=== PATIENT | female | born 1950 | race Caucasian/White ===

== ENCOUNTER 2016-07-21 06:27 | Day surgery (SDC) | payer BC, MEDICARE ==
[~2016-07-21] VITALS: Ht 167.6 cm; Wt 151.7 kg
[~2016-07-21 06:27] MED LIST: ACET-2723 PO; AMLO5TAB2 PO; ASPI-557 PO; BISO5TAB2 PO; CHOL200024 PO; LEVO25TA9 PO; METF500T7 PO; RABE20TA28 PO
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
--- OUTSIDE RECORDS SUMMARY | 2016-07-21 06:31 | XMS REPORT | Referral Summary ---
Author Author [facility] Organization [facility] Address Unknown Phone Unavailable Care Team Providers Care Senior Software Manager Name Role Phone Brijesh Lyons Primary Care Physician [phone] Encounter [facility] Date(s): 12/28/14 - 12/28/14 [facility], [address] [place] [address]- Discharge Disposition: 01-Home or Self Care Attending Physician: Lex Lyons MD Admitting Physician: Lex Lyons MD Vital Signs Most recent to 1 oldest [Reference Range]: Temperature Tympanic 35.6 degC [36.6-38.1 degC] *LOW* (12/28/14 8:25 AM) Peripheral Pulse 84 bpm Rate [60-100 bpm] (12/28/14 8:25 AM) Respiratory Rate 18 br/min [14-20 br/min] (12/28/14 8:25 AM) Blood Pressure 184/88 mmHg [90-140/60-90 mmHg] *HI* (12/28/14 8:25 AM) SpO2 98 % (12/28/14 8:25 AM) Problem List Condition Effective Dates Status Health Status Informant Acute chest Active pain(Confirmed) Left anterior knee Active pain(Confirmed) Benign essential Active hypertension(Confirm ed) Visit for screening Active mammogram(Confirmed) Leg Active cramps(Confirmed) Elevated Active BP(Confirmed) GERD Active (gastroesophageal reflux disease)(Confirmed) Adult Active hypothyroidism(Confi rmed) Impaired fasting Active blood sugar(Confirmed) Well adult Active exam(Confirmed) Morbid Active obesity(Confirmed) Neck pain(Confirmed) Active Osteoarthritis(Confi Active rmed) Need for shingles Active vaccine(Confirmed) Asymptomatic Active PVCs(Confirmed) Allergies, Adverse Reactions, Alerts Substance Reaction Severity Status citalopram1 Adverse reaction Active lisinopril dry cough, racing heartbeat, and mild chest Active discomfort tobramycin ophthalmic2 adverse reaction Active traMADol3 adverse reaction Active 1Worsened GERD 2Swelling of eyes 3Elevated Blood Pressure and Hypertension Medications amLODIPine 5 mg oral tablet 5 mg 1 tabs, Oral, Daily, # 30 tabs, 1 Refill(s), Pharmacy: [facility] # [id number], 1 tabs Oral Daily Start Date: 05/25/15 Status: Ordered bisoprolol 5 mg oral tablet 2.5 mg 0.5 tabs, Oral, Daily, # 45 tabs, 6 Refill(s), Pharmacy: [facility] #[id number], 0.5 tabs Oral Daily Start Date: 05/02/15 Status: Ordered levothyroxine 25 mcg (0.025 mg) oral tablet 25 mcg 1 tabs, Oral, Daily, # 30 tabs, 11 Refill(s), Pharmacy: [facility] #[id number], 1 tabs Oral Daily Start Date: 11/16/14 Status: Ordered Miscellaneous DME DME Item Accu check Lindsay test strips. Test blood sugar one time daily for diabetes type 2. E11.9, See Instructions, # 100 Each, 3 Refill(s), Pharmacy: [facility] #[id number], Accu check Lindsay test strips. Test blood sugar one time daily for mark... Start Date: 01/25/15 Status: Ordered Miscellaneous DME DME Item Accu check Lindsay Lancets. Use to test blood sugar daily for diabetes type 2 E11.9, See Instructions, # 100 Each, 3 Refill(s), Pharmacy: [facility] #[id number], Accu check Lindsay Lancets. Use to test blood sugar daily for diabetes type 2 E11.... Start Date: 01/25/15 Status: Ordered RABEprazole 20 mg oral delayed release tablet 20 mg 1 tabs, Oral, Daily, # 60 tabs, 11 Refill(s), Pharmacy: [facility] # [id number], 1 tabs Oral Daily,x60 days Start Date: 11/15/14 Stop Date: 11/04/16 Status: Ordered Tylenol Regular Strength mg, Oral, q4hr, 0 Refill(s) Start Date: 04/04/15 Status: Ordered Vitamin D3 2000 IU, Oral, Daily, 0 Refill(s) Start Date: 09/14/13 Status: Ordered Results Chemistry Most recent to 1 oldest [Reference Range]: Sodium Lvl [135-144 142 mEq/L mEq/L] (12/28/14 9:11 AM) Potassium Lvl 4.8 mEq/L [3.5-5.2 mEq/L] (12/28/14 9:11 AM) Chloride [99-111 109 mEq/L mEq/L] (12/28/14 9:11 AM) CO2 [22-31 mEq/L] 25 mEq/L (12/28/14 9:11 AM) AGAP [3-20] 8 (12/28/14 9:11 AM) BUN [10-20 mg/dL] 27 mg/dL *HI* (12/28/14 9:11 AM) Glucose Lvl [70-99 133 mg/dL mg/dL] *HI* (12/28/14 9:11 AM) Creatinine Lvl 1.23 mg/dL [0.57-1.11 mg/dL] *HI* (12/28/14 9:11 AM) eGFR [>60 mL/min] 44 mL/min 1 *ABN* (12/28/14 9:11 AM) Calcium Lvl 9.6 mg/dL [8.9-10.5 mg/dL] (12/28/14 9:11 AM) TSH [0.35-4.94] 3.86 (12/28/14 9:11 AM) Hgb A1c [4.1-5.6 %] 6.1 % *HI* (12/28/14 9:11 AM) eAvg Glucose 128.4 mg/dL (12/28/14 9:11 AM) 1Result Comment: Multiply eGFR results by 1.21 for race. Immunizations Vaccine Date Refusal Reason tetanus/diphth/pertuss (Tdap) adult/adol 09/29/05 hepatitis A adult vaccine 11/15/14 influenza virus vaccine, inactivated 02/08/15 Procedures Procedure Date Related Diagnosis Body Site Biopsy Bone Marrow1 02/23/15 Procedure with Anesthesia2 02/23/15 Collection of venous blood by venipuncture 12/28/14 Colonoscopy3 2009 Esophagogastroduodenoscopy 2009 Esophagogastroduodenoscopy 2004 Chest pain4 1999 Nasal endoscopy with nasal polypectomy5 1997 Caesarean delivery following previous 1991 caesarean6 Umbilical herniorrhaphy 1985 Cholecystectomy 1974 Tonsillectomy 1968 SVD7 1auto-populated from documented surgical case 2auto-populated from documented surgical case 3normal, repeat in 10 years 4Hospitalized for chest pain and acid reflux 5sinus surgery 6only one 72 SVDs Social History Social History Type Response Smoking Status Never smoker Assessment and Plan Extracted from: Title: Ambulatory Patient Education Author: Lex Lyons MD Date: 12/28 Family Medicine Premature Ventricular Contraction Premature ventricular contraction (PVC) is an irregularity of the heart rhythm involving extra or skipped heartbeats. In some cases, they may occur without obvious cause or heart disease. Other times, they can be caused by an electrolyte change in the blood. These need to be corrected. They can also be seen when there is not enough oxygen going to the heart. A common cause of this is plaque or cholesterol buildup. This buildup decreases the blood supply to the heart. In addition, extra beats may be caused or aggravated by: Excessive smoking. Alcohol consumption. Caffeine. Certain medications Some street drugs. SYMPTOMS The sensation of feeling your heart skipping a beat (palpitations). In many cases, the person may have no symptoms. SIGNS AND TESTS A physical examination may show an occasional irregularity, but if the PVC beats do not happen often, they may not be found on physical exam. Blood pressure is usually normal. Other tests that may find extra beats of the heart are: An EKG (electrocardiogram) A Holter monitor which can monitor your heart over longer periods of time An Angiogram (study of the heart arteries). TREATMENT Usually extra heartbeats do not need treatment. The condition is treated only if symptoms are severe or if extra beats are very frequent or are causing problems. An underlying cause, if discovered, may also require treatment. Treatment may also be needed if there may be a risk for other more serious cardiac arrhythmias. PREVENTION Moderation in caffeine, alcohol, and tobacco use may reduce the risk of ectopic heartbeats in some people. Exercise often helps people who lead a sedentary (inactive) lifestyle. PROGNOSIS PVC heartbeats are generally harmless and do not need treatment. RISKS AND COMPLICATIONS Ventricular tachycardia (occasionally). There usually are no complications. Other arrhythmias (occasionally). SEEK IMMEDIATE MEDICAL CARE IF: You feel palpitations that are frequent or continual. You develop chest pain or other problems such as shortness of breath, sweating, or nausea and vomiting. You become light-headed or faint (pass out). You get worse or do not improve with treatment. Document Released: 11/14/2004 Document Revised: 06/21/2012 Document Reviewed: [facility] Patient Information 2015 [employer]. This information is not intended to replace advice given to you by your health care provider. Make sure you discuss any questions you have with your health care provider. No follow up information was provided. Extracted from: Title: PVCs, HTN Author: Lex Lyons MD Date: 12/28/14 Impression and Plan Diagnosis Acute chest pain (ICD9 786.50, Working, Medical). Adult hypothyroidism (ICD9 244.9, Working, Medical). Asymptomatic PVCs (ICD9 427.69, Working, Medical). Benign essential hypertension (ICD9 401.1, Working, Medical). GERD (gastroesophageal reflux disease) (ICD9 530.81, Working, Medical). Impaired fasting blood sugar (ICD9 790.21, Working, Medical). Leg cramps (ICD9 729.82, Working, Medical). Morbid obesity (ICD9 278.01, Working, Medical). Neck pain (ICD9 723.1, Working, Medical). Plan: 1) Healthy diet and daily exercise generally helps most things. 2) Flu shot recommended this fall. 3) Increase your BP med to the 75/50 dose daily. 4) Stop your ibuprofen. May try Voltaren gel instead to the left knee. 5) May continue your other meds. 6) Lab today. 7) See me in 6 weeks and as needed. . Orders Orders (Selected) Outpatient Orders Ordered Office Visit Level 4 Est 21752: Future (On Hold) BMP: Hgb A1c: TSH 3rd Generation: Prescriptions Prescribed Voltaren 1% topical gel: 4 g, Topical, QID, PRN: as needed for knee pain, 480 g , 11 Refill(s) triamterene-hydrochlorothiazide 75 mg-50 mg oral tablet: 1 tabs, Oral, Daily, 30 tabs, 11 Refill(s). Dx/Order Association Plan: Diagnosis: Acute chest pain Comment: Ordered: Office Visit Level 4 Est [id number]; 12/28/14 8:26:00 CDT, Benign essential hypertension | Acute chest pain | GERD (gastroesophageal reflux disease) | Neck pain | Impaired fasting blood sugar Diagnosis: Adult hypothyroidism Comment: Diagnosis: Asymptomatic PVCs Comment: Diagnosis: Benign essential hypertension Comment: Ordered: Office Visit Level 4 Est [id number]; 12/28/14 8:26:00 CDT, Benign essential hypertension | Acute chest pain | GERD (gastroesophageal reflux disease) | Neck pain | Impaired fasting blood sugar Diagnosis: GERD (gastroesophageal reflux disease) Comment: Ordered: Office Visit Level 4 Est [id number]; 12/28/14 8:26:00 CDT, Benign essential hypertension | Acute chest pain | GERD (gastroesophageal reflux disease) | Neck pain | Impaired fasting blood sugar Diagnosis: Impaired fasting blood sugar Comment: Ordered: Office Visit Level 4 Est [id number]; 12/28/14 8:26:00 CDT, Benign essential hypertension | Acute chest pain | GERD (gastroesophageal reflux disease) | Neck pain | Impaired fasting blood sugar Diagnosis: Leg cramps Comment: Diagnosis: Morbid obesity Comment: Diagnosis: Neck pain Comment: Ordered: Office Visit Level 4 Est [id number]; 12/28/14 8:26:00 CDT, Benign essential hypertension | Acute chest pain | GERD (gastroesophageal reflux disease) | Neck pain | Impaired fasting blood sugar Diagnosis: Benign essential hypertension Comment: Diagnosis: Impaired fasting blood sugar Comment: Diagnosis: Adult hypothyroidism Comment: Additional Orders: Comment: Ordered: Voltaren 1% topical gel,4 g, Topical, QID, as needed for knee pain, # 480 g, 11 Refill(s), Pharmacy: [facility] #[id number] Ordered: triamterene-hydrochlorothiazide 75 mg-50 mg oral tablet,1 tabs, Oral, Daily, # 30 tabs, 11 Refill(s), Pharmacy: [facility] #[id number] End of Orders ."
--- OUTSIDE RECORDS SUMMARY | 2016-07-21 06:31 | XMS REPORT | Referral Summary ---
Author Author [facility] Organization [facility] Address Unknown Phone Unavailable Care Team Providers Care Geotechnical Field Technician Name Role Phone Brijesh Lyons Primary Care Physician [phone] Encounter VC Date(s): 02/23/15 - 02/23/15 [facility] [address] [place] [address] [phone] Discharge Diagnosis: Gammopathy, monoclonal Discharge Disposition: 01-Home or Self Care Attending Physician: Zaid Mccurdy DO Admitting Physician: Zaid Mccurdy DO Vital Signs Most recent to 1 oldest [Reference Range]: Temperature Temporal 35.8 degC Artery [36.3-37.8 *LOW* degC] (02/23/15 8:24 AM) Peripheral Pulse 77 bpm Rate [60-100 bpm] (02/23/15 8:24 AM) Heart Rate Monitored 71 bpm [60-100 bpm] (02/23/15 10:15 AM) Respiratory Rate 24 br/min [14-20 br/min] *HI* (02/23/15 10:15 AM) Blood Pressure 121/59 mmHg [90-140/60-90 mmHg] (02/23/15 10:15 AM) SpO2 95 % (02/23/15 10:15 AM) Problem List Condition Effective Dates Status Health Status Informant Acute chest Active pain(Confirmed) Left anterior knee Active pain(Confirmed) Benign essential Active hypertension(Confirm ed) Visit for screening Active mammogram(Confirmed) Leg Active cramps(Confirmed) Elevated Active BP(Confirmed) GERD Active (gastroesophageal reflux disease)(Confirmed) Adult Active hypothyroidism(Confi rmed) Impaired fasting Active blood sugar(Confirmed) Well adult Active exam(Confirmed) Morbid Active obesity(Confirmed) Neck pain(Confirmed) Active Need for shingles Active vaccine(Confirmed) Asymptomatic Active PVCs(Confirmed) Allergies, Adverse Reactions, Alerts Substance Reaction Severity Status citalopram1 Adverse reaction Active tobramycin ophthalmic2 adverse reaction Active traMADol3 adverse reaction Active 1Worsened GERD 2Swelling of eyes 3Elevated Blood Pressure and Hypertension Medications amLODIPine 10 mg oral tablet 10 mg 1 tabs, Oral, Daily, # 30 tabs, 11 Refill(s), Pharmacy: [facility] # [id number], 1 tabs Oral Daily Start Date: 02/08/15 Status: Ordered levothyroxine 25 mcg (0.025 mg) oral tablet 25 mcg 1 tabs, Oral, Daily, # 30 tabs, 11 Refill(s), Pharmacy: [facility] #[id number], 1 tabs Oral Daily Start Date: 11/16/14 Status: Ordered Miscellaneous DME DME Item Accu check Lindsay test strips. Test blood sugar one time daily for diabetes type 2. E11.9, See Instructions, # 100 Each, 3 Refill(s), Pharmacy: [facility] #[id number], Accu check Lindsay test strips. Test blood sugar one time daily for mark... Start Date: 01/25/15 Status: Ordered Miscellaneous DME DME Item Accu check Lindsay Lancets. Use to test blood sugar daily for diabetes type 2 E11.9, See Instructions, # 100 Each, 3 Refill(s), Pharmacy: [facility] #[id number], Accu check Lindsay Lancets. Use to test blood sugar daily for diabetes type 2 E11.... Start Date: 01/25/15 Status: Ordered RABEprazole 20 mg oral delayed release tablet 20 mg 1 tabs, Oral, Daily, # 60 tabs, 11 Refill(s), Pharmacy: [facility] # [id number], 1 tabs Oral Daily,x60 days Start Date: 11/15/14 Stop Date: 11/04/16 Status: Ordered Vitamin D3 2000 IU, Oral, Daily, 0 Refill(s) Start Date: 09/14/13 Status: Ordered Results Hematology Most recent to 1 oldest [Reference Range]: WBC [4.8-10.8 5.4 10*3/uL 10*3/uL] (02/23/15 8:35 AM) RBC [4.00-5.20] 4.38 (02/23/15 8:35 AM) Hgb [12.0-16.0 12.4 gm/dL gm/dL] (02/23/15 8:35 AM) Hct [37.0-47.0 %] 36.5 % *LOW* (02/23/15 8:35 AM) MCV [82.0-99.0 fL] 83.3 fL (02/23/15 8:35 AM) MCH [27.0-32.0 pg] 28.3 pg (02/23/15 8:35 AM) MCHC [32.0-36.0 34.0 gm/dL gm/dL] (02/23/15 8:35 AM) RDW [11.5-14.5 %] 13.5 % (02/23/15 8:35 AM) Platelet [150-400 163 10*3/uL 10*3/uL] (02/23/15 8:35 AM) MPV [9.4-12.4 fL] 11.0 fL (02/23/15 8:35 AM) Immature 0.2 % Granulocytes (02/23/15 8:35 AM) [0.0-1.0 %] Neutrophils [51-75 78 % %] *HI* (02/23/15 8:35 AM) Lymphocytes [20-46 14 % %] *LOW* (02/23/15 8:35 AM) Monocytes [4-11 %] 5 % (02/23/15 8:35 AM) Eosinophils [0-4 %] 2 % (02/23/15 8:35 AM) Basophils [0-2 %] 0 % (02/23/15 8:35 AM) Neutro Absolute 4.24 10*3 [1.90-7.00 10*3] (02/23/15 8:35 AM) Lymph Absolute 0.74 10*3 [0.80-3.30 10*3] *LOW* (02/23/15 8:35 AM) [place] Absolute 0.28 10*3 [0.30-1.00 10*3] *LOW* (02/23/15 8:35 AM) Eos Absolute 0.12 10*3 [0.00-0.50 10*3] (02/23/15 8:35 AM) Baso Absolute 0.02 10*3 [0.00-0.20 10*3] (02/23/15 8:35 AM) Nucleated RBC 0.0 /100 WBC Automated [0 /100 (02/23/15 8:35 AM) WBC] Chemistry Most recent to 1 oldest [Reference Range]: Blood Glucose, 110 mg/dL Capillary [70-100 *HI* mg/dL] (02/23/15 8:36 AM) Blood Glucose, 110 mg/dL Capillary [74-106 *HI* mg/dL] (02/23/15 8:36 AM) Immunizations Vaccine Date Refusal Reason hepatitis A adult vaccine 11/15/14 influenza virus vaccine, inactivated 02/08/15 Procedures Procedure Date Related Diagnosis Body Site Biopsy Bone Marrow1 02/23/15 Procedure with Anesthesia2 02/23/15 Colonoscopy2009 Esophagogastroduodenoscopy 2009 Esophagogastroduodenoscopy 2003 Chest pain4 1999 Nasal endoscopy with nasal polypectomy5 1997 Caesarean delivery following previous 1990 caesarean6 Umbilical herniorrhaphy 1984 Cholecystectomy 1974 Tonsillectomy 1969 SVD7 1auto-populated from documented surgical case 2auto-populated from documented surgical case 3normal, repeat in 10 years 4Hospitalized for chest pain and acid reflux 5sinus surgery 6only one 72 SVDs Social History Social History Type Response Smoking Status Never smoker Assessment and Plan No data available for this section
--- OUTSIDE RECORDS SUMMARY | 2016-07-21 06:31 | XMS REPORT | Referral Summary ---
Author Author [facility] Organization [facility] Address Unknown Phone Unavailable Care Team Providers Care Yacht Captain Name Role Phone Brijesh Lyons Primary Care Physician [phone] Encounter VC Date(s): 02/08/15 - 02/08/15 [facility] [address] [place] [address] [place] Discharge Disposition: 01-Home or Self Care Attending Physician: Lex Lyons MD Admitting Physician: Lex Lyons MD Vital Signs Most recent to 1 oldest [Reference Range]: Temperature Tympanic 35.8 degC [36.6-38.1 degC] *LOW* (02/08/15 10:51 AM) Peripheral Pulse 84 bpm Rate [60-100 bpm] (02/08/15 10:51 AM) Blood Pressure 138/76 mmHg [90-140/60-90 mmHg] (02/08/15 10:51 AM) Problem List Condition Effective Dates Status [...] TABLET BY MOUTH DAILY, # 30 tabs, 3 Refill(s), eRx: [facility] #[id number], TAKE ONE TABLET BY MOUTH DAILY Start Date: 07/19/15 Status: Ordered Aspirin Low Dose 81 mg, Oral, Daily, 0 Refill(s) Start Date: 07/30/15 Status: Ordered bisoprolol 5 mg oral tablet 2.5 mg 0.5 tabs, Oral, Daily, # 45 tabs, 6 Refill(s), Pharmacy: [facility] #[id number], 0.5 tabs Oral Daily Start Date: 05/02/15 Status: Ordered levothyroxine 25 mcg (0.025 mg) oral tablet 25 mcg 1 tabs, Oral, Daily, # 30 tabs, 11 Refill(s), Pharmacy: [facility] #[id number], 1 tabs Oral Daily Start Date: 11/16/14 Status: Ordered Miscellaneous DME DME Item Accu check Lindsay test strips. Test blood sugar one time daily for diabetes type 2. E11.9, See Instructions, # 100 Each, 3 Refill(s), Pharmacy: [facility] #[id number], Accu check Lindsay test strips. Test blood sugar one time daily for mark... Start Date: 01/25/15 Status: Ordered Miscellaneous DME DME Item Accu check Lindsay Lancets. Use to test blood sugar daily for diabetes type 2 E11.9, See Instructions, # 100 Each, 3 Refill(s), Pharmacy: [facility] #[id number], Accu check Lindsay Lancets. Use to test blood sugar daily for diabetes type 2 E11.... Start Date: 01/25/15 Status: Ordered Tylenol Regular Strength 650 mg, Oral, Daily, for left knee pain, 0 Refill(s) Start Date: 04/04/15 Status: Ordered Vitamin D3 2000 IU, Oral, Daily, 0 Refill(s) Start Date: 09/14/13 Status: Ordered Results No data available for this section Immunizations Vaccine Date Refusal Reason tetanus/diphth/pertuss (Tdap) adult/adol 09/29/05 hepatitis A adult vaccine 11/15/14 influenza virus vaccine, inactivated 02/08/15 Procedures Procedure Date Related Diagnosis Body Site Biopsy Bone Marrow1 02/23/15 Procedure with Anesthesia2 02/23/15 Colonoscopy3 2009 Esophagogastroduodenoscopy 2009 Esophagogastroduodenoscopy 2004 Chest pain4 1999 Nasal endoscopy with nasal polypectomy5 1997 Caesarean delivery following previous 1991 caesarean6 Umbilical herniorrhaphy 1985 Cholecystectomy 1975 Tonsillectomy 1969 SVD7 1auto-populated from documented surgical case 2auto-populated from documented surgical case 3normal, repeat in 10 years 4Hospitalized for chest pain and acid reflux 5sinus surgery 6only one 72 SVDs Social History Social History Type Response Smoking Status Never smoker Assessment and Plan Extracted from: Title: Ambulatory Patient Education Author: Lex Lyons MD Date: Family Medicine Diabetes and Exercise Exercising regularly is important. It is not just about losing weight. It has many health benefits, such as: Improving your overall fitness, flexibility, and endurance. Increasing your bone density. Helping with weight control. Decreasing your body fat. Increasing your muscle strength. Reducing stress and tension. Improving your overall health. People with diabetes who exercise gain additional benefits because exercise: Reduces appetite. Improves the body's use of blood sugar (glucose). Helps lower or control blood glucose. Decreases blood pressure. Helps control blood lipids (such as cholesterol and triglycerides). Improves the body's use of the hormone insulin by: Increasing the body's insulin sensitivity. Reducing the body's insulin needs. Decreases the risk for heart disease because exercising: Lowers cholesterol and triglycerides levels. Increases the levels of good cholesterol (such as high-density lipoproteins [HDL]) in the body. Lowers blood glucose levels. YOUR ACTIVITY PLAN Choose an activity that you enjoy and set realistic goals. Your health care provider or chemical production machine operator can help you make an activity plan that works for you. Exercise regularly as directed by your health care provider. This includes: Performing resistance training twice a week such as push-ups, sit-ups, lifting weights, or using resistance bands. Performing 150 minutes of cardio exercises each week such as walking, running, or playing sports. Staying active and spending no more than 90 minutes at one time being inactive. Even short bursts of exercise are good for you. Three 10-minute sessions spread throughout the day are just as beneficial as a single 30-minute session. Some exercise ideas include: Taking the dog for a walk. Taking the stairs instead of the elevator. Dancing to your favorite song. Doing an exercise video. Doing your favorite exercise with a friend. RECOMMENDATIONS FOR EXERCISING WITH TYPE 1 OR TYPE 2 DIABETES Check your blood glucose before exercising. If blood glucose levels are greater than 240 mg/dL, check for urine ketones. Do not exercise if ketones are present. Avoid injecting insulin into areas of the body that are going to be exercised. For example, avoid injecting insulin into: The arms when playing tennis. The legs when jogging. Keep a record of: Food intake before and after you exercise. Expected peak times of insulin action. Blood glucose levels before and after you exercise. The type and amount of exercise you have done. Review your records with your health care provider. Your health care provider will help you to develop guidelines for adjusting food intake and insulin amounts before and after exercising. If you take insulin or oral hypoglycemic agents, watch for signs and symptoms of hypoglycemia. They include: Dizziness. Shaking. Sweating. Chills. Confusion. Drink plenty of water while you exercise to prevent dehydration or heat stroke. Body water is lost during exercise and must be replaced. Talk to your health care provider before starting an exercise program to make sure it is safe for you. Remember, almost any type of activity is better than none. Document Released: 06/19/2004 Document Revised: 08/14/2014 Document Reviewed: ExitCare Patient Information 2015 [employer] [facility]. This information is not intended to replace advice given to you by your health care provider. Make sure you discuss any questions you have with your health care provider. Diabetes and Foot Care Diabetes may cause you to have problems because of poor blood supply ( circulation) to your feet and legs. This may cause the skin on your feet to become thinner, break easier, and heal more slowly. Your skin may become dry, and the skin may peel and crack. You may also have nerve damage in your legs and feet causing decreased feeling in them. You may not notice minor injuries to your feet that could lead to infections or more serious problems. Taking care of your feet is one of the most important things you can do for yourself. HOME CARE INSTRUCTIONS Wear shoes at all times, even in the house. Do not go barefoot. Bare feet are easily injured. Check your feet daily for blisters, cuts, and redness. If you cannot see the bottom of your feet, use a mirror or ask someone for help. Wash your feet with warm water (do not use hot water) and mild soap. Then pat your feet and the areas between your toes until they are completely dry. Do not soak your feet as this can dry your skin. Apply a moisturizing lotion or petroleum jelly (that does not contain alcohol and is unscented) to the skin on your feet and to dry, brittle toenails. Do not apply lotion between your toes. Trim your toenails straight across. Do not dig under them or around the cuticle. File the edges of your nails with an emery board or nail file. Do not cut corns or calluses or try to remove them with medicine. Wear clean socks or stockings every day. Make sure they are not too tight. Do not wear knee-high stockings since they may decrease blood flow to your legs. Wear shoes that fit properly and have enough cushioning. To break in new shoes, wear them for just a few hours a day. This prevents you from injuring your feet. Always look in your shoes before you put them on to be sure there are no objects inside. Do not cross your legs. This may decrease the blood flow to your feet. If you find a minor scrape, cut, or break in the skin on your feet, keep it and the skin around it clean and dry. These areas may be cleansed with mild soap and water. Do not cleanse the area with peroxide, alcohol, or iodine. When you remove an adhesive bandage, be sure not to damage the skin around it. If you have a wound, look at it several times a day to make sure it is healing. Do not use heating pads or hot water bottles. They may burn your skin. If you have lost feeling in your feet or legs, you may not know it is happening until it is too late. Make sure your health care provider performs a complete foot exam at least annually or more often if you have foot problems. Report any cuts, sores, or bruises to your health care provider immediately. SEEK MEDICAL CARE IF: You have an injury that is not healing. You have cuts or breaks in the skin. You have an ingrown nail. You notice redness on your legs or feet. You feel burning or tingling in your legs or feet. You have pain or cramps in your legs and feet. Your legs or feet are numb. Your feet always feel cold. SEEK IMMEDIATE MEDICAL CARE IF: There is increasing redness, swelling, or pain in or around a wound. There is a red line that goes up your leg. Pus is coming from a wound. You develop a fever or as directed by your health care provider. You notice a bad smell coming from an ulcer or wound. Document Released: 03/27/2001 Document Revised: 11/30/2013 Document Reviewed: ExitCare Patient Information 2015 [employer]. This information is not intended to replace advice given to you by your health care provider. Make sure you discuss any questions you have with your health care provider. No follow up information was provided. Extracted from: Title: DM, HTN Author: Lex Lyons MD Date: 02/08/15 Impression and Plan Diagnosis Left anterior knee pain (SZO36-MN M25.562, Working, Medical). Benign essential hypertension (QLF16-WH I10, Working, Medical). GERD (gastroesophageal reflux disease) (LRQ25-YK K21.9, Working, Medical). Adult hypothyroidism (UHS26-WT E03.9, Working, Medical). Morbid obesity (FVX21-XY E66.01, Working, Medical). Type 2 diabetes, diet controlled (UME13-IG E11.9, Working, Medical). Need for influenza vaccination (QAO12-LY Z23, Working, Medical). Plan: 1) Continue your healthy diet and daily exercise. 2) Continue your current meds. 3) Flu shot today. 4) See me in 2 months and as needed. 5) Diabetic Ed sheet #1 given today.. Orders Orders (Selected) Outpatient Orders Ordered Office Visit Level 4 Est 58858: influenza virus vaccine, inactivated: 0.5 mL, IntraMuscular, Once Prescriptions Prescribed amLODIPine 10 mg oral tablet: 10 mg=1 tabs, Oral, Daily, 30 tabs, 11 Refill(s). Dx/Order Association Plan: Diagnosis: Adult hypothyroidism Comment: Diagnosis: Benign essential hypertension Comment: Ordered: Office Visit Level 4 Est 96983; 02/08/15 11:14:00 CDT, Type 2 diabetes, diet controlled | Benign essential hypertension | Left anterior knee pain | GERD (gastroesophageal reflux disease) Diagnosis: GERD (gastroesophageal reflux disease) Comment: Ordered: Office Visit Level 4 Est 68164; 02/08/15 11:14:00 CDT, Type 2 diabetes, diet controlled | Benign essential hypertension | Left anterior knee pain | GERD (gastroesophageal reflux disease) Diagnosis: Left anterior knee pain Comment: Ordered: Office Visit Level 4 Est 42458; 02/08/15 11:14:00 CDT, Type 2 diabetes, diet controlled | Benign essential hypertension | Left anterior knee pain | GERD (gastroesophageal reflux disease) Diagnosis: Morbid obesity Comment: Diagnosis: Need for influenza vaccination Comment: Ordered: influenza virus vaccine, inactivated; 0.5 mL, IntraMuscular, Once, First Dose: 02/08/15 11:16:00 CDT, Stop Date: 02/08/15 11: 16:00 CDT Diagnosis: Type 2 diabetes, diet controlled Comment: Ordered: Office Visit Level 4 Est 50257; 02/08/15 11:14:00 CDT, Type 2 diabetes, diet controlled | Benign essential hypertension | Left anterior knee pain | GERD (gastroesophageal reflux disease) Additional Orders: Comment: Ordered: amLODIPine 10 mg oral tablet,10 mg 1 tabs, Oral, Daily, # 30 tabs, 11 Refill(s), Pharmacy: [facility] #[id number], 1 tabs Oral Daily End of Orders ."
--- OUTSIDE RECORDS SUMMARY | 2016-07-21 06:32 | XMS REPORT | Referral Summary ---
Author Author [facility] Organization [facility] Address Unknown Phone Unavailable Care Team Providers Care Incident Response Lead Name Role Phone Brijesh Lyons Primary Care Physician [phone] Encounter Date(s): 05/16/15 - 05/16/15 [facility] [address] [place] [id number] Discharge Disposition: 01-Home or Self Care Attending Physician: Pedro Gonzalez MD Admitting Physician: Pedro Gonzalez MD Vital Signs No data available for this section Problem List Condition Effective Dates Status Health [...] Hypertension Medications amLODIPine 10 mg oral tablet 5 mg 0.5 tabs, Oral, Daily, # 30 tabs, 11 Refill(s), other reason (Rx), 1 tabs Oral Daily Start Date: 04/04/15 Status: Ordered bisoprolol 5 mg oral tablet 2.5 mg 0.5 tabs, Oral, Daily, # 45 tabs, 6 Refill(s), Pharmacy: [facility] #[id number], 0.5 tabs Oral Daily Start Date: 05/02/15 Status: Ordered levothyroxine 25 mcg (0.025 mg) oral tablet 25 mcg 1 tabs, Oral, Daily, # 30 tabs, 11 Refill(s), Pharmacy: [facility] #[id number], 1 tabs Oral Daily Start Date: 11/16/14 Status: Ordered Miscellaneous DME DME Item Accu check Lindsay test strips. Test blood sugar one time daily for diabetes type 2. E11.9, See Instructions, # 100 Each, 3 Refill(s), Pharmacy: [facility] #[id number], Accu check Lindsay test strips. Test blood sugar one time daily for mark... Start Date: 01/25/15 Status: Ordered Miscellaneous DME DME Item Accu check Lindsay Lancets. Use to test blood sugar daily for diabetes type 2 E11.9, See Instructions, # 100 Each, 3 Refill(s), Pharmacy: [facility] #[id number], Accu check Lindsay Lancets. Use to test blood sugar daily for diabetes type 2 E11.... Start Date: 01/25/15 Status: Ordered RABEprazole 20 mg oral delayed release tablet 20 mg 1 tabs, Oral, Daily, # 60 tabs, 11 Refill(s), Pharmacy: [facility] # [id number], 1 tabs Oral Daily,x60 days Start Date: [...] Anesthesia2 02/23/15 Colonoscopy3 2009 Esophagogastroduodenoscopy 2009 Esophagogastroduodenoscopy 2003 Chest pain4 1999 Nasal endoscopy with nasal polypectomy5 1998 Caesarean delivery following previous 1991 caesarean6 Umbilical herniorrhaphy 1984 Cholecystectomy 1974 Tonsillectomy 1968 SVD7 1auto-populated from documented surgical case 2auto-populated from documented surgical case 3normal, repeat in 10 years 4Hospitalized for chest pain and acid reflux 5sinus surgery 6only one 72 SVDs Social History Social History Type Response Smoking Status Never smoker Assessment and Plan No data available for this section
--- OUTSIDE RECORDS SUMMARY | 2016-07-21 06:32 | XMS REPORT | Referral Summary ---
Author Author [facility], Family Medicine Organization [facility] Address Unknown Phone Unavailable Care Team Providers Care Casting Assistant Name Role Phone Brijesh Lyons Primary Care Physician [phone] Encounter VC Date(s): 10/16/15 - 10/16/15 [facility], [address] [place] [address] Discharge Disposition: 01-Home or Self Care Attending Physician: Lex Lyons MD Admitting Physician: Lex Lyons MD Vital Signs Most recent to 1 oldest [Reference Range]: Temperature Tympanic 35.9 degC [36.6-38.1 degC] *LOW* (10/16/15 9:11 AM) Apical Heart Rate 72 bpm [60-100 bpm] (10/16/15 9:11 AM) Blood Pressure 124/74 mmHg [90-140/60-90 mmHg] (10/16/15 9:11 AM) SpO2 97 % (10/16/15 9:11 AM) Problem List Condition Effective Dates Status [...] DAILY, # 30 tabs, 3 Refill(s), eRx: [facility] #[id number], TAKE ONE TABLET BY MOUTH DAILY Start Date: 07/19/15 Status: Ordered Aspirin Low Dose 81 mg, Oral, Daily, 0 Refill(s) Start Date: 07/30/15 Status: Ordered Benadryl See Instructions, Given IV prior to Rituxan, 0 Refill(s) Start Date: 10/16/15 Status: Ordered bisoprolol 5 mg oral tablet 2.5 mg 0.5 tabs, Oral, Daily, # 45 tabs, 6 Refill(s), Pharmacy: [facility] #[id number], 0.5 tabs Oral Daily Start Date: 05/02/15 Status: Ordered levothyroxine 25 mcg (0.025 mg) oral tablet 25 mcg 1 tabs, Oral, Daily, # 30 tabs, 11 Refill(s), Pharmacy: [facility] #[id number], 1 tabs Oral Daily Start Date: 11/16/14 Status: Ordered Miscellaneous DME DME Item Accu check Lindsay test strips. Test blood sugar one time daily for diabetes type 2. E11.9, See Instructions, # 100 Each, 3 Refill(s), Pharmacy: [facility] #[id number], Accu check Lindsay test strips. Test blood sugar one time daily for mark... Start Date: 01/25/15 Status: Ordered Miscellaneous DME DME Item Accu check Lindsay Lancets. Use to test blood sugar daily for diabetes type 2 E11.9, See Instructions, # 100 Each, 3 Refill(s), Pharmacy: [facility] #[id number], Accu check Lindsay Lancets. Use to test blood sugar daily for diabetes type 2 E11.... Start Date: 01/25/15 Status: Ordered Rituxan mg/m2, IV, qWeek, Dr. Whitney, 0 Refill(s) Start Date: 10/16/15 Status: Ordered Tylenol Regular Strength 650 mg, [...] Author: Lex Lyons MD Date: Family Medicine Gastroesophageal Reflux Disease, Adult Gastroesophageal reflux disease (GERD) happens when acid from your stomach flows up into the esophagus. When acid comes in contact with the esophagus, the acid causes soreness (inflammation) in the esophagus. Over time, GERD may create small holes (ulcers) in the lining of the esophagus. CAUSES Increased body weight. This puts pressure on the stomach, making acid rise from the stomach into the esophagus. Smoking. This increases acid production in the stomach. Drinking alcohol. This causes decreased pressure in the lower esophageal sphincter (valve or ring of muscle between the esophagus and stomach), allowing acid from the stomach into the esophagus. Late evening meals and a full stomach. This increases pressure and acid production in the stomach. A malformed lower esophageal sphincter. Sometimes, no cause is found. SYMPTOMS Burning pain in the lower part of the mid-chest behind the breastbone and in the mid-stomach area. This may occur twice a week or more often. Trouble swallowing. Sore throat. Dry cough. Asthma-like symptoms including chest tightness, shortness of breath, or wheezing. DIAGNOSIS Your caregiver may be able to diagnose GERD based on your symptoms. In some cases, X-rays and other tests may be done to check for complications or to check the condition of your stomach and esophagus. TREATMENT Your caregiver may recommend acsh-kcf-omlynbh or prescription medicines to help decrease acid production. Ask your caregiver before starting or adding any new medicines. HOME CARE INSTRUCTIONS Change the factors that you can control. Ask your caregiver for guidance concerning weight loss, quitting smoking, and alcohol consumption. Avoid foods and drinks that make your symptoms worse, such as: Caffeine or alcoholic drinks. Chocolate. Peppermint or mint flavorings. Garlic and onions. Spicy foods. [place] fruits, such as oranges, sara, or limes. Tomato-based foods such as sauce, chili, salsa, and pizza. Fried and fatty foods. Avoid lying down for the 3 hours prior to your bedtime or prior to taking a nap. Eat small, frequent meals instead of large meals. Wear loose-fitting clothing. Do not wear anything tight around your waist that causes pressure on your stomach. Raise the head of your bed 6 to 8 inches with wood blocks to help you sleep. Extra pillows will not help. Only take smul-gqd-dbejoes or prescription medicines for pain, discomfort , or fever as directed by your caregiver. Do not take aspirin, ibuprofen, or other nonsteroidal anti-inflammatory drugs (NSAIDs). SEEK IMMEDIATE MEDICAL CARE IF: You have pain in your arms, neck, jaw, teeth, or back. Your pain increases or changes in intensity or duration. You develop nausea, vomiting, or sweating (diaphoresis). You develop shortness of breath, or you faint. Your vomit is green, yellow, black, or looks like coffee grounds or blood. Your stool is red, bloody, or black. These symptoms could be signs of other problems, such as heart disease, gastric bleeding, or esophageal bleeding. MAKE SURE YOU: Understand these instructions. Will watch your condition. Will get help right away if you are not doing well or get worse. This information is not intended to replace advice given to you by your health care provider. Make sure you discuss any questions you have with your health care provider. Document Released: 01/07/2006 Document Revised: 04/20/2015 Document Reviewed: [facility] Patient Information 2016 [facility] [facility]. No follow up information was provided. Extracted from: Title: nasal obstruction, and other Author: Lex Lyons MD Date: problems Impression and Plan Diagnosis Impaired fasting blood sugar (VQU70-LM R73.01, Working, Medical). GERD (gastroesophageal reflux disease) (VOD35-LC K21.9, Working, Medical). Morbid obesity (PLB68-SH E66.01, Working, Medical). Benign essential hypertension (IQV28-TC I10, Working, Medical). Adult hypothyroidism (YJL46-HJ E03.9, Working, Medical). Waldenstrom macroglobulinemia (RNQ27-BL C88.0, Working, Medical). Maxillary pain (LMY89-TA R68.84, Working, Medical). Nasal obstruction (VRR07-UZ J34.89, Working, Medical). Chronic ethmoidal sinusitis (MPL61-DS J32.2, Working, Medical). GILDA on CPAP (LON10-KO G47.33, Working, Medical). Plan: 1) Daily saline nasal irrigation may be helpful. 2) See an ENT physician for further treatment of your sinusitis and CPAP/ nasal obstruction difficulties. 3) Continue your current meds. 4) Followup with me as scheduled. Orders Orders (Selected) Outpatient Orders Ordered Office Visit Level 4 Est 69395: . Dx/Order Association Plan: Diagnosis: Adult hypothyroidism Comment: Diagnosis: Benign essential hypertension Comment: Ordered: Office Visit Level 4 Est 93317; 10/16/15 13:22:00 CDT, Chronic ethmoidal sinusitis | Benign essential hypertension | GERD ( gastroesophageal reflux disease) | GILDA on CPAP | Waldenstrom macroglobulinemia Diagnosis: Chronic ethmoidal sinusitis Comment: Ordered: Office Visit Level 4 Est 34325; 10/16/15 13:22:00 CDT, Chronic ethmoidal sinusitis | Benign essential hypertension | GERD ( gastroesophageal reflux disease) | GILDA on CPAP | Waldenstrom macroglobulinemia Diagnosis: GERD (gastroesophageal reflux disease) Comment: Ordered: Office Visit Level 4 Est 41801; 10/16/15 13:22:00 CDT, Chronic ethmoidal sinusitis | Benign essential hypertension | GERD ( gastroesophageal reflux disease) | GILDA on CPAP | Waldenstrom macroglobulinemia Diagnosis: Impaired fasting blood sugar Comment: Diagnosis: Maxillary pain Comment: Diagnosis: Morbid obesity Comment: Diagnosis: Nasal obstruction Comment: Diagnosis: GILDA on CPAP Comment: Ordered: Office Visit Level 4 Est 84032; 10/16/15 13:22:00 CDT, Chronic ethmoidal sinusitis | Benign essential hypertension | GERD ( gastroesophageal reflux disease) | GILDA on CPAP | Waldenstrom macroglobulinemia Diagnosis: Waldenstrom macroglobulinemia Comment: Ordered: Office Visit Level 4 Est 15807; 10/16/15 13:22:00 CDT, Chronic ethmoidal sinusitis | Benign essential hypertension | GERD ( gastroesophageal reflux disease) | GILDA on CPAP | Waldenstrom macroglobulinemia End of Orders ."
--- OUTSIDE RECORDS SUMMARY | 2016-07-21 06:32 | XMS REPORT | Referral Summary ---
Author Author [facility] Medicine Organization [facility] Address Unknown Phone Unavailable Care Team Providers Care Electric Razor Assembler Name Role Phone Brijesh Lyons Primary Care Physician [phone] Encounter VC Date(s): 04/04/15 - 04/04/15 [facility], [address] [place] [address] [place] Discharge Disposition: 01-Home or Self Care Attending Physician: Lex Lyons MD Admitting Physician: Lex Lyons MD Vital Signs Most recent to 1 oldest [Reference Range]: Temperature Tympanic 37.1 degC [36.6-38.1 degC] (04/04/15 8:19 AM) Peripheral Pulse 96 bpm Rate [60-100 bpm] (04/04/15 8:19 AM) Blood Pressure 136/74 mmHg [90-140/60-90 mmHg] (04/04/15 8:19 AM) SpO2 95 % (04/04/15 8:19 AM) Problem List Condition Effective Dates Status [...] Oral Daily Start Date: 04/04/15 Status: Ordered azithromycin 250 mg oral tablet See Instructions, Take 2 tabs today, then 1 tab daily for 4 more days., # 6 tabs , 0 Refill(s), Pharmacy: [facility] #[id number], Take 2 tabs today, then 1 tab daily for 4 more days. Start Date: 04/04/15 Stop Date: 04/09/15 Status: Ordered levothyroxine 25 mcg (0.025 mg) oral tablet 25 mcg 1 tabs, Oral, Daily, # 30 tabs, 11 Refill(s), Pharmacy: [facility] #[id number], 1 tabs Oral Daily Start Date: 11/16/14 Status: Ordered lisinopril 5 mg oral tablet 5 mg 1 tabs, Oral, Daily, # 30 tabs, 11 Refill(s), Pharmacy: [facility] # [id number], 1 tabs Oral Daily Start Date: 04/04/15 Status: Ordered Miscellaneous DME DME Item Accu check Lindsay test strips. Test blood sugar one time daily for diabetes type 2. E11.9, See Instructions, # 100 Each, 3 Refill(s), Pharmacy: [facility] #[id number], Accu check Lindsay test strips. Test blood sugar one time daily for mark... Start Date: 01/25/15 Status: Ordered Miscellaneous DME DME Item Accu check Lindsay Lancets. Use to test blood sugar daily for diabetes type 2 E11.9, See Instructions, # 100 Each, 3 Refill(s), Pharmacy: [facility] #[id number], Accu check Lindsay Lancets. Use to test blood sugar daily for diabetes type 2 E11.... Start Date: 01/25/15 Status: Ordered RABEprazole 20 mg oral delayed release tablet 20 mg 1 tabs, Oral, Daily, # 60 tabs, 11 Refill(s), Pharmacy: [facility] # [id number], 1 tabs Oral Daily,x60 days Start Date: [...] Patient Education Author: Lex Lyons MD Date: Allergy Sinusitis Sinusitis is redness, soreness, and inflammation of the paranasal sinuses. Paranasal sinuses are air pockets within the bones of your face (beneath the eyes, the middle of the forehead, or above the eyes). In healthy paranasal sinuses, mucus is able to drain out, and air is able to circulate through them by way of your nose. However, when your paranasal sinuses are inflamed, mucus and air can become trapped. This can allow bacteria and other germs to grow and cause infection. Sinusitis can develop quickly and last only a short time (acute) or continue over a long period (chronic). Sinusitis that lasts for more than 12 weeks is considered chronic. CAUSES Causes of sinusitis include: Allergies. Structural abnormalities, such as displacement of the cartilage that separates your nostrils (deviated septum), which can decrease the air flow through your nose and sinuses and affect sinus drainage. Functional abnormalities, such as when the small hairs (cilia) that line your sinuses and help remove mucus do not work properly or are not present. SIGNS AND SYMPTOMS Symptoms of acute and chronic sinusitis are the same. The primary symptoms are pain and pressure around the affected sinuses. Other symptoms include: Upper toothache. Earache. Headache. Bad breath. Decreased sense of smell and taste. A cough, which worsens when you are lying flat. Fatigue. Fever. Thick drainage from your nose, which often is green and may contain pus ( purulent). Swelling and warmth over the affected sinuses. DIAGNOSIS Your health care provider will perform a physical exam. During the exam, your health care provider may: Look in your nose for signs of abnormal growths in your nostrils (nasal polyps). Tap over the affected sinus to check for signs of infection. View the inside of your sinuses (endoscopy) using an imaging device that has a light attached (endoscope). If your health care provider suspects that you have chronic sinusitis, one or more of the following tests may be recommended: Allergy tests. Nasal culture. A sample of mucus is taken from your nose, sent to a lab, and screened for bacteria. Nasal cytology. A sample of mucus is taken from your nose and examined by your health care provider to determine if your sinusitis is related to an allergy. TREATMENT Most cases of acute sinusitis are related to a viral infection and will resolve on their own within 10 days. Sometimes medicines are prescribed to help relieve symptoms (pain medicine, decongestants, nasal steroid sprays, or saline sprays) . However, for sinusitis related to a bacterial infection, your health care provider will prescribe antibiotic medicines. These are medicines that will help kill the bacteria causing the infection. Rarely, sinusitis is caused by a fungal infection. In theses cases, your health care provider will prescribe antifungal medicine. For some cases of chronic sinusitis, surgery is needed. Generally, these are cases in which sinusitis recurs more than 3 times per year, despite other treatments. HOME CARE INSTRUCTIONS Drink plenty of water. Water helps thin the mucus so your sinuses can drain more easily. Use a humidifier. Inhale steam 3 to 4 times a day (for example, sit in the bathroom with the shower running). Apply a warm, moist washcloth to your face 3 to 4 times a day, or as directed by your health care provider. Use saline nasal sprays to help moisten and clean your sinuses. Take medicines only as directed by your health care provider. If you were prescribed either an antibiotic or antifungal medicine, finish it all even if you start to feel better. SEEK IMMEDIATE MEDICAL CARE IF: You have increasing pain or severe headaches. You have nausea, vomiting, or drowsiness. You have swelling around your face. You have vision problems. You have a stiff neck. You have difficulty breathing. MAKE SURE YOU: Understand these instructions. Will watch your condition. Will get help right away if you are not doing well or get worse. Document Released: 03/30/2006 Document Revised: 08/14/2014 Document Reviewed: [facility] Patient Information 2015 [facility]. This information is not intended to replace advice given to you by your health care provider. Make sure you discuss any questions you have with your health care provider. Family Medicine Acute Bronchitis Bronchitis is inflammation of the airways that extend from the windpipe into the lungs (bronchi). The inflammation often causes mucus to develop. This leads to a cough, which is the most common symptom of bronchitis. In acute bronchitis, the condition usually develops suddenly and goes away over time, usually in a couple weeks. Smoking, allergies, and asthma can make bronchitis worse. Repeated episodes of bronchitis may cause further lung problems. CAUSES Acute bronchitis is most often caused by the same virus that causes a cold. The virus can spread from person to person (contagious) through coughing, sneezing, and touching contaminated objects. SIGNS AND SYMPTOMS Cough. Fever. Coughing up mucus. Body aches. Chest congestion. Chills. Shortness of breath. Sore throat. DIAGNOSIS Acute bronchitis is usually diagnosed through a physical exam. Your health care provider will also ask you questions about your medical history. Tests, such as chest X-rays, are sometimes done to rule out other conditions. TREATMENT Acute bronchitis usually goes away in a couple weeks. Oftentimes, no medical treatment is necessary. Medicines are sometimes given for relief of fever or cough. Antibiotic medicines are usually not needed but may be prescribed in certain situations. In some cases, an inhaler may be recommended to help reduce shortness of breath and control the cough. A cool mist vaporizer may also be used to help thin bronchial secretions and make it easier to clear the chest. HOME CARE INSTRUCTIONS Get plenty of rest. Drink enough fluids to keep your urine clear or pale yellow (unless you have a medical condition that requires fluid restriction). Increasing fluids may help thin your respiratory secretions (sputum) and reduce chest congestion, and it will prevent dehydration. Take medicines only as directed by your health care provider. If you were prescribed an antibiotic medicine, finish it all even if you start to feel better. Avoid smoking and secondhand smoke. Exposure to cigarette smoke or irritating chemicals will make bronchitis worse. If you are a smoker, consider using nicotine gum or skin patches to help control withdrawal symptoms. Quitting smoking will help your lungs heal faster. Reduce the chances of another bout of acute bronchitis by washing your hands frequently, avoiding people with cold symptoms, and trying not to touch your hands to your mouth, nose, or eyes. Keep all follow-up visits as directed by your health care provider. SEEK MEDICAL CARE IF: Your symptoms do not improve after 1 week of treatment. SEEK IMMEDIATE MEDICAL CARE IF: You develop an increased fever or chills. You have chest pain. You have severe shortness of breath. You have bloody sputum. You develop dehydration. You faint or repeatedly feel like you are going to pass out. You develop repeated vomiting. You develop a severe headache. MAKE SURE YOU: Understand these instructions. Will watch your condition. Will get help right away if you are not doing well or get worse. Document Released: 05/07/2005 Document Revised: 08/14/2014 Document Reviewed: [facility] Patient Information 2015 [facility]. This information is not intended to replace [...] Released: 03/27/2001 Document Revised: 11/30/2013 Document Reviewed: [facility] Patient Information 2015 [facility]. This information is not intended to replace advice given to you by your health care provider. Make sure you discuss any questions you have with your health care provider. Diabetes and Exercise Exercising regularly is important. [...] realistic goals. Your health care provider or health promotion educator can help you make an activity plan [...] 08/14/2014 Document Reviewed: [employer] Patient Information 2015 [employer]. This information is not intended to replace advice given to you by your health care provider. Make sure you discuss any questions you have with your health care provider. No follow up information was provided. Extracted from: Title: DM, HTN, bronchitis, Author: Lex Lyons MD Date: 04/04/15 sinusitis Impression and Plan Diagnosis Morbid obesity (NDJ00-YN E66.01, Working, Medical). Benign essential hypertension (EME24-NF I10, Working, Medical). Left anterior knee pain (RUJ50-WT M25.562, Working, Medical). Diet-controlled type 2 diabetes mellitus (OEH88-VW E11.9, Working, Medical). Monoclonal gammopathy (RWG41-SR D47.2, Working, Medical). Acute bronchitis (AMV77-YV J20.9, Working, Medical). Acute maxillary sinusitis (QRV56-KA J01.00, Working, Medical). Plan: 1) Reduce your Amlodipine to 1/2 pill daily. 2) Start Lisinopril: 1/2 tab daily for the first 6 days, then got to one tab daily. 3) Take the Azithromycin as directed. 4) May use Voltaren gel to the left knee 4 times daily as needed. 5) Use ice to the knee as needed. 6) Continue your other meds as before, but avoid Ibuprofen and Aleve. 7) Lab in 2 weeks. 8) See me in one month and as needed.. Orders Orders (Selected) Outpatient Orders Ordered Office Visit Level 4 Est 51178: Future (On Hold) BMP: Prescriptions Prescribed azithromycin 250 mg oral tablet: See Instructions, Take 2 tabs today, then 1 tab daily for 4 more days., 6 tabs, 0 Refill(s) lisinopril 5 mg oral tablet: 5 mg=1 tabs, Oral, Daily, 30 tabs, 11 Refill(s). Dx/Order Association Plan: Diagnosis: Acute bronchitis Comment: Ordered: Office Visit Level 4 Est 61911; 04/04/15 8:46:00 FARM EQUIPMENT ENGINEER, Acute maxillary sinusitis | Acute bronchitis | Diet-controlled type 2 diabetes mellitus | Benign essential hypertension Diagnosis: Acute maxillary sinusitis Comment: Ordered: Office Visit Level 4 Est 88971; 04/04/15 8:46:00 FARM EQUIPMENT ENGINEER, Acute maxillary sinusitis | Acute bronchitis | Diet-controlled type 2 diabetes mellitus | Benign essential hypertension Diagnosis: Benign essential hypertension Comment: Ordered: Office Visit Level 4 Est 03484; 04/04/15 8:46:00 FARM EQUIPMENT ENGINEER, Acute maxillary sinusitis | Acute bronchitis | Diet-controlled type 2 diabetes mellitus | Benign essential hypertension Diagnosis: Diet-controlled type 2 diabetes mellitus Comment: Ordered: Office Visit Level 4 Est 62221; 04/04/15 8:46:00 FARM EQUIPMENT ENGINEER, Acute maxillary sinusitis | Acute bronchitis | Diet-controlled type 2 diabetes mellitus | Benign essential hypertension Diagnosis: Left anterior knee pain Comment: Diagnosis: Monoclonal gammopathy Comment: Diagnosis: Morbid obesity Comment: Diagnosis: Benign essential hypertension Comment: Additional Orders: Comment: Ordered: azithromycin 250 mg oral tablet,See Instructions, Take 2 tabs today, then 1 tab daily for 4 more days., # 6 tabs, 0 Refill(s), Pharmacy: [facility] #[id number], Take 2 tabs today, then 1 tab daily for 4 more days. Ordered: lisinopril 5 mg oral tablet,5 mg 1 tabs, Oral, Daily, # 30 tabs, 11 Refill(s), Pharmacy: [facility] #[id number], 1 tabs Oral Daily End of Orders ."
--- OUTSIDE RECORDS SUMMARY | 2016-07-21 06:32 | XMS REPORT | Referral Summary ---
Author Author [facility] Organization [facility] Address Unknown Phone Unavailable Care Team Providers Care Medical Education Manager Name Role Phone Brijesh Lyons Primary Care Physician [phone] Encounter Date(s): 10/16/15 - 10/16/15 [facility], [facility] [address] [place] [address] Discharge Disposition: 01-Home or Self Care Attending Physician: Arsenio Torres MD Admitting Physician: Arsenio Torres MD Vital Signs No data available for [...] DAILY, # 30 tabs, 3 Refill(s), eRx: [facility] #[id number], TAKE ONE TABLET BY MOUTH DAILY Start Date: 07/19/15 Status: Ordered Aspirin Low Dose 81 mg, Oral, Daily, 0 Refill(s) Start Date: 07/30/15 Status: Ordered Benadryl See Instructions, Given IV prior to Rituxan, 0 Refill(s) Start Date: 10/16/15 Status: Ordered bisoprolol 5 mg oral tablet 2.5 mg 0.5 tabs, Oral, Daily, # 45 tabs, 6 Refill(s), Pharmacy: [facility] #[id number], 0.5 tabs Oral Daily Start Date: 05/02/15 Status: Ordered levothyroxine 25 mcg (0.025 mg) oral tablet 25 mcg 1 tabs, Oral, Daily, # 30 tabs, 11 Refill(s), Pharmacy: [facility] #[id number], 1 tabs Oral Daily Start Date: 11/16/14 Status: Ordered Miscellaneous DME DME Item Accu check Lindsay test strips. Test blood sugar one time daily for diabetes type 2. E11.9, See Instructions, # 100 Each, 3 Refill(s), Pharmacy: [facility] #[id number], Accu check Lindsay test strips. Test blood sugar one time daily for mark... Start Date: 01/25/15 Status: Ordered Miscellaneous DME DME Item Accu check Lindsay Lancets. Use to test blood sugar daily for diabetes type 2 E11.9, See Instructions, # 100 Each, 3 Refill(s), Pharmacy: [facility] #[id number], Accu check Lindsay Lancets. Use to test [...] smoker Assessment and Plan Extracted from: Title: CPAP SUPPLY Author: Lanny Zabala FIRE EXTINGUISHER MECHANIC Date: 10/16/15 P10:sekou Ambrose
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
--- OUTSIDE RECORDS SUMMARY | 2016-07-21 06:32 | XMS REPORT | Referral Summary ---
Author Author [facility] Organization [facility] Address Unknown Phone Unavailable Care Team Providers Care Human Services Assistant Name Role Phone Brijesh Lyons Primary Care Physician [phone] Encounter Date(s): 08/15/15 - 08/15/15 [facility], [facility] [address] [place] [address] Discharge Disposition: 01-Home or Self Care Attending Physician: Arsenio Torres MD Admitting Physician: Arsenio Torres MD Referring Physician: Arsenio Torres MD Vital Signs No [...] DAILY, # 30 tabs, 3 Refill(s), eRx: [facility] #[id number], TAKE ONE TABLET BY MOUTH DAILY Start Date: 07/19/15 Status: Ordered Aspirin Low Dose 81 mg, Oral, Daily, 0 Refill(s) Start Date: 07/30/15 Status: Ordered bisoprolol 5 mg oral tablet 2.5 mg 0.5 tabs, Oral, Daily, # 45 tabs, 6 Refill(s), Pharmacy: [facility] #[id number], 0.5 tabs Oral Daily Start Date: 05/02/15 Status: Ordered levothyroxine 25 mcg (0.025 mg) oral tablet 25 mcg 1 tabs, Oral, Daily, # 30 tabs, 11 Refill(s), Pharmacy: [facility] #[id number], 1 tabs Oral Daily Start Date: 11/16/14 Status: Ordered Miscellaneous DME DME Item Accu check Lindsay test strips. Test blood sugar one time daily for diabetes type 2. E11.9, See Instructions, # 100 Each, 3 Refill(s), Pharmacy: [facility] #[id number], Accu check Lindsay test strips. Test blood sugar one time daily for mark... Start Date: 01/25/15 Status: Ordered Miscellaneous DME DME Item Accu check Lindsay Lancets. Use to test blood sugar daily for diabetes type 2 E11.9, See Instructions, # 100 Each, 3 Refill(s), Pharmacy: [facility] #[id number], Accu check Lindsay Lancets. Use to test [...] Assessment and Plan Extracted from: Title: CPAP SET UP Author: Lanny Zabala FRAME STRIPPER Date: 08/15/15 Initial set up 9cmH20, Airsense 10, humidifier, slimline, simplus:M, headgear, S10 filters purchase Dr Torres
--- OUTSIDE RECORDS SUMMARY | 2016-07-21 06:32 | XMS REPORT | Referral Summary ---
Author Author [facility] Organization [facility] Address Unknown Phone Unavailable Care Team Providers Care Coil Assembler Name Role Phone Brijesh Lyons Primary Care Physician [phone] Encounter [facility] Date(s): 05/26/16 - 05/26/16 [facility] [address] [place] [address] [place] [address] - Discharge Diagnosis: Bilateral sensorineural hearing loss Discharge Disposition: 01-Home or Self Care Attending Physician: Robbie Doshi MD Admitting Physician: Robbie Doshi MD Vital Signs No data available for [...] DAILY, # 30 tabs, 5 Refill(s), eRx: [facility] #[id number], TAKE ONE TABLET BY MOUTH DAILY Start Date: 02/21/16 Status: Ordered Aspirin Low Dose 81 mg, Oral, Daily, 0 Refill(s) Start Date: 07/30/15 Status: Ordered bisoprolol 5 mg oral tablet 2.5 mg 0.5 tabs, Oral, Daily, # 45 tabs, 6 Refill(s), Pharmacy: [facility] #[id number], 0.5 tabs Oral Daily Start Date: 05/02/15 Status: Ordered cyclobenzaprine 10 mg oral tablet 10 mg 1 tabs, Oral, TID, as needed for spasm, # 30 tabs, 0 Refill(s) Start Date: 03/14/16 Status: Ordered levothyroxine 25 mcg (0.025 mg) oral tablet See Instructions, TAKE ONE TABLET BY MOUTH DAILY, # 30 tabs, 11 Refill(s), eRx: [facility] #[id number], TAKE ONE TABLET BY MOUTH DAILY Start Date: 11/08/15 Status: Ordered metFORMIN 500 mg oral tablet, extended release See Instructions, 1 tablet oral with supper for 1 week and then 2 with supper daily, # 60 Each, 11 Refill(s), Pharmacy: [facility] #[id number], 1 tablet oral with supper for 1 week and then 2 with supper daily Start Date: 11/02/15 Status: Ordered Miscellaneous DME DME Item Accu check Lindsay test strips. Test blood sugar one time daily for diabetes type 2. E11.9, See Instructions, # 100 Each, 3 Refill(s), Pharmacy: [facility] #[id number], Accu check Lindsay test strips. Test blood sugar one time daily for mark... Start Date: 01/25/15 Status: Ordered Miscellaneous DME DME Item Accu check Lindsay Lancets. Use to test blood sugar daily for diabetes type 2 E11.9, See Instructions, # 100 Each, 3 Refill(s), Pharmacy: [facility] #[id number], Accu check Lindsay Lancets. Use to test [...] Daily, # 30 tabs, 9 Refill(s), Pharmacy: [facility] # [id number], 1 tabs Oral Daily Start Date: 04/23/16 [...] Chest pain4 1999 Nasal endoscopy with nasal polypectomy1997 Caesarean delivery following previous 1990 caesarean6 Umbilical [...]
--- OUTSIDE RECORDS SUMMARY | 2016-07-21 06:32 | XMS REPORT | Referral Summary ---
Author Author [facility], Family Medicine Organization [facility] Address Unknown Phone Unavailable Care Team Providers Care Account Manager Employee Benefits Name Role Phone Brijesh Lyons Primary Care Physician [phone] Encounter VC Date(s): 11/17/14 - 11/17/14 [facility], [address] [place] [address]- Discharge Disposition: 01-Home or Self Care Attending Physician: Lex Lyons MD Admitting Physician: Lex Lyons MD Vital Signs Most recent to 1 oldest [Reference Range]: Temperature Tympanic 36.1 degC [36.6-38.1 degC] *LOW* (11/17/14 3:40 PM) Peripheral Pulse 93 bpm Rate [60-100 bpm] (11/17/14 3:40 PM) Respiratory Rate 18 br/min [14-20 br/min] (11/17/14 3:40 PM) Blood Pressure 201/84 mmHg [90-140/60-90 mmHg] *HI* (11/17/14 3:40 PM) SpO2 96 % (11/17/14 3:40 PM) Problem List Condition Effective Dates Status [...] Daily, # 30 tabs, 1 Refill(s), Pharmacy: [facility] # [id number], 1 tabs Oral Daily Start Date: 05/25/15 Status: Ordered bisoprolol 5 mg oral tablet 2.5 mg 0.5 tabs, Oral, Daily, # 45 tabs, 6 Refill(s), Pharmacy: [facility] #[id number], 0.5 tabs Oral Daily Start Date: 05/02/15 Status: Ordered levothyroxine 25 mcg (0.025 mg) oral tablet 25 mcg 1 tabs, Oral, Daily, # 30 tabs, 11 Refill(s), Pharmacy: [facility] #[id number], 1 tabs Oral Daily Start Date: 11/16/14 Status: Ordered Miscellaneous DME DME Item Accu check Lindsay test strips. Test blood sugar one time daily for diabetes type 2. E11.9, See Instructions, # 100 Each, 3 Refill(s), Pharmacy: [facility] #[id number], Accu check Lindsay test strips. Test blood sugar one time daily for mark... Start Date: 01/25/15 Status: Ordered Miscellaneous DME DME Item Accu check Lindsay Lancets. Use to test blood sugar daily for diabetes type 2 E11.9, See Instructions, # 100 Each, 3 Refill(s), Pharmacy: [facility] #[id number], Accu check Lindsay Lancets. Use to test blood sugar daily for diabetes type 2 E11.... Start Date: 01/25/15 Status: Ordered RABEprazole 20 mg oral delayed release tablet 20 mg 1 tabs, Oral, Daily, # 60 tabs, 11 Refill(s), Pharmacy: [facility] # [id number], 1 tabs Oral Daily,x60 days Start Date: [...] Author: Lex Lyons MD Date: Family Medicine Chest Pain Observation It is often hard to give a specific diagnosis for the cause of chest pain. Among other possibilities your symptoms might be caused by inadequate oxygen delivery to your heart (angina). Angina that is not treated or evaluated can lead to a heart attack (myocardial infarction) or . Blood tests, electrocardiograms, and X-rays may have been done to help determine a possible cause of your chest pain. After evaluation and observation , your health care provider has determined that it is unlikely your pain was caused by an unstable condition that requires hospitalization. However, a full evaluation of your pain may need to be completed, with additional diagnostic testing as directed. It is very important to keep your follow-up appointments. Not keeping your follow-up appointments could result in permanent heart damage, disability, or . If there is any problem keeping your follow-up appointments, you must call your health care provider. HOME CARE INSTRUCTIONS Due to the slight chance that your pain could be angina, it is important to follow your health care provider's treatment plan and also maintain a healthy lifestyle: Maintain or work toward achieving a healthy weight. Stay physically active and exercise regularly. Decrease your salt intake. Eat a balanced, healthy diet. Talk to a dietitian to learn about heart- healthy foods. Increase your fiber intake by including whole grains, vegetables, fruits, and nuts in your diet. Avoid situations that cause stress, anger, or depression. Take medicines as advised by your health care provider. Report any side effects to your health care provider. Do not stop medicines or adjust the dosages on your own. Quit smoking. Do not use nicotine patches or gum until you check with your health care provider. Keep your blood pressure, blood sugar, and cholesterol levels within normal limits. Limit alcohol intake to no more than 1 drink per day for women who are not and 2 drinks per day for men. Do not abuse drugs. SEEK IMMEDIATE MEDICAL CARE IF: You have severe chest pain or pressure which may include symptoms such as: You feel pain or pressure in your arms, neck, jaw, or back. You have severe back or abdominal pain, feel sick to your stomach (nauseous ), or throw up (vomit). You are sweating profusely. You are having a fast or irregular heartbeat. You feel short of breath while at rest. You notice increasing shortness of breath during rest, sleep, or with activity. You have chest pain that does not get better after rest or after taking your usual medicine. You wake from sleep with chest pain. You are unable to sleep because you cannot breathe. You develop a frequent cough or you are coughing up blood. You feel dizzy, faint, or experience extreme fatigue. You develop severe weakness, dizziness, fainting, or chills. Any of these symptoms may represent a serious problem that is an emergency. Do not wait to see if the symptoms will go away. Call your local emergency services (911 in the [place] Do not drive yourself to the hospital. MAKE SURE YOU: Understand these instructions. Will watch your condition. Will get help right away if you are not doing well or get worse. Document Released: 05/02/2011 Document Revised: 04/04/2014 Document Reviewed: [employer] Patient Information 2015 [employer]. This information is not intended to replace advice given to you by your health care provider. Make sure you discuss any questions you have with your health care provider. No follow up information was provided. Extracted from: Title: chest pain, PVCs, HTN Author: Lex Lyons MD Date: 11/17/14 Impression and Plan Diagnosis Acute chest pain (ICD9 786.50, Working, Medical). Asymptomatic PVCs (ICD9 427.69, Working, Medical). Benign essential hypertension (ICD9 401.1, Working, Medical). Morbid obesity (ICD9 278.01, Working, Medical). Neck pain (ICD9 723.1, Working, Medical). Plan: Troponin I and Magnesium levels were checked at the hospital today, and were normal. Start the Triamterene HCTZ daily for hypertension. Stop the Tramadol. Recheck in 4-6 weeks in the office and as needed. , No change to your other meds.. Orders Orders (Selected) Outpatient Orders Future (On Hold) Hgb A1c: Mammogram Routine Screening Bilat: TSH 3rd Generation: Prescriptions Prescribed triamterene-hydrochlorothiazide 37.5 mg-25 mg oral tablet: 1 tabs, Oral, Daily, for 30 days, 30 tabs, 11 Refill(s). Dx/Order Association Plan: Diagnosis: Acute chest pain Comment: Diagnosis: Asymptomatic PVCs Comment: Diagnosis: Benign essential hypertension Comment: Diagnosis: Morbid obesity Comment: Diagnosis: Neck pain Comment: Additional Orders: Comment: Ordered: triamterene-hydrochlorothiazide 37.5 mg-25 mg oral tablet, 1 tabs, Oral, Daily, # 30 tabs, 11 Refill(s), Pharmacy: [facility] #[id number] .
--- OUTSIDE RECORDS SUMMARY | 2016-07-21 06:32 | XMS REPORT | Referral Summary ---
Author Author [facility] Organization [facility] Address Unknown Phone Unavailable Care Team Providers Care Manager Packaging Name Role Phone Brijesh Lyons Primary Care Physician [phone] Encounter [facility] Date(s): 11/15/14 - 11/15/14 [facility], [address] [place] [address]- Discharge Diagnosis: Abnormal laboratory test result Discharge Disposition: 01-Home or Self Care Attending Physician: Lex Lyons MD Admitting Physician: Lex Lyons MD Vital Signs Most recent to 1 oldest [Reference Range]: Temperature Tympanic 37 degC [36.6-38.1 degC] (11/15/14 7:29 AM) Peripheral Pulse 84 bpm Rate [60-100 bpm] (11/15/14 7:29 AM) Respiratory Rate 18 br/min [14-20 br/min] (11/15/14 7:29 AM) Blood Pressure 100/64 mmHg [90-140/60-90 mmHg] (11/15/14 7:29 AM) Problem List Condition Effective Dates Status [...] Daily, # 30 tabs, 1 Refill(s), Pharmacy: [facility] # [id number], 1 tabs Oral Daily Start Date: 05/25/15 Status: Ordered bisoprolol 5 mg oral tablet 2.5 mg 0.5 tabs, Oral, Daily, # 45 tabs, 6 Refill(s), Pharmacy: [facility] #[id number], 0.5 tabs Oral Daily Start Date: 05/02/15 Status: Ordered levothyroxine 25 mcg (0.025 mg) oral tablet 25 mcg 1 tabs, Oral, Daily, # 30 tabs, 11 Refill(s), Pharmacy: [facility] #[id number], 1 tabs Oral Daily Start Date: 11/16/14 Status: Ordered Miscellaneous DME DME Item Accu check Lindsay test strips. Test blood sugar one time daily for diabetes type 2. E11.9, See Instructions, # 100 Each, 3 Refill(s), Pharmacy: [facility] #[id number], Accu check Lindsay test strips. Test blood sugar one time daily for mark... Start Date: 01/25/15 Status: Ordered Miscellaneous DME DME Item Accu check Lindsay Lancets. Use to test blood sugar daily for diabetes type 2 E11.9, See Instructions, # 100 Each, 3 Refill(s), Pharmacy: [facility] #[id number], Accu check Lindsay Lancets. Use to test blood sugar daily for diabetes type 2 E11.... Start Date: 01/25/15 Status: Ordered RABEprazole 20 mg oral delayed release tablet 20 mg 1 tabs, Oral, Daily, # 60 tabs, 11 Refill(s), Pharmacy: [facility] # [id number], 1 tabs Oral Daily,x60 days Start Date: 11/15/14 Stop Date: 11/04/16 Status: Ordered Tylenol Regular Strength mg, Oral, q4hr, 0 Refill(s) Start Date: 04/04/15 Status: Ordered Vitamin D3 2000 IU, Oral, Daily, 0 Refill(s) Start Date: 09/14/13 Status: Ordered Results Hematology Most recent to 1 oldest [Reference Range]: WBC [4.8-10.8 6.0 10*3/uL 10*3/uL] (11/15/14 8:38 AM) RBC [4.00-5.20 4.91 10*6/uL 10*6/uL] (11/15/14 8:38 AM) Hgb [12.0-16.0 13.3 gm/dL gm/dL] (11/15/14 8:38 AM) Hct [37.0-47.0 %] 39.4 % (11/15/14 8:38 AM) MCV [82.0-99.0 fL] 80.2 fL *LOW* (11/15/14 8:38 AM) MCH [27.0-32.0 pg] 27.1 pg (11/15/14 8:38 AM) MCHC [32.0-36.0 33.8 gm/dL gm/dL] (11/15/14 8:38 AM) RDW [11.5-14.5 %] 14.3 % (11/15/14 8:38 AM) Platelet [150-400 196 10*3/uL 10*3/uL] (11/15/14 8:38 AM) MPV [8.8-14.8 fL] 11.2 fL (11/15/14 8:38 AM) Immature 0.2 % Granulocytes (11/15/14 8:38 AM) [0.0-1.0 %] Neutrophils [51-75 73 % %] (11/15/14 8:38 AM) Lymphocytes [20-46 16 % %] *LOW* (11/15/14 8:38 AM) Monocytes [4-11 %] 8 % (11/15/14 8:38 AM) Eosinophils [0-4 %] 3 % (11/15/14 8:38 AM) Basophils [0-2 %] 1 % (11/15/14 8:38 AM) Neutro Absolute 4.39 10*3 [1.90-7.00 10*3] (11/15/14 8:38 AM) Lymph Absolute 0.93 10*3 [0.80-3.30 10*3] (11/15/14 8:38 AM) [place] Absolute 0.45 10*3 [0.30-1.00 10*3] (11/15/14 8:38 AM) Eos Absolute 0.19 10*3 [0.00-0.50 10*3] (11/15/14 8:38 AM) Baso Absolute 0.03 10*3 [0.00-0.20 10*3] (11/15/14 8:38 AM) Chemistry Most recent to 1 oldest [Reference Range]: Sodium Lvl [135-144 142 mEq/L mEq/L] (11/15/14 8:38 AM) Potassium Lvl 4.6 mEq/L [3.5-5.2 mEq/L] (11/15/14 8:38 AM) Chloride [99-111 105 mEq/L mEq/L] (11/15/14 8:38 AM) CO2 [22-31 mEq/L] 27 mEq/L (11/15/14 8:38 AM) AGAP [3-20] 10 (11/15/14 8:38 AM) BUN [10-20 mg/dL] 18 mg/dL (11/15/14 8:38 AM) Glucose Lvl [70-99 123 mg/dL mg/dL] *HI* (11/15/14 8:38 AM) Creatinine Lvl 1.00 mg/dL [0.57-1.11 mg/dL] (11/15/14 8:38 AM) eGFR [>60 mL/min] 56 mL/min 1 *ABN* (11/15/14 8:38 AM) Calcium Lvl 9.5 mg/dL [8.9-10.5 mg/dL] (11/15/14 8:38 AM) Albumin Lvl [3.4-4.8 3.9 gm/dL gm/dL] (11/15/14 8:38 AM) Total Protein 7.7 gm/dL [6.2-8.1 gm/dL] (11/15/14 8:38 AM) Globulin [1.8-4.0 3.8 gm/dL gm/dL] (11/15/14 8:38 AM) ALT [0-55 U/L] 15 U/L (11/15/14 8:38 AM) AST [5-34 U/L] 15 U/L (11/15/14 8:38 AM) Alk Phos [40-150 61 U/L U/L] (11/15/14 8:38 AM) Bili Total [0.2-1.2 0.9 mg/dL mg/dL] (11/15/14 8:38 AM) Chol [0-199 mg/dL] 110 mg/dL (11/15/14 8:38 AM) Trig [0-149 mg/dL] 127 mg/dL (11/15/14 8:38 AM) HDL [40-84 mg/dL] 31 mg/dL *LOW* (11/15/14 8:38 AM) LDL [0-130 mg/dL] 54 mg/dL (11/15/14 8:38 AM) VLDL Cholesterol 25 mg/dL [0-28 mg/dL] (11/15/14 8:38 AM) Cardiac Risk 3.5 [0.0-5.0] (11/15/14 8:38 AM) TSH [0.35-4.94] 7.06 *HI* (11/15/14 8:38 AM) 1Result Comment: Multiply eGFR results by 1.21 for race. Immunizations Vaccine Date Refusal Reason tetanus/diphth/pertuss (Tdap) adult/adol 09/29/05 hepatitis A adult vaccine 11/15/14 influenza virus vaccine, inactivated 02/08/15 Procedures Procedure Date Related Diagnosis Body Site Biopsy Bone Marrow1 02/23/15 Procedure with Anesthesia2 02/23/15 Collection of venous blood by venipuncture 11/15/14 Colonoscopy3 2009 Esophagogastroduodenoscopy 2009 Esophagogastroduodenoscopy 2003 Chest pain4 1999 Nasal endoscopy with nasal polypectomy5 1997 Caesarean delivery following previous 1990 caesarean6 Umbilical herniorrhaphy 1985 Cholecystectomy 1974 Tonsillectomy 1969 SVD7 1auto-populated from documented surgical case 2auto-populated from documented surgical case 3normal, repeat in 10 years 4Hospitalized for chest pain and acid reflux 5sinus surgery 6only one 72 SVDs Social History Social History Type Response Smoking Status Never smoker Assessment and Plan Extracted from: Title: Ambulatory Patient Education Author: Lex Lyons MD Date: Family Medicine Health Maintenance, Female A healthy lifestyle and preventative care can promote health and wellness. Maintain regular health, dental, and eye exams. Eat a healthy diet. Foods like vegetables, fruits, whole grains, low-fat dairy products, and lean protein foods contain the nutrients you need without too many calories. Decrease your intake of foods high in solid fats, added sugars, and salt. Get information about a proper diet from your caregiver, if necessary. Regular physical exercise is one of the most important things you can do for your health. Most adults should get at least 150 minutes of moderate- intensity exercise (any activity that increases your heart rate and causes you to sweat) each week. In addition, most adults need muscle-strengthening exercises on 2 or more days a week. Maintain a healthy weight. The body mass index (BMI) is a screening tool to identify possible weight problems. It provides an estimate of body fat based on height and weight. Your caregiver can help determine your BMI, and can help you achieve or maintain a healthy weight. For adults 20 years and older: A BMI below 18.5 is considered underweight. A BMI of 18.5 to 24.9 is normal. A BMI of 25 to 29.9 is considered overweight. A BMI of 30 and above is considered obese. Maintain normal blood lipids and cholesterol by exercising and minimizing your intake of saturated fat. Eat a balanced diet with plenty of fruits and vegetables. Blood tests for lipids and cholesterol should begin at age 20 and be repeated every 5 years. If your lipid or cholesterol levels are high, you are over 50, or you are a high risk for heart disease, you may need your cholesterol levels checked more frequently.Ongoing high lipid and cholesterol levels should be treated with medicines if diet and exercise are not effective. If you smoke, find out from your caregiver how to quit. If you do not use tobacco, do not start. Lung cancer screening is recommended for adults aged 5580 years who are at high risk for developing lung cancer because of a history of smoking. Yearly low-dose computed tomography (CT) is recommended for people who have at least a [id number] history of smoking and are a current smoker or have quit within the past 15 years. A pack year of smoking is smoking an average of 1 pack of cigarettes a day for 1 year (for example: 1 pack a day for 30 years or 2 packs a day for 15 years). Yearly screening should continue until the smoker has stopped smoking for at least 15 years. Yearly screening should also be stopped for people who develop a health problem that would prevent them from having lung cancer treatment. If you are , do not drink alcohol. If you are , be very cautious about drinking alcohol. If you are not and choose to drink alcohol, do not exceed 1 drink per day. One drink is considered to be 12 ounces (355 mL) of beer, 5 ounces (148 mL) of wine, or 1.5 ounces (44 mL) of liquor. Avoid use of street drugs. Do not share needles with anyone. Ask for help if you need support or instructions about stopping the use of drugs. High blood pressure causes heart disease and increases the risk of stroke. Blood pressure should be checked at least every 1 to 2 years. Ongoing high blood pressure should be treated with medicines, if weight loss and exercise are not effective. If you are 55 to 79 years old, ask your caregiver if you should take aspirin to prevent strokes. Diabetes screening involves taking a blood sample to check your fasting blood sugar level. This should be done once every 3 years, after age 45, if you are within normal weight and without risk factors for diabetes. Testing should be considered at a younger age or be carried out more frequently if you are overweight and have at least 1 risk factor for diabetes. Breast cancer screening is essential preventative care for women. You should practice "breast self-awareness." This means understanding the normal appearance and feel of your breasts and may include breast self-examination. Any changes detected, no matter how small, should be reported to a caregiver. Women in their 20s and 30s should have a clinical breast exam (CBE) by a caregiver as part of a regular health exam every 1 to 3 years. After age 40, women should have a CBE every year. Starting at age 40, women should consider having a mammogram (breast X-ray) every year. Women who have a family history of breast cancer should talk to their caregiver about genetic screening. Women at a high risk of breast cancer should talk to their caregiver about having an MRI and a mammogram every year. Breast cancer gene (BRCA)-related cancer risk assessment is recommended for women who have family members with BRCA-related cancers. BRCA-related cancers include breast, ovarian, tubal, and peritoneal cancers. Having family members with these cancers may be associated with an increased risk for harmful changes (mutations) in the breast cancer genes BRCA1 and BRCA2. Results of the assessment will determine the need for genetic counseling and BRCA1 and BRCA2 testing. The Pap test is a screening test for cervical cancer. Women should have a Pap test starting at age 21. Between ages 21 and 29, Pap tests should be repeated every 2 years. Beginning at age 30, you should have a Pap test every 3 years as long as the past 3 Pap tests have been normal. If you had a hysterectomy for a problem that was not cancer or a condition that could lead to cancer, then you no longer need Pap tests. If you are between ages 65 and 70 , and you have had normal Pap tests going back 10 years, you no longer need Pap tests. If you have had past treatment for cervical cancer or a condition that could lead to cancer, you need Pap tests and screening for cancer for at least 20 years after your treatment. If Pap tests have been discontinued, risk factors (such as a new sexual partner) need to be reassessed to determine if screening should be resumed. Some women have medical problems that increase the chance of getting cervical cancer. In these cases, your caregiver may recommend more frequent screening and Pap tests. The human papillomavirus (HPV) test is an additional test that may be used for cervical cancer screening. The HPV test looks for the virus that can cause the cell changes on the cervix. The cells collected during the Pap test can be tested for HPV. The HPV test could be used to screen women aged 30 years and older, and should be used in women of any age who have unclear Pap test results. After the age of 30, women should have HPV testing at the same frequency as a Pap test. Colorectal cancer can be detected and often prevented. Most routine colorectal cancer screening begins at the age of 50 and continues through age 75. However, your caregiver may recommend screening at an earlier age if you have risk factors for colon cancer. On a yearly basis, your caregiver may provide home test kits to check for hidden blood in the stool. Use of a small camera at the end of a tube, to directly examine the colon (sigmoidoscopy or colonoscopy), can detect the earliest forms of colorectal cancer. Talk to your caregiver about this at age 50, when routine screening begins. Direct examination of the colon should be repeated every 5 to 10 years through age 75, unless early forms of pre-cancerous polyps or small growths are found. Hepatitis C blood testing is recommended for all people born from 1945 through 1965 and any individual with known risks for hepatitis C. Practice safe sex. Use condoms and avoid high-risk sexual practices to reduce the spread of sexually transmitted infections (STIs). Sexually active women aged 25 and younger should be checked for Chlamydia, which is a common sexually transmitted infection. Older women with new or multiple partners should also be tested for Chlamydia. Testing for other STIs is recommended if you are sexually active and at increased risk. Osteoporosis is a disease in which the bones lose minerals and strength with aging. This can result in serious bone fractures. The risk of osteoporosis can be identified using a bone density scan. Women ages 65 and over and women at risk for fractures or osteoporosis should discuss screening with their caregivers. Ask your caregiver whether you should be taking a calcium supplement or vitamin D to reduce the rate of osteoporosis. Menopause can be associated with physical symptoms and risks. Hormone replacement therapy is available to decrease symptoms and risks. You should talk to your caregiver about whether hormone replacement therapy is right for you. Use sunscreen. Apply sunscreen liberally and repeatedly throughout the day. You should seek shade when your shadow is shorter than you. Protect yourself by wearing long sleeves, pants, a wide-brimmed hat, and sunglasses year round, whenever you are outdoors. Notify your caregiver of new moles or changes in moles, especially if there is a change in shape or color. Also notify your caregiver if a mole is larger than the size of a pencil eraser. Stay current with your immunizations. Document Released: 10/13/2011 Document Revised: 07/25/2013 Document Reviewed: [facility] Patient Information 2015 [facility]. This information is not intended to replace advice given to you by your health care provider. Make sure you discuss any questions you have with your health care provider. No follow up information was provided. Extracted from: Title: Female Physical Author: Lex Lyons MD Date: 11/15/14 Impression and Plan Diagnosis GERD (gastroesophageal reflux disease) (ICD9 530.81, Working, Medical). Impaired fasting blood sugar (ICD9 790.21, Working, Medical). Left anterior knee pain (ICD9 719.46, Working, Medical). Morbid obesity (ICD9 278.01, Working, Medical). Need for hepatitis A vaccination (ICD9 V05.3, Working, Medical). Visit for screening mammogram (ICD9 V76.12, Working, Medical). Well adult exam (ICD9 V70.0, Working, Medical). Plan: Healthy diet, daily exercise and weight loss recommended. Hepatitis A # 1 given today. You can get the second one after 6 months. Schedule mammograms at the lab desk. Fasting lab today. May take Tramadol as needed for knee pain. Followup in one year and as needed. . Orders Orders (Selected) Outpatient Orders Ordered Periodic Comp Preventive Med 40 to 64 years Est 08987: hepatitis A adult vaccine 1440 units/mL preservative free intramuscular suspension: 1 mL, IntraMuscular, Once Future (On Hold) CBC w/ Differential: CMP: Fasting Lipid Profile: Mammogram Routine Screening Bilat: Routine Urinalysis: TSH 3rd Generation: Prescriptions Prescribed RABEprazole 20 mg oral delayed release tablet: 20 mg=1 tabs, Oral, Daily, for 60 days, 60 tabs, 11 Refill(s) traMADol 50 mg oral tablet: 50 mg=1 tabs, Oral, q4hr, for 30 days, PRN: as needed for pain, 180 tabs, 5 Refill(s).
--- OUTSIDE RECORDS SUMMARY | 2016-07-21 06:32 | XMS REPORT | Referral Summary ---
Author Author [facility] Ot[facility] Organization [facility] Address Unknown Phone Unavailable Care Team Providers Care Hammer Repairer Name Role Phone Brijesh Lyons Primary Care Physician [phone] Encounter [facility] [id number] Date(s): 11/21/15 - 11/21/15 [facility] [address] [place] [address] Discharge Diagnosis: Chronic ethmoidal sinusitis Discharge Diagnosis: GILDA on CPAP Discharge Diagnosis: Nasal valve collapse Discharge Disposition: 01-Home or Self Care Attending [...] eyes 3Elevated Blood Pressure and Hypertension Medications allopurinol 300 mg, Daily Start Date: 10/23/15 Status: Ordered amLODIPine 5 mg oral tablet See Instructions, TAKE ONE TABLET BY MOUTH DAILY, # 30 tabs, 3 Refill(s), eRx: [facility] #[id number], TAKE ONE TABLET BY MOUTH DAILY Start Date: 07/19/15 Status: Ordered Aspirin Low Dose 81 mg, Oral, Daily, 0 Refill(s) Start Date: 07/30/15 Status: Ordered bisoprolol 5 mg oral tablet 2.5 mg 0.5 tabs, Oral, Daily, # 45 tabs, 6 Refill(s), Pharmacy: [facility] #[id number], 0.5 tabs Oral Daily Start Date: 05/02/15 Status: Ordered doxycycline hyclate 100 mg oral tablet 100 mg 1 tabs, Oral, BID, X 30 days, # 60 tabs, 0 Refill(s), Pharmacy: [facility] #[id number], 1 tabs Oral BID,x30 days Start Date: 10/23/15 Stop Date: 11/22/15 Status: Ordered levothyroxine 25 mcg (0.025 mg) oral tablet See Instructions, TAKE ONE TABLET BY MOUTH DAILY, # 30 tabs, 11 Refill(s), eRx: [facility] #[id number], TAKE ONE TABLET BY MOUTH DAILY Start Date: 11/08/15 Status: Ordered metFORMIN 500 mg oral tablet, extended release See Instructions, 1 tablet oral with supper for 1 week and then 2 with supper daily, # 60 Each, 11 Refill(s), Pharmacy: [facility] #[id number], 1 tablet oral with supper for 1 week and then 2 with supper daily Start Date: 11/02/15 Status: Ordered Miscellaneous DME DME Item Accu check Lindsay test strips. Test blood sugar one time daily for diabetes type 2. E11.9, See Instructions, # 100 Each, 3 Refill(s), Pharmacy: [facility] #[id number], Accu check Lindsay test strips. Test blood sugar one time daily for mark... Start Date: 01/25/15 Status: Ordered Miscellaneous DME DME Item Accu check Lindsay Lancets. Use to test blood sugar daily for diabetes type 2 E11.9, See Instructions, # 100 Each, 3 Refill(s), Pharmacy: [facility] #[id number], Accu check Lindsay Lancets. Use to test [...] Extracted from: Title: Ambulatory Patient Education Author: Robbie Doshi MD Date: 01/26 Sinusitis, Adult Sinusitis is redness, soreness, and inflammation of the paranasal sinuses. Paranasal sinuses are air pockets within the bones of your face. They are located beneath your eyes, in the middle of your forehead, and above your eyes. In healthy paranasal sinuses, mucus is able [...] provider will perform a physical exam. During your exam, your health care provider may perform any of the following to help determine if you have acute sinusitis or chronic sinusitis: Look in your nose for signs of abnormal growths in your nostrils (nasal polyps). Tap over the affected sinus to check for signs of infection. View the inside of your sinuses using an imaging device that has a [...] resolve on their own within 10 days. Sometimes, medicines are prescribed to help relieve symptoms of both acute and chronic sinusitis. These may include pain medicines, decongestants, nasal steroid sprays, or saline sprays. However, for sinusitis related to a bacterial infection, your health care provider will prescribe antibiotic medicines. These are medicines that will help kill the bacteria causing the infection. Rarely, sinusitis is caused by a fungal infection. In these cases, your health care provider will prescribe antifungal medicine. For some cases of chronic sinusitis, surgery is needed. Generally, these are cases in which sinusitis recurs more than 3 times per year, despite other treatments. HOME CARE INSTRUCTIONS Drink plenty of water. Water helps thin the mucus so your sinuses can drain more easily. Use a humidifier. Inhale steam 34 times a day (for example, sit in the bathroom with the shower running). Apply a warm, moist washcloth to your face 34 times a day, or as directed by [...] a stiff neck. You have difficulty breathing. This information is not intended to replace advice given to you by your health care provider. Make sure you discuss any questions you have with your health care provider. Document Released: 03/30/2006 Document Revised: 04/20/2015 Document Reviewed: [employer] Patient Information 2016 [email or web address], [facility]. No follow up information was provided.
--- OUTSIDE RECORDS SUMMARY | 2016-07-21 06:32 | XMS REPORT | Referral Summary ---
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 Name Role Phone Brijesh Lyons Primary Care Physician [phone] Encounter VC Date(s): 02/08/15 - 02/08/15 [facility], [address] [place] [address] Discharge Disposition: [...] # 30 tabs, 11 Refill(s), Pharmacy: [facility] # [id number], 1 tabs Oral Daily Start Date: 02/08/15 Status: Ordered levothyroxine 25 mcg (0.025 mg) oral tablet 25 mcg 1 tabs, Oral, Daily, # 30 tabs, 11 Refill(s), Pharmacy: [facility] #[id number], 1 tabs Oral Daily Start Date: 11/16/14 Status: Ordered Miscellaneous DME DME Item Accu check Lindsay test strips. Test blood sugar one time daily for diabetes type 2. E11.9, See Instructions, # 100 Each, 3 Refill(s), Pharmacy: [facility] #[id number], Accu check Lindsay test strips. Test blood sugar one time daily for mark... Start Date: 01/25/15 Status: Ordered Miscellaneous DME DME Item Accu check Lindsay Lancets. Use to test blood sugar daily for diabetes type 2 E11.9, See Instructions, # 100 Each, 3 Refill(s), Pharmacy: [facility] #[id number], Accu check Lindsay Lancets. Use to test blood sugar daily for diabetes type 2 E11.... Start Date: 01/25/15 Status: Ordered RABEprazole 20 mg oral delayed release tablet 20 mg 1 tabs, Oral, Daily, # 60 tabs, 11 Refill(s), Pharmacy: [facility] # [id number], 1 tabs Oral Daily,x60 days Start Date: 11/15/14 Stop Date: 11/04/16 Status: Ordered Vitamin D3 2000 IU, Oral, Daily, 0 Refill(s) Start Date: 09/14/13 Status: Ordered Results No data available for this section Immunizations Vaccine Date Refusal Reason hepatitis A adult vaccine 11/15/14 influenza virus vaccine, inactivated 02/08/15 Procedures Procedure Date Related Diagnosis Body Site Colonoscopy1 2009 Esophagogastroduodenoscopy 2009 Esophagogastroduodenoscopy 2004 Chest pain2 1999 Nasal endoscopy with nasal polypectomy3 1997 Caesarean delivery following previous 1990 caesarean4 Umbilical herniorrhaphy 1984 Cholecystectomy 1974 Tonsillectomy 1969 SVD5 1normal, repeat in 10 years 2Hospitalized for chest pain and acid reflux 3sinus surgery 4only one 52 SVDs Social History Social History Type Response [...] realistic goals. Your health care provider or visual educator can help you make an activity [...] Released: 06/19/2004 Document Revised: 08/14/2014 Document Reviewed: [facility] Patient Information 2015 [facility]. This information is not intended to [...] Released: 03/27/2001 Document Revised: 11/30/2013 Document Reviewed: [facility] Patient Information 2015 [employer] [facility]. This information is not intended to replace advice given to you by your health care provider. Make sure you discuss any questions you have with your health care provider. No follow up information was provided. Extracted from: Title: DM, HTN Author: Lex Lyons MD Date: 02/08/15 Impression and Plan Diagnosis Left anterior knee pain (EGD63-HF M25.562, Working, Medical). Benign essential hypertension (VIJ21-CG I10, Working, Medical). GERD (gastroesophageal reflux disease) (ZHS45-BF K21.9, Working, Medical). Adult hypothyroidism (AZJ35-KP E03.9, Working, Medical). Morbid obesity (RCD21-OK E66.01, Working, Medical). Type 2 diabetes, diet controlled (FEJ12-LP E11.9, Working, Medical). Need for influenza vaccination (DRC50-WP Z23, Working, Medical). Plan: 1) Continue your healthy diet and daily exercise. 2) Continue your current meds. 3) Flu shot today. 4) See me in 2 months and as needed. 5) Diabetic Ed sheet #1 given today.. Orders Orders (Selected) Outpatient Orders Ordered Office Visit Level 4 Est 72944: influenza virus vaccine, inactivated: 0.5 mL, IntraMuscular, Once Prescriptions Prescribed amLODIPine 10 mg oral tablet: 10 mg=1 tabs, Oral, Daily, 30 tabs, 11 Refill(s). Dx/Order Association Plan: Diagnosis: Adult hypothyroidism Comment: Diagnosis: Benign essential hypertension Comment: Ordered: Office Visit Level 4 Est 81973; 02/08/15 11:14:00 CDT, Type 2 diabetes, diet controlled | Benign essential hypertension | Left anterior knee pain | GERD (gastroesophageal reflux disease) Diagnosis: GERD (gastroesophageal reflux disease) Comment: Ordered: Office Visit Level 4 Est 30283; 02/08/15 11:14:00 CDT, Type 2 diabetes, diet controlled | Benign essential hypertension | Left anterior knee pain | GERD (gastroesophageal reflux disease) Diagnosis: Left anterior knee pain Comment: Ordered: Office Visit Level 4 Est 34430; 02/08/15 11:14:00 CDT, Type 2 diabetes, diet [...] Comment: Ordered: Office Visit Level 4 Est 08062; 02/08/15 11:14:00 CDT, Type 2 diabetes, diet controlled | Benign essential hypertension | Left anterior knee pain | GERD (gastroesophageal reflux disease) Additional Orders: Comment: Ordered: amLODIPine 10 mg oral tablet,10 mg 1 tabs, Oral, Daily, # 30 tabs, 11 Refill(s), Pharmacy: [facility] #[id number], 1 tabs Oral Daily End of Orders ."
--- OUTSIDE RECORDS SUMMARY | 2016-07-21 06:33 | XMS REPORT | Referral Summary ---
Author Author [facility] [place] Organization [facility] [place] Address Unknown Phone Unavailable Care Team Providers Care Discharging Machine Operator Name Role Phone Brijesh Lyons Primary Care Physician [phone] Encounter Date(s): 05/07/15 - 05/07/15 [facility] [place] [address] [facility] [place], [place] [address] Discharge Disposition: 01-Home or Self Care Attending Physician: Shreyas Marshall MD Admitting Physician: Shreyas Marshall MD Referring Physician: Pedro Gonzalez MD Vital Signs No [...] # 45 tabs, 6 Refill(s), Pharmacy: [facility] #[id number], 0.5 tabs Oral Daily Start Date: 05/02/15 Status: Ordered levothyroxine 25 mcg (0.025 mg) oral tablet 25 mcg 1 tabs, Oral, Daily, # 30 tabs, 11 Refill(s), Pharmacy: [facility] #[id number], 1 tabs Oral Daily Start Date: 11/16/14 Status: Ordered Miscellaneous DME DME Item Accu check Lindsay test strips. Test blood sugar one time daily for diabetes type 2. E11.9, See Instructions, # 100 Each, 3 Refill(s), Pharmacy: [facility] #[id number], Accu check Lindsay test strips. Test blood sugar one time daily for mark... Start Date: 01/25/15 Status: Ordered Miscellaneous DME DME Item Accu check Lindsay Lancets. Use to test blood sugar daily for diabetes type 2 E11.9, See Instructions, # 100 Each, 3 Refill(s), Pharmacy: [facility] #[id number], Accu check Lindsay Lancets. Use to test blood sugar daily for diabetes type 2 E11.... Start Date: 01/25/15 Status: Ordered RABEprazole 20 mg oral delayed release tablet 20 mg 1 tabs, Oral, Daily, # 60 tabs, 11 Refill(s), Pharmacy: [facility] # [id number], 1 tabs Oral Daily,x60 days Start Date: [...]
--- OUTSIDE RECORDS SUMMARY | 2016-07-21 06:33 | XMS REPORT | Referral Summary ---
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 Name Role Phone Brijesh Lyons Primary Care Physician [phone] Encounter Date(s): 10/23/15 - 10/23/15 [facility] [address] [place] [id number] Discharge Disposition: 01-Home or Self [...] DAILY, # 30 tabs, 3 Refill(s), eRx: [facility] #[id number], TAKE ONE TABLET BY MOUTH DAILY Start Date: 07/19/15 Status: Ordered Aspirin Low Dose 81 mg, Oral, Daily, 0 Refill(s) Start Date: 07/30/15 Status: Ordered Benadryl See Instructions, Given IV prior to Rituxan, 0 Refill(s) Start Date: 10/16/15 Status: Ordered bisoprolol 5 mg oral tablet 2.5 mg 0.5 tabs, Oral, Daily, # 45 tabs, 6 Refill(s), Pharmacy: [facility] #[id number], 0.5 tabs Oral Daily Start Date: 05/02/15 Status: Ordered doxycycline hyclate 100 mg oral tablet 100 mg 1 tabs, Oral, BID, X 30 days, # 60 tabs, 0 Refill(s), Pharmacy: [facility] #[id number], 1 tabs Oral BID,x30 days Start Date: 10/23/15 Stop Date: 11/22/15 Status: Ordered levothyroxine 25 mcg (0.025 mg) oral tablet 25 mcg 1 tabs, Oral, Daily, # 30 tabs, 11 Refill(s), Pharmacy: [facility] #[id number], 1 tabs Oral Daily Start Date: 11/16/14 Status: Ordered Miscellaneous DME DME Item Accu check Lindsay test strips. Test blood sugar one time daily for diabetes type 2. E11.9, See Instructions, # 100 Each, 3 Refill(s), Pharmacy: [facility] #[id number], Accu check Lindsay test strips. Test blood sugar one time daily for mark... Start Date: 01/25/15 Status: Ordered Miscellaneous DME DME Item Accu check Lindsay Lancets. Use to test blood sugar daily for diabetes type 2 E11.9, See Instructions, # 100 Each, 3 Refill(s), Pharmacy: [facility] #[id number], Accu check Lindsay Lancets. Use to test [...] with nasal polypectomy1997 Caesarean delivery following previous 1991 caesarean6 Umbilical [...]
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
--- OUTSIDE RECORDS SUMMARY | 2016-07-21 06:33 | XMS REPORT | Referral Summary ---
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 Retail Name Role Phone Brijesh Lyons Primary Care Physician [phone] Encounter VC Date(s): 05/01/15 - 05/01/15 [facility], [address] [place] [address] Discharge Disposition: 01-Home or Self Care Attending Physician: Lex Lyons MD Admitting Physician: Lex Lyons MD Vital Signs Most recent to 1 oldest [Reference Range]: Temperature Tympanic 36.5 degC [36.6-38.1 degC] *LOW* (05/01/15 4:00 PM) Peripheral Pulse 80 bpm Rate [60-100 bpm] (05/01/15 4:00 PM) Respiratory Rate 20 br/min [14-20 br/min] (05/01/15 4:00 PM) Blood Pressure 124/80 mmHg [90-140/60-90 mmHg] (05/01/15 4:00 PM) Problem List Condition Effective Dates Status [...] Oral Daily Start Date: 04/04/15 Status: Ordered levothyroxine 25 mcg (0.025 mg) oral tablet 25 mcg 1 tabs, Oral, Daily, # 30 tabs, 11 Refill(s), Pharmacy: [facility] #[id number], 1 tabs Oral Daily Start Date: 11/16/14 Status: Ordered Miscellaneous DME DME Item Accu check Lindsay test strips. Test blood sugar one time daily for diabetes type 2. E11.9, See Instructions, # 100 Each, 3 Refill(s), Pharmacy: [facility] #[id number], Accu check Lindsay test strips. Test blood sugar one time daily for mark... Start Date: 01/25/15 Status: Ordered Miscellaneous DME DME Item Accu check Lindsay Lancets. Use to test blood sugar daily for diabetes type 2 E11.9, See Instructions, # 100 Each, 3 Refill(s), Pharmacy: [facility] #[id number], Accu check Lindsay Lancets. Use to test blood sugar daily for diabetes type 2 E11.... Start Date: 01/25/15 Status: Ordered RABEprazole 20 mg oral delayed release tablet 20 mg 1 tabs, Oral, Daily, # 60 tabs, 11 Refill(s), Pharmacy: [facility] # [id number], 1 tabs Oral Daily,x60 days Start Date: 11/15/14 Stop Date: 11/04/16 Status: Ordered Tylenol Regular Strength mg, Oral, q4hr, 0 Refill(s) Start Date: 04/04/15 Status: Ordered Vitamin D3 2000 IU, Oral, Daily, 0 Refill(s) Start Date: 09/14/13 Status: Ordered Results Hematology Most recent to 1 oldest [Reference Range]: WBC [4.8-10.8 6.0 10*3/uL 10*3/uL] (05/01/15 5:05 PM) RBC [4.00-5.20] 4.37 (05/01/15 5:05 PM) Hgb [12.0-16.0 12.2 gm/dL gm/dL] (05/01/15 5:05 PM) Hct [37.0-47.0 %] 36.5 % *LOW* (05/01/15 5:05 PM) MCV [82.0-99.0 fL] 83.5 fL (05/01/15 5:05 PM) MCH [27.0-32.0 pg] 27.9 pg (05/01/15 5:05 PM) MCHC [32.0-36.0 33.4 gm/dL gm/dL] (05/01/15 5:05 PM) RDW [11.5-14.5 %] 13.6 % (05/01/15 5:05 PM) Platelet [150-400 170 10*3/uL 10*3/uL] (05/01/15 5:05 PM) MPV [8.8-14.8 fL] 10.6 fL (05/01/15 5:05 PM) Neutrophils [51-75 72 % %] (05/01/15 5:05 PM) Lymphocytes [20-46 17 % %] *LOW* (05/01/15 5:05 PM) Monocytes [4-11 %] 7 % (05/01/15 5:05 PM) Eosinophils [0-4 %] 4 % (05/01/15 5:05 PM) Basophils [0-2 %] 1 % (05/01/15 5:05 PM) Neutro Absolute 4.30 10*3 [1.90-7.00 10*3] (05/01/15 5:05 PM) Lymph Absolute 1.00 10*3 [0.80-3.30 10*3] (05/01/15 5:05 PM) [place] Absolute 0.42 10*3 [0.30-1.00 10*3] (05/01/15 5:05 PM) Eos Absolute 0.22 10*3 [0.00-0.50 10*3] (05/01/15 5:05 PM) Baso Absolute 0.03 10*3 [0.00-0.20 10*3] (05/01/15 5:05 PM) Chemistry Most recent to 1 oldest [Reference Range]: Sodium Lvl [135-144 140 mEq/L mEq/L] (05/01/15 5:05 PM) Potassium Lvl 4.4 mEq/L [3.5-5.2 mEq/L] (05/01/15 5:05 PM) Chloride [99-111 104 mEq/L mEq/L] (05/01/15 5:05 PM) CO2 [22-31 mEq/L] 26 mEq/L (05/01/15 5:05 PM) AGAP [3-20] 10 (05/01/15 5:05 PM) BUN [10-20 mg/dL] 16 mg/dL (05/01/15 5:05 PM) Glucose Lvl [70-99 85 mg/dL mg/dL] (05/01/15 5:05 PM) Creatinine Lvl 0.85 mg/dL [0.57-1.11 mg/dL] (05/01/15 5:05 PM) eGFR [>60 mL/min] >60 mL/min 1 (05/01/15 5:05 PM) Calcium Lvl 9.5 mg/dL [8.9-10.5 mg/dL] (05/01/15 5:05 PM) Albumin Lvl [3.4-4.8 3.9 gm/dL gm/dL] (05/01/15 5:05 PM) Total Protein 7.4 gm/dL [6.2-8.1 gm/dL] (05/01/15 5:05 PM) Globulin [1.8-4.0 3.5 gm/dL gm/dL] (05/01/15 5:05 PM) ALT [0-55 U/L] 14 U/L (05/01/15 5:05 PM) AST [5-34 U/L] 17 U/L (05/01/15 5:05 PM) Alk Phos [40-150 55 U/L U/L] (05/01/15 5:05 PM) Bili Total [0.2-1.2 0.4 mg/dL mg/dL] (05/01/15 5:05 PM) Magnesium Lvl 2.7 mg/dL [1.6-2.6 mg/dL] *HI* (05/01/15 5:05 PM) TSH [0.35-4.94] 1.89 (05/01/15 5:05 PM) 1Result Comment: Multiply eGFR results by [...] Patient Education Author: Lex Lyons MD Date: 05/01 Family Medicine Heart Disease Prevention Heart disease can lead to heart attacks and strokes. This is a leading cause of . Heart disease can be inherited and can be caused from the lifestyle you lead. You can do a lot to keep your heart and blood vessels healthy. WHAT SHOULD I DO EACH DAY TO KEEP MY HEART HEALTHY? Do not smoke. Follow a healthy eating plan as recommended by your caregiver or dietitian. Be active for a total of 30 minutes most days. Ask your caregiver what activities are best for you. Limit the amount of alcohol you drink. Involve family and friends to help you with a healthy lifestyle. HOW DOES HEART DISEASE CAUSE HIGH BLOOD PRESSURE? Narrowed blood vessels leave a smaller opening for blood to flow through. It is like turning on a garden hose and holding your thumb over the opening. The smaller opening makes the water shoot out with more pressure. In the same way, narrowed blood vessels can lead to high blood pressure. Other factors, such as kidney problems and being overweight, also can lead to high blood pressure. If you have high blood pressure you may need to take blood pressure medicine every day. Some types of blood pressure medicine can also help keep your kidneys healthy. Many people with diabetes also have high blood pressure. If you have heart , eye, or kidney problems from diabetes, high blood pressure can make them worse. HOW DO MY BLOOD VESSELS GET CLOGGED? Cholesterol is a substance that is made by the body and used for many important functions. It is also found in food that comes from animals. When your cholesterol is high, it can stick to the insides of your blood vessels, making them narrowed and even clogged. This problem is called atherosclerosis. Narrowed and clogged blood vessels make it harder for blood to get to important body organs. This can cause problems such as: Chest pain (angina). Angina can cause temporary pain in your chest, arms, shoulders, or back. You may feel the pain more when your heart beats faster, such as when you exercise. The pain may go away when you rest. You also may feel very weak and sweaty. A heart attack. A heart attack happens when a blood vessel in or near the heart becomes blocked. Not enough blood is getting to the heart. During a heart attack, you may have chest pain in your chest, arms, shoulders, or back along with nausea, indigestion, extreme weakness, and sweating. WHAT CAN I DO TO PREVENT HEART DISEASE? Keep your blood pressure under control as recommended by your caregiver. Keep your cholesterol under control. Have it checked at least once a year. Target cholesterol levels for most people are: Total blood cholesterol level: Below 200. LDL (bad) cholesterol: Below 100. HDL (good) cholesterol: Above 40 in men and above 50 in women. Triglycerides (another type of fat in the blood): Below 150. Make physical activity a part of your daily routine. Check with your caregiver to learn what activities are best for you. Make sure that the foods you eat are "heart-healthy." Include foods high in fiber, such as oat bran, oatmeal, whole-grain breads and cereals. Cut back on fried foods and foods high in saturated fat. This includes foods such as meats, butter, whole dairy products, shortening, and coconut or palm oil. Avoid salty foods such as canned food, luncheon meat, salty snacks, and fast food. Eat more fruits and vegetables. Drink less alcohol. Lose weight as recommended by your caregiver. If you smoke, quit. Your caregiver can help you with quitting options. Ask your caregiver whether you should take a daily aspirin. Studies have shown that taking aspirin can help reduce your risk of heart disease and stroke. Take your prescribed medicines as directed. WHAT ARE THE WARNING SIGNS OF A HEART ATTACK? You may have one or more of the following warning signs: Chest pain or discomfort. Pain or discomfort in your arms, back, jaw, or neck. Indigestion or stomach pain. Shortness of breath. Sweating. Nausea or vomiting. Lightheadedness. No warning signs at all or they may come and go. FOR MORE INFORMATION To find out more about heart disease and stroke prevention, visit the [place] [employer] website at www.americanheart.org Document Released: 11/11/2004 Document Revised: 09/28/2012 Document Reviewed: ExitCare Patient Information 2015 [email or web address]. This information is not intended to replace advice given to you by your health care provider. Make sure you discuss any questions you have with your health care provider. No follow up information was provided. Extracted from: Title: chest pain, PVCs, DM, HTN Author: Lex Lyons MD Date: 05/01/15 Impression and Plan Diagnosis Acute chest pain (QCJ44-CA R07.9, Working, Medical). Heart palpitations (LXG77-US R00.2, Working, Medical). Benign essential hypertension (EZY50-NM I10, Working, Medical). Type 2 diabetes, diet controlled (POW77-GB E11.9, Working, Medical). 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 Unifocal PVCs (GDX32-VB I49.3, Working, Medical). Plan: 1) Stop the Lisinopril. 2) Lab today. 3) See Dr. Gonzalez. 4) Rest at home: avoid walking. You are to be off work until released to return by the social media developer. 5) Take aspirin 81 mg daily. 60 Go to the ER, or call 911 if your symptoms worsen.. Orders Orders (Selected) Outpatient Orders Ordered Electrocardiogram, Routine Ecg With At Least 12 Leads; Interpretation And Report Only 19513: Office Visit Level 5 Est 63651: Future (On Hold) BNP: CBC w/ Differential: CMP: D-Dimer: Magnesium Level: Message for Lab: TSH 3rd Generation: Troponin: . Dx/Order Association Plan: Diagnosis: Acute chest pain Comment: Ordered: Office Visit Level 5 Est 53371; 05/01/15 16:53:00 DISPOSITION CLERK, Acute chest pain | Unifocal PVCs | Benign essential hypertension | Heart palpitations Electrocardiogram, Routine Ecg With At Least 12 Leads; Interpretation And Report Only [id number]; 05/01/15 16:28:00 DISPOSITION CLERK, 1, Acute chest pain | Benign essential hypertension Diagnosis: Benign essential hypertension Comment: Ordered: Office Visit Level 5 Est [id number]; 05/01/15 16:53:00 DISPOSITION CLERK, Acute chest pain | Unifocal PVCs | Benign essential hypertension | Heart palpitations Electrocardiogram, Routine Ecg With At Least 12 Leads; Interpretation And Report Only [id number]; 05/01/15 16:28:00 DISPOSITION CLERK, 1, Acute chest pain | Benign essential hypertension Diagnosis: Gammopathy, monoclonal Comment: Diagnosis: Heart palpitations Comment: Ordered: Office Visit Level 5 Est 37461; 05/01/15 16:53:00 DISPOSITION CLERK, Acute chest pain | Unifocal PVCs | Benign essential hypertension | Heart palpitations Diagnosis: Type 2 diabetes, diet controlled Comment: Diagnosis: Unifocal PVCs Comment: Ordered: Office Visit Level 5 Est [id number]; 05/01/15 16:53:00 DISPOSITION CLERK, Acute chest pain | Unifocal PVCs | Benign essential hypertension | Heart palpitations Diagnosis: Heart palpitations Comment: Diagnosis: Type 2 diabetes, diet controlled Comment: Diagnosis: Benign essential hypertension Comment: Diagnosis: Acute chest pain Comment: Diagnosis: Benign essential hypertension Comment: Diagnosis: Acute chest pain Comment: Diagnosis: Benign essential hypertension Comment: Diagnosis: Acute chest pain Comment: Diagnosis: Heart palpitations Comment: Diagnosis: Type 2 diabetes, diet controlled Comment: Diagnosis: Acute chest pain Comment: Diagnosis: Benign essential hypertension Comment: Diagnosis: Acute chest pain Comment: Diagnosis: Benign essential hypertension Comment: Diagnosis: Acute chest pain Comment: Diagnosis: Heart palpitations Comment: Diagnosis: Type 2 diabetes, diet controlled Comment: Diagnosis: Benign essential hypertension Comment: Diagnosis: Acute chest pain Comment: Diagnosis: Heart palpitations Comment: End of Orders .
--- OUTSIDE RECORDS SUMMARY | 2016-07-21 06:33 | XMS REPORT | Referral Summary ---
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 #[id number], TAKE ONE TABLET BY MOUTH DAILY Start Date: 02/21/16 Status: Ordered Aspirin Low Dose 81 mg, Oral, Daily, 0 Refill(s) Start Date: 07/30/15 Status: Ordered bisoprolol 5 mg oral tablet 2.5 mg 0.5 tabs, Oral, Daily, # 45 tabs, 6 Refill(s), Pharmacy: [facility] #[id number], 0.5 tabs Oral Daily Start Date: 05/02/15 Status: Ordered cyclobenzaprine 10 mg oral tablet 10 mg 1 tabs, Oral, TID, as needed for spasm, # 30 tabs, 0 Refill(s) Start Date: 03/14/16 Status: Ordered levothyroxine 25 mcg (0.025 mg) oral tablet See Instructions, TAKE ONE TABLET BY MOUTH DAILY, # 30 tabs, 11 Refill(s), eRx: [facility] #[id number], TAKE ONE TABLET BY MOUTH DAILY Start Date: 11/08/15 Status: Ordered metFORMIN 500 mg oral tablet, extended release See Instructions, 1 tablet oral with supper for 1 week and then 2 with supper daily, # 60 Each, 11 Refill(s), Pharmacy: [facility] #[id number], 1 tablet oral with supper for 1 week and then 2 with supper daily Start Date: 11/02/15 Status: Ordered Miscellaneous DME DME Item Accu check Lindsay test strips. Test blood sugar one time daily for diabetes type 2. E11.9, See Instructions, # 100 Each, 3 Refill(s), Pharmacy: [facility] #[id number], Accu check Lindsay test strips. Test blood sugar one time daily for mark... Start Date: 01/25/15 Status: Ordered Miscellaneous DME DME Item Accu check Lindsay Lancets. Use to test blood sugar daily for diabetes type 2 E11.9, See Instructions, # 100 Each, 3 Refill(s), Pharmacy: [facility] #[id number], Accu check Lindsay Lancets. Use to test blood sugar daily for diabetes type 2 E11.... Start Date: 01/25/15 Status: Ordered RABEprazole 20 mg oral delayed release tablet See Instructions, TAKE ONE TABLET BY MOUTH DAILY, # 60 tabs, eRx: [facility] #[id number], TAKE ONE TABLET BY MOUTH DAILY Start [...]
--- OUTSIDE RECORDS SUMMARY | 2016-07-21 06:33 | XMS REPORT | Referral Summary ---
Author Author [facility] Organization [facility] Address Unknown Phone Unavailable Care Team Providers Care Administrative Intern Name Role Phone Brijesh Lyons Primary Care Physician [phone] Encounter Date(s): 10/16/15 - 10/16/15 [facility], [facility] [address] [place] [id number] Discharge Diagnosis: GILDA (obstructive sleep apnea) Discharge Diagnosis: Morbid obesity Discharge Disposition: 01-Home or Self Care Attending Physician: Arsenio Torres MD Admitting Physician: Arsenio Torres MD Referring Physician: Arsenio Torres MD Vital Signs Most recent to 1 oldest [Reference Range]: Peripheral Pulse 86 bpm Rate [60-100 bpm] (10/16/15 1:45 PM) Blood Pressure 124/78 mmHg [90-140/60-90 mmHg] (10/16/15 1:45 PM) SpO2 95 % (10/16/15 1:45 PM) Problem List Condition Effective Dates Status [...] # 30 tabs, 3 Refill(s), eRx: [facility] #[id number], TAKE ONE TABLET BY MOUTH DAILY Start Date: 07/19/15 Status: Ordered Aspirin Low Dose 81 mg, Oral, Daily, 0 Refill(s) Start Date: 07/30/15 Status: Ordered Benadryl See Instructions, Given IV prior to Rituxan, 0 Refill(s) Start Date: 10/16/15 Status: Ordered bisoprolol 5 mg oral tablet 2.5 mg 0.5 tabs, Oral, Daily, # 45 tabs, 6 Refill(s), Pharmacy: [facility] #[id number], 0.5 tabs Oral Daily Start Date: 05/02/15 Status: Ordered levothyroxine 25 mcg (0.025 mg) oral tablet 25 mcg 1 tabs, Oral, Daily, # 30 tabs, 11 Refill(s), Pharmacy: [facility] #[id number], 1 tabs Oral Daily Start Date: 11/16/14 Status: Ordered Miscellaneous DME DME Item Accu check Lindsay test strips. Test blood sugar one time daily for diabetes type 2. E11.9, See Instructions, # 100 Each, 3 Refill(s), Pharmacy: [facility] #[id number], Accu check Lindsay test strips. Test blood sugar one time daily for mark... Start Date: 01/25/15 Status: Ordered Miscellaneous DME DME Item Accu check Lindsay Lancets. Use to test blood sugar daily for diabetes type 2 E11.9, See Instructions, # 100 Each, 3 Refill(s), Pharmacy: [facility] #[id number], Accu check Lindsay Lancets. Use to test [...] smoker Assessment and Plan Extracted from: Title: Office Visit Note Author: Arsenio Trores MD Date: 10/16/15 Assessment/Plan 1.GILDA (obstructive sleep apnea) Ordered: Office Visit Level 3 Est 71142 2.Morbid obesity This 65-year-old female has severe obstructive sleep apnea based upon recent split protocol PSG results. In the approximately 2 months that she has had regular access to CPAP, shedid not contactthis office or respiratory therapy to help her with her mask difficulties. She has contacted an ear nose and throat physician regarding thisatypical breathing pattern where she cannot inhale throughher nares with CPAP, but is able to exhale. She is concerned there is asinusstructural abnormality and I applaud that sheis having at looked into. However, she would be able to mouthbreathe continuing to use her current fullface maskinterface with CPAP. There seems to be more excuses being made than actual problems. I let her know that is not uncommon for patients to havea mask interface issues but that we have to get pastthat by first identifying them, and then getting her in to see respiratory therapy for troubleshooting. Then which be expected to be more compliant. I emphasized the importance of this, as she has significant obesity. And do better in terms of weight loss if she has more energy during the dayis something that can occur if she is compliant with her CPAP.This isin addition to amultitude of othermedical risks reductions that occur withproper CPAP carefor severe GILDA. She expressed understanding and agreement as well as willingness to return in approximately4 to 6 weeks for reassessment. Ordered: Office Visit Level 3 Est 92706
--- OUTSIDE RECORDS SUMMARY | 2016-07-21 06:33 | XMS REPORT | Referral Summary ---
Author Author [facility] Organization [facility] Address Unknown Phone Unavailable Care Team Providers Care Special Education Secretary Name Role Phone Brijesh Lyons Primary Care Physician [phone] Encounter VC Date(s): 07/30/15 - 07/30/15 [facility], [address] [place] [address] Discharge Disposition: 01-Home or Self Care Attending Physician: Lex Lyons MD Admitting Physician: Lex Lyons MD Vital Signs Most recent to 1 oldest [Reference Range]: Temperature Tympanic 36 degC [36.6-38.1 degC] *LOW* (07/30/15 8:53 AM) Peripheral Pulse 72 bpm Rate [60-100 bpm] (07/30/15 8:53 AM) Blood Pressure 136/76 mmHg [90-140/60-90 mmHg] (07/30/15 8:53 AM) Problem List Condition Effective Dates Status [...] DAILY, # 30 tabs, 3 Refill(s), eRx: [facility] #[id number], TAKE ONE TABLET BY MOUTH DAILY Start Date: 07/19/15 Status: Ordered Aspirin Low Dose 81 mg, Oral, Daily, 0 Refill(s) Start Date: 07/30/15 Status: Ordered bisoprolol 5 mg oral tablet 2.5 mg 0.5 tabs, Oral, Daily, # 45 tabs, 6 Refill(s), Pharmacy: [facility] #[id number], 0.5 tabs Oral Daily Start Date: 05/02/15 Status: Ordered levothyroxine 25 mcg (0.025 mg) oral tablet 25 mcg 1 tabs, Oral, Daily, # 30 tabs, 11 Refill(s), Pharmacy: [facility] #[id number], 1 tabs Oral Daily Start Date: 11/16/14 Status: Ordered Miscellaneous DME DME Item Accu check Lindsay test strips. Test blood sugar one time daily for diabetes type 2. E11.9, See Instructions, # 100 Each, 3 Refill(s), Pharmacy: [facility] #[id number], Accu check Lindsay test strips. Test blood sugar one time daily for mark... Start Date: 01/25/15 Status: Ordered Miscellaneous DME DME Item Accu check Lindsay Lancets. Use to test blood sugar daily for diabetes type 2 E11.9, See Instructions, # 100 Each, 3 Refill(s), Pharmacy: [facility] #[id number], Accu check Lindsay Lancets. Use to test blood sugar daily for diabetes type 2 E11.... Start Date: 01/25/15 Status: Ordered nystatin 100,000 units/mL oral suspension 500,000 units 5 mL, Oral, QID, swish and swallow, X 14 days, # 280 mL, 0 Refill( s), Pharmacy: [facility] #[id number], 5 mL Oral QID,x14 days,Instr:swish and swallow Start Date: 07/30/15 Stop Date: 08/13/15 Status: Ordered Tylenol Regular Strength 650 mg, [...] Patient Education Author: Lex Lyons MD Date: 07/29 Family Medicine Diabetes and Standards of Medical Care Diabetes is complicated. You may find that your diabetes team includes a dietitian, nurse, life skills educator, eye doctor, and more. To help everyone know what is going on and to help you get the care you deserve, the following schedule of care was developed to help keep you on track. Below are the tests, exams, vaccines, medicines, education, and plans you will need. HbA1c test This test shows how well you have controlled your glucose over the past 23 months. It is used to see if your diabetes management plan needs to be adjusted. It is performed at least 2 times a year if you are meeting treatment goals. It is performed 4 times a year if therapy has changed or if you are not meeting treatment goals. Blood pressure test This test is performed at every routine medical visit. The goal is less than 140/90 mm Hg for most people, but 130/80 mm Hg in some cases. Ask your health care provider about your goal. Dental exam Follow up with the dentist regularly. Eye exam If you are diagnosed with type 1 diabetes as a child, get an exam upon reaching the age of 10 years or older and having had diabetes for 35 years. Yearly eye exams are recommended after that initial eye exam. If you are diagnosed with type 1 diabetes as an adult, get an exam within 5 years of diagnosis and then yearly. If you are diagnosed with type 2 diabetes, get an exam as soon as possible after the diagnosis and then yearly. Foot care exam Visual foot exams are performed at every routine medical visit. The exams check for cuts, injuries, or other problems with the feet. You should have a complete foot exam performed every year. This exam includes an inspection of the structure and skin of your feet, a check of the pulses in your feet, and a check of the sensation in your feet. Type 1 diabetes: The first exam is performed 5 years after diagnosis. Type 2 diabetes: The first exam is performed at the time of diagnosis. Check your feet nightly for cuts, injuries, or other problems with your feet. Tell your health care provider if anything is not healing. Kidney function test (urine microalbumin) This test is performed once a year. Type 1 diabetes: The first test is performed 5 years after diagnosis. Type 2 diabetes: The first test is performed at the time of diagnosis. A serum creatinine and estimated glomerular filtration rate (eGFR) test is done once a year to assess the level of chronic kidney disease (CKD), if present. Lipid profile (cholesterol, HDL, LDL, triglycerides) Performed every 5 years for most people. The goal for LDL is less than 100 mg/dL. If you are at high risk, the goal is less than 70 mg/dL. The goal for HDL is 40 mg/dL50 mg/dL for men and 50 mg/dL60 mg/dL for women. An HDL cholesterol of 60 mg/dL or higher gives some protection against heart disease. The goal for triglycerides is less than 150 mg/dL. Immunizations The flu (influenza) vaccine is recommended yearly for every person 6 months of age or older who has diabetes. The pneumonia (pneumococcal) vaccine is recommended for every person 2 years of age or older who has diabetes. Adults 65 years of age or older may receive the pneumonia vaccine as a series of two separate shots. The hepatitis B vaccine is recommended for adults shortly after they have been diagnosed with diabetes. The Tdap (tetanus, diphtheria, and pertussis) vaccine should be given: According to normal childhood vaccination schedules, for children. Every 10 years, for adults who have diabetes. Diabetes self-management education Education is recommended at diagnosis and ongoing as needed. Treatment plan Your treatment plan is reviewed at every medical visit. This information is not intended to replace advice given to you by your health care provider. Make sure you discuss any questions you have with your health care provider. Document Released: 01/25/2010 Document Revised: 01/16/2015 Document Reviewed: ExitCare Patient Information 2015 [employer] [facility]. No follow up information was provided. Extracted from: Title: DM, thrush, HTN Author: Lex Lyons MD Date: 07/30/15 Impression and Plan Diagnosis Waldenstrom macroglobulinemia (AQS72-RN C88.0, Working, Medical). Morbid obesity (PTQ96-HG E66.01, Working, Medical). Oral thrush (IOZ23-IR B37.0, Working, Medical). Well controlled diabetes mellitus (OQB11-AY E11.9, Working, Medical). Benign essential hypertension (GKH31-CR I10, Working, Medical). Adult hypothyroidism (NPM69-ED E03.9, Working, Medical). Snoring (CGN43-QJ R06.83, Working, Medical). Plan: 1) Use the nystatin suspension as directed. 2) Stop regular toothpaste and use [place]. 3) Continue your present meds. 4) See me in 3 months and as needed. 5) Proceed with your sleep evaluation as planned.. Orders Orders (Selected) Outpatient Orders Ordered Office Visit Level 4 Est 28118: Prescriptions Prescribed nystatin 100,000 units/mL oral suspension: 500,000 units=5 mL, Oral, QID, for 14 days, swish and swallow, 280 mL, 0 Refill(s). Dx/Order Association Plan: Diagnosis: Adult hypothyroidism Comment: Ordered: Office Visit Level 4 Est 31951; 07/30/15 12:52:00 CDT, Oral thrush | Benign essential hypertension | Well controlled diabetes mellitus | Waldenstrom macroglobulinemia | Adult hypothyroidism Diagnosis: Benign essential hypertension Comment: Ordered: Office Visit Level 4 Est 22670; 07/30/15 12:52:00 CDT, Oral thrush | Benign essential hypertension | Well controlled diabetes mellitus | Waldenstrom macroglobulinemia | Adult hypothyroidism Diagnosis: Morbid obesity Comment: Diagnosis: Oral thrush Comment: Ordered: Office Visit Level 4 Est 24067; 07/30/15 12:52:00 CDT, Oral thrush | Benign essential hypertension | Well controlled diabetes mellitus | Waldenstrom macroglobulinemia | Adult hypothyroidism Diagnosis: Snoring Comment: Diagnosis: Waldenstrom macroglobulinemia Comment: Ordered: Office Visit Level 4 Est 77638; 07/30/15 12:52:00 CDT, Oral thrush | Benign essential hypertension | Well controlled diabetes mellitus | Waldenstrom macroglobulinemia | Adult hypothyroidism Diagnosis: Well controlled diabetes mellitus Comment: Ordered: Office Visit Level 4 Est 78874; 07/30/15 12:52:00 CDT, Oral thrush | Benign essential hypertension | Well controlled diabetes mellitus | Waldenstrom macroglobulinemia | Adult hypothyroidism Additional Orders: Comment: Ordered: Aspirin Low Dose,81 mg, Oral, Daily, 0 Refill(s) Ordered: nystatin 100,000 units/mL oral suspension,500,000 units 5 mL, Oral, QID, swish and swallow, X 14 days, # 280 mL, 0 Refill(s), Pharmacy: [facility] #[id number], 5 mL Oral QID,x14 days,Instr:swish and swallow End of Orders ."
--- OUTSIDE RECORDS SUMMARY | 2016-07-21 06:33 | XMS REPORT | Referral Summary ---
Author Author [facility] Organization [facility] Address Unknown Phone Unavailable Care Team Providers Care Human Service Worker Name Role Phone Brijesh Lyons Primary Care Physician [phone] Encounter Date(s): 11/14/15 - 11/14/15 [facility] [address] [place] [address] [place] [address] Discharge Diagnosis: Leg edema Discharge Diagnosis: Sleep apnea Discharge Diagnosis: Essential hypertension Discharge Diagnosis: Chronic kidney disease Discharge Diagnosis: PVC (premature ventricular contraction) Discharge Diagnosis: Monoclonal gammopathy Discharge Disposition: 01-Home or Self Care Attending Physician: Pedro Gonzalez MD Admitting Physician: Pedro Gonzalez MD Referring Physician: Lex Lyons MD Vital Signs Most recent to 1 oldest [Reference Range]: Peripheral Pulse 56 bpm Rate [60-100 bpm] *LOW* (11/14/15 1:39 PM) Blood Pressure 138/84 mmHg [90-140/60-90 mmHg] (11/14/15 1:39 PM) Problem List Condition Effective Dates Status [...] DAILY, # 30 tabs, 3 Refill(s), eRx: [facility] #[id number], TAKE ONE TABLET BY MOUTH DAILY Start Date: 07/19/15 Status: Ordered Aspirin Low Dose 81 mg, Oral, Daily, 0 Refill(s) Start Date: 07/30/15 Status: Ordered bisoprolol 5 mg oral tablet 2.5 mg 0.5 tabs, Oral, Daily, # 45 tabs, 6 Refill(s), Pharmacy: [facility] #[id number], 0.5 tabs Oral Daily Start Date: 05/02/15 Status: Ordered doxycycline hyclate 100 mg oral tablet 100 mg 1 tabs, Oral, BID, X 30 days, # 60 tabs, 0 Refill(s), Pharmacy: [facility] #[id number], 1 tabs Oral BID,x30 days Start Date: 10/23/15 Stop Date: 11/22/15 Status: Ordered levothyroxine 25 mcg (0.025 mg) oral tablet See Instructions, TAKE ONE TABLET BY MOUTH DAILY, # 30 tabs, 11 Refill(s), eRx: [facility] #[id number], TAKE ONE TABLET BY MOUTH DAILY Start Date: 11/08/15 Status: Ordered metFORMIN 500 mg oral tablet, extended release See Instructions, 1 tablet oral with supper for 1 week and then 2 with supper daily, # 60 Each, 11 Refill(s), Pharmacy: [facility] #[id number], 1 tablet oral with supper for 1 week and then 2 with supper daily Start Date: 11/02/15 Status: Ordered Miscellaneous DME DME Item Accu check Lindsay test strips. Test blood sugar one time daily for diabetes type 2. E11.9, See Instructions, # 100 Each, 3 Refill(s), Pharmacy: [facility] #[id number], Accu check Lindsay test strips. Test blood sugar one time daily for mark... Start Date: 01/25/15 Status: Ordered Miscellaneous DME DME Item Accu check Lindsay Lancets. Use to test blood sugar daily for diabetes type 2 E11.9, See Instructions, # 100 Each, 3 Refill(s), Pharmacy: [facility] #[id number], Accu check Lindsay Lancets. Use to test [...] Extracted from: Title: Office Visit Note Author: Pedro Gonzalez MD Date: 11/14/15 Assessment/Plan 1.Leg edema 2.Essential hypertension 3.Monoclonal gammopathy 4.Chronic kidney disease 5.Sleep apnea 6.PVC (premature ventricular contraction) Discussion: I did an EKG which demonstrates frequent ventricular premature contractions but no other compelling abnormality. Whitney needs to have laboratory work to be sure that her kidney function is stable but she is seeing herkidney specialist next weekand we willletthe kidney specialist in the patient negotiate which labs disorder. At this point, I think it's reasonable to sit tight. She is also seeing her lung specialist regarding the sleep abnormality.
--- OUTSIDE RECORDS SUMMARY | 2016-07-21 06:33 | XMS REPORT | Referral Summary ---
Author Author [facility] Organization [facility] Address Unknown Phone Unavailable Care Team Providers Care Assistant Sales Manager Name Role Phone Brijesh Lyons Primary Care Physician [phone] Encounter Date(s): 03/20/15 - 03/20/15 [facility] [address] [place] [address] [place] [address] Discharge Diagnosis: Left thyroid nodule Discharge Diagnosis: Right thyroid nodule Discharge Disposition: 01-Home or Self Care Attending Physician: Arsenio Johnson MD Admitting Physician: Arsenio Johnson MD Referring Physician: Vicente Whitney MD Vital Signs Most recent to 1 oldest [Reference Range]: Temperature Tympanic 37 degC [36.6-38.1 degC] (03/20/15 3:02 PM) Blood Pressure 128/88 mmHg [90-140/60-90 mmHg] (03/20/15 3:02 PM) Problem List Condition Effective Dates Status [...] Daily, # 30 tabs, 11 Refill(s), Pharmacy: [facility] # [id number], 1 tabs Oral Daily Start Date: 02/08/15 Status: Ordered levothyroxine 25 mcg (0.025 mg) oral tablet 25 mcg 1 tabs, Oral, Daily, # 30 tabs, 11 Refill(s), Pharmacy: [facility] #[id number], 1 tabs Oral Daily Start Date: 11/16/14 Status: Ordered Miscellaneous DME DME Item Accu check Lindsay test strips. Test blood sugar one time daily for diabetes type 2. E11.9, See Instructions, # 100 Each, 3 Refill(s), Pharmacy: [facility] #[id number], Accu check Lindsay test strips. Test blood sugar one time daily for mark... Start Date: 01/25/15 Status: Ordered Miscellaneous DME DME Item Accu check Lindsay Lancets. Use to test blood sugar daily for diabetes type 2 E11.9, See Instructions, # 100 Each, 3 Refill(s), Pharmacy: [facility] #[id number], Accu check Lindsay Lancets. Use to test blood sugar daily for diabetes type 2 E11.... Start Date: 01/25/15 Status: Ordered RABEprazole 20 mg oral delayed release tablet 20 mg 1 tabs, Oral, Daily, # 60 tabs, 11 Refill(s), Pharmacy: [facility] # [id number], 1 tabs Oral Daily,x60 days Start Date: [...] Extracted from: Title: Ambulatory Patient Education Author: Arsenio Johnson MD Date: 03/20/15 Family Medicine Thyroid Biopsy The thyroid gland is a butterfly-shaped gland situated in the front of the neck. It produces hormones which affect metabolism, growth and development, and body temperature. A thyroid biopsy is a procedure in which small samples of tissue or fluid are removed from the thyroid gland or mass and examined under a microscope. This test is done to determine the cause of thyroid problems, such as infection, cancer, or other thyroid problems. There are 2 ways to obtain samples: 1. Fine needle biopsy. Samples are removed using a thin needle inserted through the skin and into the thyroid gland or mass. 2. Open biopsy. Samples are removed after a cut (incision) is made through the skin. LET YOUR CAREGIVER KNOW ABOUT: Allergies. Medications taken including herbs, eye drops, jxun-xlo-bizhvln medications , and creams. Use of steroids (by mouth or creams). Previous problems with anesthetics or numbing medicine. Possibility of , if this applies. History of blood clots (thrombophlebitis). History of bleeding or blood problems. Previous surgery. Other health problems. RISKS AND COMPLICATIONS Bleeding from the site. The risk of bleeding is higher if you have a bleeding disorder or are taking any blood thinning medications (anticoagulants) . Infection. Injury to structures near the thyroid gland. BEFORE THE PROCEDURE This is a procedure that can be done as an outpatient. Confirm the time that you need to arrive for your procedure. Confirm whether there is a need to fast or withhold any medications. A blood sample may be done to determine your blood clotting time. Medicine may be given to help you relax (sedative). PROCEDURE Fine needle biopsy. You will be awake during the procedure. You may be asked to lie on your back with your head tipped backward to extend your neck. Let your caregiver know if you cannot tolerate the positioning. An area on your neck will be cleansed. A needle is inserted through the skin of your neck. You may feel a mild discomfort during this procedure. You may be asked to avoid coughing, talking, swallowing, or making sounds during some portions of the procedure. The needle is withdrawn once tissue or fluid samples have been removed. Pressure may be applied to the neck to reduce swelling and ensure that bleeding has stopped. The samples will be sent for examination. Open biopsy. You will be given general anesthesia. You will be asleep during the procedure. An incision is made in your neck. A sample of thyroid tissue or the mass is removed. The tissue sample or mass will be sent for examination. The sample or mass may be examined during the biopsy. If the sample or mass contains cancer cells, some or all of the thyroid gland may be removed. The incision is closed with stitches. AFTER THE PROCEDURE Your recovery will be assessed and monitored. If there are no problems, as an outpatient, you should be able to go home shortly after the procedure. If you had a fine needle biopsy: You may have soreness at the biopsy site for 1 to 2 days. If you had an open biopsy: You may have soreness at the biopsy site for 3 to 4 days. You may have a hoarse voice or sore throat for 1 to 2 days. Obtaining the Test Results It is your responsibility to obtain your test results. Do not assume everything is normal if you have not heard from your caregiver or the medical facility. It is important for you to follow up on all of your test results. HOME CARE INSTRUCTIONS Keeping your head raised on a pillow when you are lying down may ease biopsy site discomfort. Supporting the back of your head and neck with both hands as you sit up from a lying position may ease biopsy site discomfort. Only take roym-axq-qveqscp or prescription medicines for pain, discomfort, or fever as directed by your caregiver. Throat lozenges or gargling with warm salt water may help to soothe a sore throat. SEEK IMMEDIATE MEDICAL CARE IF: You have severe bleeding from the biopsy site. You have difficulty swallowing. You have a fever. You have increased pain, swelling, redness, or warmth at the biopsy site. You notice pus coming from the biopsy site. You have swollen glands (lymph nodes) in your neck. Document Released: 01/25/2008 Document Revised: 07/25/2013 Document Reviewed: ExitCare Patient Information 2015 [employer]. This information is not intended to replace advice given to you by your health care provider. Make sure you discuss any questions you have with your health care provider. No follow up information was provided. Extracted from: Title: Office Visit Note Author: Arsenio Johnson MD Date: 03/20/15 Assessment/Plan Left thyroid nodule, Right thyroid nodule Ordered: Office Visit Level 4 [place] [address] [place] Aspiration/Inject/Biopsy Right Plan: Fine-needle aspiration thyroid under ultrasound guidance of nodule within therightthyroid lobe. I did review the patient's chart including anoffice note performed by heroncologist from March 01, 2015.Reviewedrecent thyroid sonogram fromMarch 15 revealed a 3 cmx 2 cmdominantheterogeneous right thyroid nodulecorresponding to therecent abnormal CT scan of the chest.Fine-needle aspiration was recommended.Patient was also found to have smallerhypoechoic complex nodulesmeasuring for about 7-11 mm involving left thyroidlobe.I did spend a fair amount of time discussing thyroid nodules with the patient. Discussed that the next step at this time would be to proceed with a fine-needle aspiration. I discussed with the patient what an FNA of the thyroid entailed, including risks. Patient understood and wished to proceed. The patient was subsequently taken to the ultrasound suite. One could clearly see the heterogeneous nodule within therightthyroid lobe. One percent lidocaine with epinephrine was injected overlying the nodule. Under sono guidance a25 gauge needle was advanced directly into the nodule. 2 separate passes were performed. Cellular contents were placed on slides for cytologic evaluation. The patient tolerated the procedure without difficulty. We will await FNA results and proceed accordingly .
--- OUTSIDE RECORDS SUMMARY | 2016-07-21 06:33 | XMS REPORT | Referral Summary ---
Author Author [facility] Organization [facility] Address Unknown Phone Unavailable Care Team Providers Care Senior Python Developer Name Role Phone Brijesh Lyons Primary Care Physician [phone] Encounter Date(s): 05/02/15 - 05/02/15 [facility] [address] [place] [address] [place] [address] Discharge Diagnosis: Chronic kidney disease (CKD) Discharge Diagnosis: Atypical chest pain Discharge Diagnosis: Palpitations Discharge Diagnosis: Over weight Discharge Diagnosis: Dyspnea Discharge Diagnosis: Essential hypertension Discharge Disposition: 01-Home or Self Care Attending Physician: Pedro Gonzalez MD Admitting Physician: Pedro Gonzalez MD Referring Physician: Lex Lyons MD Vital Signs Most recent to 1 oldest [Reference Range]: Peripheral Pulse 80 bpm Rate [60-100 bpm] (05/02/15 1:49 PM) Blood Pressure 134/90 mmHg [90-140/60-90 mmHg] (05/02/15 1:49 PM) Problem List Condition Effective Dates Status [...] 6 Refill(s), Pharmacy: [facility] #[id number], 0.5 tabs Oral Daily Start Date: 05/02/15 Status: Ordered levothyroxine 25 mcg (0.025 mg) oral tablet 25 mcg 1 tabs, Oral, Daily, # 30 tabs, 11 Refill(s), Pharmacy: [facility] #[id number], 1 tabs Oral Daily Start Date: 11/16/14 Status: Ordered Miscellaneous DME DME Item Accu check Lindsay test strips. Test blood sugar one time daily for diabetes type 2. E11.9, See Instructions, # 100 Each, 3 Refill(s), Pharmacy: [facility] #[id number], Accu check Lindsay test strips. Test blood sugar one time daily for mark... Start Date: 01/25/15 Status: Ordered Miscellaneous DME DME Item Accu check Lindsay Lancets. Use to test blood sugar daily for diabetes type 2 E11.9, See Instructions, # 100 Each, 3 Refill(s), Pharmacy: [facility] #[id number], Accu check Lindsay Lancets. Use to test blood sugar daily for diabetes type 2 E11.... Start Date: 01/25/15 Status: Ordered RABEprazole 20 mg oral delayed release tablet 20 mg 1 tabs, Oral, Daily, # 60 tabs, 11 Refill(s), Pharmacy: [facility] # [id number], 1 tabs Oral Daily,x60 days Start Date: 11/15/14 Stop Date: 11/04/16 Status: Ordered Tylenol Regular Strength mg, Oral, q4hr, 0 Refill(s) Start Date: 04/04/15 Status: Ordered Vitamin D3 2000 IU, Oral, Daily, 0 Refill(s) Start Date: 09/14/13 Status: Ordered Results Coagulation Most recent to 1 oldest [Reference Range]: D-Dimer [0-590 530 ng{FEU}/mL ng{FEU}/mL] (05/02/15 2:38 PM) Immunizations Vaccine Date Refusal Reason tetanus/diphth/pertuss (Tdap) [...]
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
--- OUTSIDE RECORDS SUMMARY | 2016-07-21 06:34 | XMS REPORT | Referral Summary ---
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 [place], [place] [address] Discharge Disposition: 01-Home or Self Care Attending Physician: hSreyas Marshall MD Referring Physician: Pedro Gonzalez MD [...] Pharmacy: [facility] #[id number], 0.5 tabs Oral Daily Start Date: 05/02/15 Status: Ordered levothyroxine 25 mcg (0.025 mg) oral tablet 25 mcg 1 tabs, Oral, Daily, # 30 tabs, 11 Refill(s), Pharmacy: [facility] #[id number], 1 tabs Oral Daily Start Date: 11/16/14 Status: Ordered Miscellaneous DME DME Item Accu check Lindsay test strips. Test blood sugar one time daily for diabetes type 2. E11.9, See Instructions, # 100 Each, 3 Refill(s), Pharmacy: [facility] #[id number], Accu check Lindsay test strips. Test blood sugar one time daily for mark... Start Date: 01/25/15 Status: Ordered Miscellaneous DME DME Item Accu check Lindsay Lancets. Use to test blood sugar daily for diabetes type 2 E11.9, See Instructions, # 100 Each, 3 Refill(s), Pharmacy: [facility] #[id number], Accu check Lindsay Lancets. Use to test blood sugar daily for diabetes type 2 E11.... Start Date: 01/25/15 Status: Ordered RABEprazole 20 mg oral delayed release tablet 20 mg 1 tabs, Oral, Daily, # 60 tabs, 11 Refill(s), Pharmacy: [facility] # [id number], 1 tabs Oral Daily,x60 days Start Date: [...]
--- OUTSIDE RECORDS SUMMARY | 2016-07-21 06:34 | XMS REPORT | Referral Summary ---
Author Author [facility] Organization [facility] Address Unknown Phone Unavailable Care Team Providers Care Supervisor Pleating Name Role Phone Brijesh Lyons Primary Care Physician [phone] Encounter VC Date(s): 05/16/15 - 05/16/15 [facility] [address] [place] [address] [place] [address] [place] Discharge Disposition: 01-Home or Self Care Attending Physician: Pedro Gonzalez MD Admitting Physician: Pedro Gonzalez MD Referring Physician: Lex Lyons MD Vital Signs No data available for [...] # 45 tabs, 6 Refill(s), Pharmacy: [facility] #[id number], 0.5 tabs Oral Daily Start Date: 05/02/15 Status: Ordered levothyroxine 25 mcg (0.025 mg) oral tablet 25 mcg 1 tabs, Oral, Daily, # 30 tabs, 11 Refill(s), Pharmacy: [facility] #[id number], 1 tabs Oral Daily Start Date: 11/16/14 Status: Ordered Miscellaneous DME DME Item Accu check Lindsay test strips. Test blood sugar one time daily for diabetes type 2. E11.9, See Instructions, # 100 Each, 3 Refill(s), Pharmacy: [facility] #[id number], Accu check Lindsay test strips. Test blood sugar one time daily for mark... Start Date: 01/25/15 Status: Ordered Miscellaneous DME DME Item Accu check Lindsay Lancets. Use to test blood sugar daily for diabetes type 2 E11.9, See Instructions, # 100 Each, 3 Refill(s), Pharmacy: [facility] #[id number], Accu check Lindsay Lancets. Use to test blood sugar daily for diabetes type 2 E11.... Start Date: 01/25/15 Status: Ordered RABEprazole 20 mg oral delayed release tablet 20 mg 1 tabs, Oral, Daily, # 60 tabs, 11 Refill(s), Pharmacy: [facility] # [id number], 1 tabs Oral Daily,x60 days Start Date: [...]
--- OUTSIDE RECORDS SUMMARY | 2016-07-21 06:34 | XMS REPORT | Referral Summary ---
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 Developer Name Role Phone Brijesh Lyons Primary Care Physician [phone] Encounter VC Date(s): 05/09/15 - 05/09/15 [facility] [address] [place] [address] [place] [address] [place] Discharge Diagnosis: Atypical chest pain Discharge Diagnosis: Dry cough Discharge Diagnosis: Frequent PVCs Discharge Disposition: 01-Home or Self Care Attending Physician: Pedro Gonzalez MD Admitting Physician: Pedro Gonzalez MD Referring Physician: Lex Lyons MD Vital Signs Most recent to 1 oldest [Reference Range]: Peripheral Pulse 76 bpm Rate [60-100 bpm] (05/09/15 2:09 PM) Blood Pressure 116/70 mmHg [90-140/60-90 mmHg] (05/09/15 2:09 PM) Problem List Condition Effective Dates Status [...] Refill(s), Pharmacy: [facility] #[id number], 0.5 tabs Oral Daily Start Date: 05/02/15 Status: Ordered levothyroxine 25 mcg (0.025 mg) oral tablet 25 mcg 1 tabs, Oral, Daily, # 30 tabs, 11 Refill(s), Pharmacy: [facility] #[id number], 1 tabs Oral Daily Start Date: 11/16/14 Status: Ordered Miscellaneous DME DME Item Accu check Lindsay test strips. Test blood sugar one time daily for diabetes type 2. E11.9, See Instructions, # 100 Each, 3 Refill(s), Pharmacy: [facility] #[id number], Accu check Lindsay test strips. Test blood sugar one time daily for mark... Start Date: 01/25/15 Status: Ordered Miscellaneous DME DME Item Accu check Lindsay Lancets. Use to test blood sugar daily for diabetes type 2 E11.9, See Instructions, # 100 Each, 3 Refill(s), Pharmacy: [facility] #[id number], Accu check Lindsay Lancets. Use to test blood sugar daily for diabetes type 2 E11.... Start Date: 01/25/15 Status: Ordered RABEprazole 20 mg oral delayed release tablet 20 mg 1 tabs, Oral, Daily, # 60 tabs, 11 Refill(s), Pharmacy: [facility] # [id number], 1 tabs Oral Daily,x60 days Start Date: [...] adult vaccine 11/15/14 influenza virus vaccine, inactivated 10/29/15 Procedures Procedure Date Related Diagnosis Body Site [...] Visit Note Author: Pedro Gonzalez MD Date: 05/09/15 Assessment/Plan 1.Frequent PVCs 2.Atypical chest pain 3.Dry cough Discussion: Her overnight oxygenis not available yet. Her echocardiogram demonstrates normal systolic performance. There is some clues to diastolic dysfunction. Overall, she seems to be greatly reassured and more comfortable. We advised her to continue on with her current medications and have a follow- up visit. We will awaitthe results of her overnight oxygen levels. She is strongly considering [facility]. 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
--- OUTSIDE RECORDS SUMMARY | 2016-07-21 06:34 | XMS REPORT | Referral Summary ---
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 Role Phone Brijesh Lyons Primary Care Physician [phone] Encounter [facility] [id number] Date(s): 02/19/16 - 02/19/16 [facility], [address] [place] [address] Discharge Diagnosis: Right thyroid nodule Discharge Diagnosis: Well adult exam Discharge Diagnosis: Need for influenza vaccination Discharge Diagnosis: Morbid obesity Discharge Diagnosis: Impaired fasting blood sugar Discharge Diagnosis: Need for hepatitis A vaccination Discharge Diagnosis: Benign essential hypertension Discharge Diagnosis: GILDA on CPAP Discharge Diagnosis: At high risk for pneumonia Discharge Diagnosis: Adult hypothyroidism Discharge Diagnosis: Waldenstrom macroglobulinemia Discharge Diagnosis: GERD (gastroesophageal reflux disease) Discharge Disposition: 01-Home or Self Care Attending Physician: Lex Lyons MD Admitting Physician: Lex Lyons MD Vital Signs Most recent to 1 oldest [Reference Range]: Temperature Tympanic 36.7 degC [36.6-38.1 degC] (02/19/16 7:35 AM) Peripheral Pulse 81 bpm Rate [60-100 bpm] (02/19/16 7:35 AM) Blood Pressure 125/80 mmHg [90-140/60-90 mmHg] (02/19/16 7:35 AM) SpO2 94 % (02/19/16 7:35 AM) Problem List Condition Effective Dates Status [...] TABLET BY MOUTH DAILY, # 30 tabs, 2 Refill(s), eRx: [facility] #[id number], TAKE ONE TABLET BY MOUTH DAILY Start Date: 11/27/15 Status: Ordered Aspirin Low Dose 81 mg, Oral, Daily, 0 Refill(s) Start Date: 07/30/15 Status: Ordered bisoprolol 5 mg oral tablet 2.5 mg 0.5 tabs, Oral, Daily, # 45 tabs, 6 Refill(s), Pharmacy: [facility] #[id number], 0.5 tabs Oral Daily Start Date: 05/02/15 Status: Ordered levothyroxine 25 mcg (0.025 mg) oral tablet See Instructions, TAKE ONE TABLET BY MOUTH DAILY, # 30 tabs, 11 Refill(s), eRx: [facility] #[id number], TAKE ONE TABLET BY MOUTH DAILY Start Date: 11/08/15 Status: Ordered metFORMIN 500 mg oral tablet, extended release See Instructions, 1 tablet oral with supper for 1 week and then 2 with supper daily, # 60 Each, 11 Refill(s), Pharmacy: [facility] #[id number], 1 tablet oral with supper for 1 week and then 2 with supper daily Start Date: 11/02/15 Status: Ordered Miscellaneous DME DME Item Accu check Lindsay test strips. Test blood sugar one time daily for diabetes type 2. E11.9, See Instructions, # 100 Each, 3 Refill(s), Pharmacy: [facility] #[id number], Accu check Lindsay test strips. Test blood sugar one time daily for mark... Start Date: 01/25/15 Status: Ordered Miscellaneous DME DME Item Accu check Lindsay Lancets. Use to test blood sugar daily for diabetes type 2 E11.9, See Instructions, # 100 Each, 3 Refill(s), Pharmacy: [facility] #[id number], Accu check Lindsay Lancets. Use to test blood sugar daily for diabetes type 2 E11.... Start Date: 01/25/15 Status: Ordered RABEprazole 20 mg oral delayed release tablet See Instructions, TAKE ONE TABLET BY MOUTH DAILY, # 60 tabs, eRx: [facility] #[id number], TAKE ONE TABLET BY MOUTH DAILY Start [...] Refill(s) Start Date: 02/19/16 Status: Ordered Results Chemistry Most recent to 1 oldest [Reference Range]: Sodium Lvl [135-144 142 mEq/L mEq/L] (02/19/16 8:58 AM) Potassium Lvl 4.5 mEq/L [3.5-5.2 mEq/L] (02/19/16 8:58 AM) Chloride [99-111 107 mEq/L mEq/L] (02/19/16 8:58 AM) CO2 [22-31 mEq/L] 27 mEq/L (02/19/16 8:58 AM) AGAP [3-20] 8 (02/19/16 8:58 AM) BUN [10-20 mg/dL] 14 mg/dL (02/19/16 8:58 AM) Glucose Lvl [70-99 112 mg/dL mg/dL] *HI* (02/19/16 8:58 AM) Creatinine Lvl 0.78 mg/dL [0.57-1.11 mg/dL] (02/19/16 8:58 AM) eGFR [>60 mL/min] >60 mL/min 1 (02/19/16 8:58 AM) Calcium Lvl 9.4 mg/dL [8.9-10.5 mg/dL] (02/19/16 8:58 AM) Albumin Lvl [3.4-4.8 4.0 gm/dL gm/dL] (02/19/16 8:58 AM) Total Protein 6.7 gm/dL [6.0-7.6 gm/dL] (02/19/16 8:58 AM) Globulin [1.8-4.0 2.7 gm/dL gm/dL] (02/19/16 8:58 AM) ALT [0-55 U/L] 27 U/L (02/19/16 8:58 AM) AST [5-34 U/L] 18 U/L (02/19/16 8:58 AM) Alk Phos [40-150 68 U/L U/L] (02/19/16 8:58 AM) Bili Total [0.2-1.2 0.4 mg/dL mg/dL] (02/19/16 8:58 AM) Chol [0-199 mg/dL] 105 mg/dL (02/19/16 8:58 AM) Trig [0-149 mg/dL] 175 mg/dL *HI* (02/19/16 8:58 AM) HDL [40-84 mg/dL] 33 mg/dL *LOW* (02/19/16 8:58 AM) LDL [0-130 mg/dL] 37 mg/dL (02/19/16 8:58 AM) VLDL Cholesterol 35 mg/dL [0-28 mg/dL] *HI* (02/19/16 8:58 AM) Cardiac Risk 3.2 [0.0-5.0] (02/19/16 8:58 AM) TSH [0.35-4.94] 3.43 (02/19/16 8:58 AM) Hgb A1c [4.1-5.6 %] 5.8 % *HI* (02/19/16 8:58 AM) eAvg Glucose 119.8 mg/dL (02/19/16 8:58 AM) 1Result Comment: Multiply eGFR results by 1.21 for race. Immunizations Vaccine Date Refusal Reason tetanus/diphth/pertuss (Tdap) adult/adol 09/29/05 hepatitis A adult vaccine 02/19/16 hepatitis A adult vaccine 11/15/14 influenza virus vaccine, inactivated 02/19/16 influenza virus vaccine, inactivated 02/08/15 Procedures Procedure Date Related Diagnosis Body Site Collection of venous blood by venipuncture 02/19/16 Biopsy Bone Marrow1 02/23/15 Procedure with Anesthesia2 [...] Patient Education Author: Lex Lyons MD Date: 02/18 Preventive Medicine Heart Disease Prevention Heart disease is a leading cause of . There are many things you can do to help prevent heart disease. BE PHYSICALLY ACTIVE Physical activity is good for your heart. It helps control your blood pressure, cholesterol levels, and weight. Try to be physically active every day. Ask your health care provider what activities are best for you. BE A HEALTHY WEIGHT Extra weight can strain your heart and affect your blood pressure and cholesterol levels. Lose weight with diet and exercise if recommended by your health care provider. EAT HEART-HEALTHY FOODS Follow a healthy eating plan as recommended by your health care provider or dietitian. Heart-healthy foods include: High-fiber foods. These include oat bran, oatmeal, and whole-grain breads and cereals. Fruits and vegetables. Avoid: Alcohol. Fried foods. Foods high in saturated fat. These include meats, butter, whole dairy products, shortening, and coconut or palm oil. Salty foods. These include canned food, luncheon meat, salty snacks, and fast food. KEEP YOUR CHOLESTEROL LEVELS UNDER CONTROL Cholesterol is a substance that is used for many important functions. When your cholesterol levels are high, cholesterol can stick to the insides of your blood vessels, making them narrow or clog. This can lead to chest pain (angina) and a heart attack. Keep your cholesterol levels under control as recommended by your health care provider. Have your cholesterol checked at least once a year. Target cholesterol levels (in mg/dL) for most people are: Total cholesterol below 200. LDL cholesterol below 100. HDL cholesterol above 40 in men and above 50 in women. Triglycerides below 150. KEEP YOUR BLOOD PRESSURE UNDER CONTROL Having high blood pressure (hypertension) puts you at risk for stroke and other forms of heart disease. Keep your blood pressure under control as recommended by your health care provider. Ask your health care provider if you need treatment to lower your blood pressure. If you are 1839 years of age, have your blood pressure checked every 35 years. If you are 40 years of age or older, have your blood pressure checked every year. DO NOT USE TOBACCO PRODUCTS Tobacco smoke can damage your heart and blood vessels. Do not use any tobacco products including cigarettes, chewing tobacco, or electronic cigarettes. If you need help quitting, ask your health care provider. TAKE MEDICINES DIRECTED Take medicines only as directed by your health care provider. Ask your health care provider whether you should take an aspirin every day. Taking aspirin can help reduce your risk of heart disease and stroke. FOR MORE INFORMATION To find out more about heart disease, visit the [place] [employer]'s website at www.americanheart.org This information is not intended to replace advice given to you by your health care provider. Make sure you discuss any questions you have with your health care provider. Document Released: 11/11/2004 Document Revised: 04/20/2015 Document Reviewed: [employer] Interactive Patient Education 2016 [employer] Health Maintenance, Female Adopting a healthy lifestyle and getting preventive care can go a long way to promote health and wellness. Talk with your health care provider about what schedule of regular examinations is right for you. This is a good chance for you to check in with your provider about disease prevention and staying healthy. In between checkups, there are plenty of things you can do on your own. Experts have done a lot of research about which lifestyle changes and preventive measures are most likely to keep you healthy. Ask your health care provider for more information. WEIGHT AND DIET Eat a healthy diet Be sure to include plenty of vegetables, fruits, low-fat dairy products, and lean protein. Do not eat a lot of foods high in solid fats, added sugars, or salt. Get regular exercise. This is one of the most important things you can do for your health. Most adults should exercise for at least 150 minutes each week. The exercise should increase your heart rate and make you sweat (moderate-intensity exercise). Most adults should also do strengthening exercises at least twice a week. This is in addition to the moderate-intensity exercise. Maintain a healthy weight Body mass index (BMI) is a measurement that can be used to identify possible weight problems. It estimates body fat based on height and weight. Your health care provider can help determine your BMI and help you achieve or maintain a healthy weight. For females 20 years of age and older: A BMI below 18.5 is considered underweight. A BMI of 18.5 to 24.9 is normal. A BMI of 25 to 29.9 is considered overweight. A BMI of 30 and above is considered obese. Watch levels of cholesterol and blood lipids You should start having your blood tested for lipids and cholesterol at 20 years of age, then have this test every 5 years. You may need to have your cholesterol levels checked more often if: Your lipid or cholesterol levels are high. You are older than 50 years of age. You are at high risk for heart disease. CANCER SCREENING Lung Cancer Lung cancer screening is recommended for adults 5580 years old who are at high risk for lung cancer because of a history of smoking. A yearly low-dose CT scan of the lungs is recommended for people who: Currently smoke. Have quit within the past 15 years. Have at least a [id number] history of smoking. A pack year is smoking an average of one pack of cigarettes a day for 1 year. Yearly screening should continue until it has been 15 years since you quit. Yearly screening should stop if you develop a health problem that would prevent you from having lung cancer treatment. Breast Cancer Practice breast self-awareness. This means understanding how your breasts normally appear and feel. It also means doing regular breast self-exams. Let your health care provider know about any changes, no matter how small. If you are in your 20s or 30s, you should have a clinical breast exam ( CBE) by a health care provider every 13 years as part of a regular health exam. If you are 40 or older, have a CBE every year. Also consider having a breast X-ray (mammogram) every year. If you have a family history of breast cancer, talk to your health care provider about genetic screening. If you are at high risk for breast cancer, talk to your health care provider about having an MRI and a mammogram every year. Breast cancer gene (BRCA) assessment is recommended for women who have family members with BRCA-related cancers. BRCA-related cancers include: Breast. Ovarian. Tubal. Peritoneal cancers. Results of the assessment will determine the need for genetic counseling and BRCA1 and BRCA2 testing. Cervical Cancer Your health care provider may recommend that you be screened regularly for cancer of the pelvic organs (ovaries, uterus, and vagina). This screening involves a pelvic examination, including checking for microscopic changes to the surface of your cervix (Pap test). You may be encouraged to have this screening done every 3 years, beginning at age 21. For women ages 3065, health care providers may recommend pelvic exams and Pap testing every 3 years, or they may recommend the Pap and pelvic exam, combined with testing for human papilloma virus (HPV), every 5 years. Some types of HPV increase your risk of cervical cancer. Testing for HPV may also be done on women of any age with unclear Pap test results. Other health care providers may not recommend any screening for non women who are considered low risk for pelvic cancer and who do not have symptoms. Ask your health care provider if a screening pelvic exam is right for you. If you have had past treatment for cervical cancer or a condition that could lead to cancer, you need Pap tests and screening for cancer for at least 20 years after your treatment. If Pap tests have been discontinued, your risk factors (such as having a new sexual partner) need to be reassessed to determine if screening should resume. Some women have medical problems that increase the chance of getting cervical cancer. In these cases, your health care provider may recommend more frequent screening and Pap tests. Colorectal Cancer This type of cancer can be detected and often prevented. Routine colorectal cancer screening usually begins at 50 years of age and continues through 75 years of age. Your health care provider may recommend screening at an earlier age if you have risk factors for colon cancer. Your health care provider may also recommend using home test kits to check for hidden blood in the stool. A small camera at the end of a tube can be used to examine your colon directly (sigmoidoscopy or colonoscopy). This is done to check for the earliest forms of colorectal cancer. Routine screening usually begins at age 50. Direct examination of the colon should be repeated every 510 years through 75 years of age. However, you may need to be screened more often if early forms of precancerous polyps or small growths are found. Skin Cancer Check your skin from head to toe regularly. Tell your health care provider about any new moles or changes in moles, especially if there is a change in a mole's shape or color. Also tell your health care provider if you have a mole that is larger than the size of a pencil eraser. Always use sunscreen. Apply sunscreen liberally and repeatedly throughout the day. Protect yourself by wearing long sleeves, pants, a wide-brimmed hat, and sunglasses whenever you are outside. HEART DISEASE, DIABETES, AND HIGH BLOOD PRESSURE High blood pressure causes heart disease and increases the risk of stroke. High blood pressure is more likely to develop in: People who have blood pressure in the high end of the normal range (130 139/8589 mm Hg). People who are overweight or obese. People who are . If you are 1839 years of age, have your blood pressure checked every 3 5 years. If you are 40 years of age or older, have your blood pressure checked every year. You should have your blood pressure measured twiceonce when you are at a hospital or clinic, and once when you are not at a hospital or clinic. Record the average of the two measurements. To check your blood pressure when you are not at a hospital or clinic, you can use: An automated blood pressure machine at a pharmacy. A home blood pressure monitor. If you are between 55 years and 79 years old, ask your health care provider if you should take aspirin to prevent strokes. Have regular diabetes screenings. This involves taking a blood sample to check your fasting blood sugar level. If you are at a normal weight and have a low risk for diabetes, have this test once every three years after 45 years of age. If you are overweight and have a high risk for diabetes, consider being tested at a younger age or more often. PREVENTING INFECTION Hepatitis B If you have a higher risk for hepatitis B, you should be screened for this virus. You are considered at high risk for hepatitis B if: You were born in a country where hepatitis B is common. Ask your health care provider which countries are considered high risk. Your parents were born in a high-risk country, and you have not been immunized against hepatitis B (hepatitis B vaccine). You have HIV or AIDS. You use needles to inject street drugs. You live with someone who has hepatitis B. You have had sex with someone who has hepatitis B. You get hemodialysis treatment. You take certain medicines for conditions, including cancer, organ transplantation, and autoimmune conditions. Hepatitis C Blood testing is recommended for: Everyone born from 1945 through 1965. Anyone with known risk factors for hepatitis C. Sexually transmitted infections (STIs) You should be screened for sexually transmitted infections (STIs) including gonorrhea and chlamydia if: You are sexually active and are younger than 24 years of age. You are older than 24 years of age and your health care provider tells you that you are at risk for this type of infection. Your sexual activity has changed since you were last screened and you are at an increased risk for chlamydia or gonorrhea. Ask your health care provider if you are at risk. If you do not have HIV, but are at risk, it may be recommended that you take a prescription medicine daily to prevent HIV infection. This is called pre- exposure prophylaxis (PrEP). You are considered at risk if: You are sexually active and do not regularly use condoms or know the HIV status of your partner(s). You take drugs by injection. You are sexually active with a partner who has HIV. Talk with your health care provider about whether you are at high risk of being infected with HIV. If you choose to begin PrEP, you should first be tested for HIV. You should then be tested every 3 months for as long as you are taking PrEP. If you are premenopausal and you may become , ask your health care provider about preconception counseling. If you may become , take 400 to 800 micrograms (mcg) of folic acid every day. If you want to prevent , talk to your health care provider about control (contraception). OSTEOPOROSIS AND MENOPAUSE Osteoporosis is a disease in which the bones lose minerals and strength with aging. This can result in serious bone fractures. Your risk for osteoporosis can be identified using a bone density scan. If you are 65 years of age or older, or if you are at risk for osteoporosis and fractures, ask your health care provider if you should be screened. Ask your health care provider whether you should take a calcium or vitamin D supplement to lower your risk for osteoporosis. Menopause may have certain physical symptoms and risks. Hormone replacement therapy may reduce some of these symptoms and risks. Talk to your health care provider about whether hormone replacement therapy is right for you. HOME CARE INSTRUCTIONS Schedule regular health, dental, and eye exams. Stay current with your immunizations. Do not use any tobacco products including cigarettes, chewing tobacco, or electronic cigarettes. If you are , do not drink alcohol. If you are , limit how much and how often you drink alcohol. Limit alcohol intake to no more than 1 drink per day for non women. One drink equals 12 ounces of beer, 5 ounces of wine, or 1 ounces of hard liquor. Do not use street drugs. Do not share needles. Ask your health care provider for help if you need support or information about quitting drugs. Tell your health care provider if you often feel depressed. Tell your health care provider if you have ever been abused or do not feel safe at home. This information is not intended to replace advice given to you by your health care provider. Make sure you discuss any questions you have with your health care provider. Document Released: 10/13/2011 Document Revised: 04/20/2015 Document Reviewed: [employer] Interactive Patient Education 2016 [employer] No follow up information was provided. Extracted from: Title: Female Physical Author: Lex Lyons MD Date: 02/19/16 Impression and Plan Diagnosis Adult hypothyroidism (SAF44-CG E03.9, Discharge, Medical). At high risk for pneumonia (BRB37-HK Z91.89, Discharge, Medical). Benign essential hypertension (AML28-BX I10, Discharge, Medical). GERD (gastroesophageal reflux disease) (XIT81-DG K21.9, Discharge, Medical). Impaired fasting blood sugar (TVX41-QH R73.01, Discharge, Medical). Morbid obesity (IHN25-VI E66.01, Discharge, Medical). Need for hepatitis A vaccination (XZF74-GE Z23, Discharge, Medical). Need for influenza vaccination (QEA88-YP Z23, Discharge, Medical). GILDA on CPAP (REA53-EX G47.33, Discharge, Medical). Right thyroid nodule (LQX60-KA E04.1, Discharge, Medical). Waldenstrom macroglobulinemia (GWA84-FL C88.0, Discharge, Medical). Well adult exam (XNI09-CZ Z00.00, Discharge, Medical). Plan: 1) Fasting lab ordered., 2) Schedule screening mammograms at the hospital. 3) Continue your present meds. 4) Schedule a thyroid ultrasound at the lab desk for March. 5) Healthy diet and daily exercise helps most things. 6) See me in 6 months and as needed. 7) Several immunizations ordered today. 8) Pap smear done today. . Orders Orders (Selected) Outpatient Orders Ordered Periodic Comp Preventive Med 65+ years Est [address]: hepatitis A adult vaccine 1440 units/mL preservative free intramuscular suspension: 1 mL, IntraMuscular, Once influenza virus vaccine, inactivated: 0.5 mL, IntraMuscular, Once pneumococcal 13-valent conjugate vaccine: 0.5 mL, IntraMuscular, Once Future (On Hold) CMP: Fasting Lipid Profile: Hgb A1c: Routine Urinalysis: TSH 3rd Generation: US Thyroid: . Dx/Order Association Plan: Diagnosis: Adult hypothyroidism Comment: Diagnosis: At high risk for pneumonia Comment: Ordered: pneumococcal 13-valent conjugate vaccine; 0.5 mL, IntraMuscular, Once, First Dose: 02/19/16 9:00:00 [employer]ESS[employer]ANG[employer], Stop Date: 02/19/16 9:00: 00 [employer]ANG[employer] Diagnosis: Benign essential hypertension Comment: Diagnosis: GERD (gastroesophageal reflux disease) Comment: Diagnosis: Impaired fasting blood sugar Comment: Diagnosis: Morbid obesity Comment: Diagnosis: Need for hepatitis A vaccination Comment: Ordered: hepatitis A adult vaccine 1440 units/mL preservative free intramuscular suspension; 1 mL, IntraMuscular, Once, First Dose: 02/19/16 9 :00:00 [employer]ANG[employer], Stop Date: 02/19/16 9:00:00 [employer], Form: Vial influenza virus vaccine, inactivated; 0.5 mL, IntraMuscular, Once, First Dose: 02/19/16 8:12:00 [employer]ESS[employer], Stop Date: 02/19/16 8:12: 00 [employer]ESS[employer] Diagnosis: Need for influenza vaccination Comment: Diagnosis: GILDA on CPAP Comment: Diagnosis: Right thyroid nodule Comment: Diagnosis: Waldenstrom macroglobulinemia Comment: Diagnosis: Well adult exam Comment: Ordered: pneumococcal 13-valent conjugate vaccine; 0.5 mL, IntraMuscular, Once, First Dose: 02/19/16 9:00:00 PROFESS[employer]ANG[employer], Stop Date: 02/19/16 9:00: 00 PROFESS[employer]ANG[employer] hepatitis A adult vaccine 1440 units/mL preservative free intramuscular suspension; 1 mL, IntraMuscular, Once, First Dose: 02/19/16 9:00:00 PROFESS[employer], Stop Date: 02/19/16 9:00:00 PROFESS[employer]ANG[employer], Form: Vial influenza virus vaccine, inactivated; 0.5 mL, IntraMuscular, Once, First Dose: 02/19/16 8:12:00 PROFESS[employer], Stop Date: 02/19/16 8:12: 00 PROFESS[employer]ANG[employer] Periodic [facility] Preventive Med 65+ years Est [address]; 02/19/16 8:10:00 PROFESSOR [employer]ANG[employer], Well adult exam Diagnosis: Benign essential hypertension Comment: Diagnosis: Well adult exam Comment: Diagnosis: Morbid obesity Comment: Diagnosis: Benign essential hypertension Comment: Diagnosis: Well adult exam Comment: Diagnosis: Right thyroid nodule Comment: Diagnosis: Adult hypothyroidism Comment: Diagnosis: Morbid obesity Comment: Diagnosis: Well adult exam Comment: Diagnosis: Impaired fasting blood sugar Comment: Diagnosis: Adult hypothyroidism Comment: Diagnosis: Well adult exam Comment: Diagnosis: Adult hypothyroidism Comment: Diagnosis: Benign essential hypertension Comment: Diagnosis: Well adult exam Comment: Diagnosis: Impaired fasting blood sugar Comment: Additional Orders: Comment: Ordered: Voltaren 1% topical gel,4 gms, Topical, QID, as needed for left knee pain, # 100 g, 0 Refill(s) End of Orders .
--- OUTSIDE RECORDS SUMMARY | 2016-07-21 06:34 | XMS REPORT | Referral Summary ---
Author Author [facility] [place] Organization [facility] [place] Address Unknown Phone Unavailable Care Team Providers Care Graphic Art Sales Representative Name Role Phone Brijesh Lyons Primary Care Physician [phone] Encounter Date(s): 07/11/15 - 07/11/15 [facility] [place] [address] [facility] [place] [address] Discharge Diagnosis: HTN (hypertension) Discharge Diagnosis: Chest pain Discharge Diagnosis: Arrhythmia Discharge Diagnosis: Abnormal pulse oximetry Discharge Disposition: 01-Home or Self Care Attending Physician: Arsenio Torres MD Admitting Physician: Arsenio Torres MD Referring Physician: Pedro Gonzalez MD Vital Signs Most recent to 1 oldest [Reference Range]: Peripheral Pulse 74 bpm Rate [60-100 bpm] (07/11/15 8:19 AM) Blood Pressure 128/78 mmHg [90-140/60-90 mmHg] (07/11/15 8:19 AM) SpO2 94 % (07/11/15 8:19 AM) Problem List Condition Effective Dates [...] Daily, # 30 tabs, 1 Refill(s), Pharmacy: [facility] # [id number], 1 tabs Oral Daily Start Date: 05/25/15 Status: Ordered bisoprolol 5 mg oral tablet 2.5 mg 0.5 tabs, Oral, Daily, # 45 tabs, 6 Refill(s), Pharmacy: [facility] #[id number], 0.5 tabs Oral Daily Start Date: 05/02/15 Status: Ordered levothyroxine 25 mcg (0.025 mg) oral tablet 25 mcg 1 tabs, Oral, Daily, # 30 tabs, 11 Refill(s), Pharmacy: [facility] #[id number], 1 tabs Oral Daily Start Date: 11/16/14 Status: Ordered Miscellaneous DME DME Item Accu check Lindsay test strips. Test blood sugar one time daily for diabetes type 2. E11.9, See Instructions, # 100 Each, 3 Refill(s), Pharmacy: [facility] #[id number], Accu check Lindsay test strips. Test blood sugar one time daily for mark... Start Date: 01/25/15 Status: Ordered Miscellaneous DME DME Item Accu check Lindsay Lancets. Use to test blood sugar daily for diabetes type 2 E11.9, See Instructions, # 100 Each, 3 Refill(s), Pharmacy: [facility] #[id number], Accu check Lindsay Lancets. Use to test blood sugar daily for diabetes type 2 E11.... Start Date: 01/25/15 Status: Ordered RABEprazole 20 mg oral delayed release tablet 20 mg 1 tabs, Oral, Daily, # 60 tabs, 11 Refill(s), Pharmacy: [facility] # [id number], 1 tabs Oral Daily,x60 days Start Date: [...] from: Title: Office Visit Note Author: Arsenio Torres MD Date: 07/11/15 Assessment/Plan 1.Abnormal pulse oximetry 2.HTN (hypertension) 3.Chest pain 4.Arrhythmia This 65-year-old female recently had abnormal overnight oximetry showing repeated desaturations and this is concerning forobstructive sleep apnea, amongst other sleep disordered breathing concerns. She has biometric findings typically seen in obstructive sleep apnea as well. She has hypertension chest pain and arrhythmia as risk factorsto warrant in lab attended PSG and the study would be requested as a split protocol to facilitate a treatment phase should she have severe findings. My concerns arefor the patient and her . They expressedappropriate interest and askedinsightful questions. She will follow-up after results are known. Insert closely
--- OUTSIDE RECORDS SUMMARY | 2016-07-21 06:34 | XMS REPORT | Referral Summary ---
Author Author [facility] Organization [facility] Address Unknown Phone Unavailable Care Team Providers Care Home Support Worker Name Role Phone Brijesh Lyons Primary Care Physician [phone] Encounter Date(s): 03/10/16 - 03/10/16 [facility] [place], [facility] [address] [place] [address] Discharge Diagnosis: Severe obstructive sleep apnea Discharge Disposition: 01-Home or Self Care Attending Physician: Suzanne Russo Admitting Physician: Suzanne Russo Vital Signs Most recent to 1 oldest [Reference Range]: Peripheral Pulse 92 bpm Rate [60-100 bpm] (03/10/16 11:29 AM) Blood Pressure 140/80 mmHg [90-140/60-90 mmHg] (03/10/16 11:29 AM) SpO2 95 % (03/10/16 11:29 AM) Problem List Condition Effective Dates Status [...] DAILY, # 30 tabs, 5 Refill(s), eRx: [facility] #[id number], TAKE ONE TABLET BY MOUTH DAILY Start Date: 02/21/16 Status: Ordered Aspirin Low Dose 81 mg, Oral, Daily, 0 Refill(s) Start Date: 07/30/15 Status: Ordered bisoprolol 5 mg oral tablet 2.5 mg 0.5 tabs, Oral, Daily, # 45 tabs, 6 Refill(s), Pharmacy: [facility] #[id number], 0.5 tabs Oral Daily Start Date: 05/02/15 Status: Ordered levothyroxine 25 mcg (0.025 mg) oral tablet See Instructions, TAKE ONE TABLET BY MOUTH DAILY, # 30 tabs, 11 Refill(s), eRx: [facility] #[id number], TAKE ONE TABLET BY MOUTH DAILY Start Date: 11/08/15 Status: Ordered metFORMIN 500 mg oral tablet, extended release See Instructions, 1 tablet oral with supper for 1 week and then 2 with supper daily, # 60 Each, 11 Refill(s), Pharmacy: [facility] #[id number], 1 tablet oral with supper for 1 week and then 2 with supper daily Start Date: 11/02/15 Status: Ordered Miscellaneous DME DME Item Accu check Lindsay test strips. Test blood sugar one time daily for diabetes type 2. E11.9, See Instructions, # 100 Each, 3 Refill(s), Pharmacy: [facility] #[id number], Accu check Lindsay test strips. Test blood sugar one time daily for mark... Start Date: 01/25/15 Status: Ordered Miscellaneous DME DME Item Accu check Lindsay Lancets. Use to test blood sugar daily for diabetes type 2 E11.9, See Instructions, # 100 Each, 3 Refill(s), Pharmacy: [facility] #[id number], Accu check Lindsay Lancets. Use to test blood sugar daily for diabetes type 2 E11.... Start Date: 01/25/15 Status: Ordered RABEprazole 20 mg oral delayed release tablet See Instructions, TAKE ONE TABLET BY MOUTH DAILY, # 60 tabs, [facility]Rx: [facility] #[id number], TAKE ONE TABLET BY MOUTH DAILY Start [...] Extracted from: Title: Office Visit Note Author: Suzanne Russo PA-C Date: 03/10/16 Assessment/Plan 1.Severe obstructive sleep apnea - Adequate treatment with CPAP symptomatically and objectively at current pressure withexcellent adherence to therapy. Continue CPAP with all sleep at 10cm. Supplies as needed. -CPAP download reviewed with the patient and patient is complying with and benefitting from treatment. -Avoid driving , partaking in hazardous activities, or operating heavy machinery if drowsy. -Continue appropriate cleaning of the machine/humidifier and update of all supplies including mask , tubing , and filters . -Return for follow-up in 1 year with RT . Return/call sooner if any problems arise in the meantime.
--- OUTSIDE RECORDS SUMMARY | 2016-07-21 06:34 | XMS REPORT | Referral Summary ---
Author Author [facility] Organization [facility] Address Unknown Phone Unavailable Care Team Providers Care Second Grade Teacher Name Role Phone Brijesh Lyons Primary Care Physician [phone] Encounter VC Date(s): 03/24/16 - 03/24/16 [facility] [address] [place] [address] [place] [address] [facility] Discharge Diagnosis: Tinnitus Discharge Diagnosis: Bilateral sensorineural hearing loss Discharge Disposition: 01-Home or Self Care Attending Physician: Zuleika Orta Admitting Physician: Zuleika Orta Vital Signs No data available for this [...] DAILY, # 30 tabs, 5 Refill(s), eRx: [facility] #[id number], TAKE ONE TABLET BY MOUTH DAILY Start Date: 02/21/16 Status: Ordered Aspirin Low Dose 81 mg, Oral, Daily, 0 Refill(s) Start Date: 07/30/15 Status: Ordered bisoprolol 5 mg oral tablet 2.5 mg 0.5 tabs, Oral, Daily, # 45 tabs, 6 Refill(s), Pharmacy: [facility] #[id number], 0.5 tabs Oral Daily Start Date: 05/02/15 Status: Ordered cyclobenzaprine 10 mg oral tablet 10 mg 1 tabs, Oral, TID, as needed for spasm, # 30 tabs, 0 Refill(s) Start Date: 03/14/16 Status: Ordered levothyroxine 25 mcg (0.025 mg) oral tablet See Instructions, TAKE ONE TABLET BY MOUTH DAILY, # 30 tabs, 11 Refill(s), eRx: [facility] #[id number], TAKE ONE TABLET BY MOUTH DAILY Start Date: 11/08/15 Status: Ordered metFORMIN 500 mg oral tablet, extended release See Instructions, 1 tablet oral with supper for 1 week and then 2 with supper daily, # 60 Each, 11 Refill(s), Pharmacy: [facility] #[id number], 1 tablet oral with supper for 1 week and then 2 with supper daily Start Date: 11/02/15 Status: Ordered Miscellaneous DME DME Item Accu check Lindsay test strips. Test blood sugar one time daily for diabetes type 2. E11.9, See Instructions, # 100 Each, 3 Refill(s), Pharmacy: [facility] #[id number], Accu check Lindsay test strips. Test blood sugar one time daily for mark... Start Date: 01/25/15 Status: Ordered Miscellaneous DME DME Item Accu check Lindsay Lancets. Use to test blood sugar daily for diabetes type 2 E11.9, See Instructions, # 100 Each, 3 Refill(s), Pharmacy: [facility] #[id number], Accu check Lindsay Lancets. Use to test [...] BY MOUTH DAILY, # 60 tabs, eRx: [facility] #[id number], TAKE ONE TABLET BY MOUTH DAILY Start [...]
--- OUTSIDE RECORDS SUMMARY | 2016-07-21 06:34 | XMS REPORT | Referral Summary ---
Author Author [facility] Organization [facility] Address Unknown Phone Unavailable Care Team Providers Care Motorcycle Police Name Role Phone Brijesh Lyons Primary Care Physician [phone] Encounter VC Date(s): 10/29/15 - 10/29/15 [facility] [place], [address] [place] [address] [place] Discharge Disposition: 01-Home or Self Care Attending Physician: Lex Lyons MD Admitting Physician: Lex Lyons MD Vital Signs Most recent to 1 oldest [Reference Range]: Temperature Tympanic 36.2 degC [36.6-38.1 degC] *LOW* (10/29/15 8:34 AM) Peripheral Pulse 80 bpm Rate [60-100 bpm] (10/29/15 8:34 AM) Blood Pressure 146/70 mmHg [90-140/60-90 mmHg] *HI* (10/29/15 8:34 AM) SpO2 95 % (10/29/15 8:34 AM) Problem List Condition Effective Dates Status [...] DAILY, # 30 tabs, 3 Refill(s), eRx: [facility] #[id number], TAKE ONE TABLET BY MOUTH DAILY Start Date: 07/19/15 Status: Ordered Aspirin Low Dose 81 mg, Oral, Daily, 0 Refill(s) Start Date: 07/30/15 Status: Ordered Benadryl See Instructions, Given IV prior to Rituxan, 0 Refill(s) Start Date: 10/16/15 Status: Ordered bisoprolol 5 mg oral tablet 2.5 mg 0.5 tabs, Oral, Daily, # 45 tabs, 6 Refill(s), Pharmacy: [facility] #[id number], 0.5 tabs Oral Daily Start Date: 05/02/15 Status: Ordered doxycycline hyclate 100 mg oral tablet 100 mg 1 tabs, Oral, BID, X 30 days, # 60 tabs, 0 Refill(s), Pharmacy: [facility] #[id number], 1 tabs Oral BID,x30 days Start Date: 10/23/15 Stop Date: 11/22/15 Status: Ordered levothyroxine 25 mcg (0.025 mg) oral tablet 25 mcg 1 tabs, Oral, Daily, # 30 tabs, 11 Refill(s), Pharmacy: [facility] #[id number], 1 tabs Oral Daily Start Date: 11/16/14 Status: Ordered Miscellaneous DME DME Item Accu check Lindsay test strips. Test blood sugar one time daily for diabetes type 2. E11.9, See Instructions, # 100 Each, 3 Refill(s), Pharmacy: [facility] #[id number], Accu check Lindsay test strips. Test blood sugar one time daily for mark... Start Date: 01/25/15 Status: Ordered Miscellaneous DME DME Item Accu check Lindsay Lancets. Use to test blood sugar daily for diabetes type 2 E11.9, See Instructions, # 100 Each, 3 Refill(s), Pharmacy: [facility] #[id number], Accu check Lindsay Lancets. Use to test [...] Patient Education Author: Lex Lyons MD Date: 10/28 Family Medicine Esophagitis Esophagitis is inflammation of the esophagus. It can involve swelling, soreness , and pain in the esophagus. This condition can make it difficult and painful to swallow. CAUSES Most causes of esophagitis are not serious. Many different factors can cause esophagitis, including: Gastroesophageal reflux disease (GERD). This is when acid from your stomach flows up into the esophagus. Recurrent vomiting. An allergic-type reaction. Certain medicines, especially those that come in large pills. Ingestion of harmful chemicals, such as household cleaning products. Heavy alcohol use. An infection of the esophagus. Radiation treatment for cancer. Certain diseases such as sarcoidosis, Crohn's disease, and scleroderma. These diseases may cause recurrent esophagitis. SYMPTOMS Trouble swallowing. Painful swallowing. Chest pain. Difficulty breathing. Nausea. Vomiting. Abdominal pain. DIAGNOSIS Your caregiver will take your history and do a physical exam. Depending upon what your caregiver finds, certain tests may also be done, including: Barium X-ray. You will drink a solution that coats the esophagus, and X- rays will be taken. Endoscopy. A lighted tube is put down the esophagus so your caregiver can examine the area. Allergy tests. These can sometimes be arranged through follow-up visits. TREATMENT Treatment will depend on the cause of your esophagitis. In some cases, steroids or other medicines may be given to help relieve your symptoms or to treat the underlying cause of your condition. Medicines that may be recommended include: Viscous lidocaine, to soothe the esophagus. Antacids. Acid reducers. Proton pump inhibitors. Antiviral medicines for certain viral infections of the esophagus. Antifungal medicines for certain fungal infections of the esophagus. Antibiotic medicines, depending on the cause of the esophagitis. HOME CARE INSTRUCTIONS Avoid foods and drinks that seem to make your symptoms worse. Eat small, frequent meals instead of large meals. Avoid eating for the 3 hours prior to your bedtime. If you have trouble taking pills, use a pill splitter to decrease the size and likelihood of the pill getting stuck or injuring the esophagus on the way down. Drinking water after taking a pill also helps. Stop smoking if you smoke. Maintain a healthy weight. Wear loose-fitting clothing. Do not wear anything tight around your waist that causes pressure on your stomach. Raise the head of your bed 6 to 8 inches with wood blocks to help you sleep. Extra pillows will not help. Only take [id number] or prescription medicines as directed by your caregiver. SEEK IMMEDIATE MEDICAL CARE IF: You have severe chest pain that radiates into your arm, neck, or jaw. You feel sweaty, dizzy, or lightheaded. You have shortness of breath. You vomit blood. You have difficulty or pain with swallowing. You have bloody or black, tarry stools. You have a fever. You have a burning sensation in the chest more than 3 times a week for more than 2 weeks. You cannot swallow, drink, or eat. You drool because you cannot swallow your saliva. MAKE SURE YOU: Understand these instructions. Will watch your condition. Will get help right away if you are not doing well or get worse. This information is not intended to replace advice given to you by your health care provider. Make sure you discuss any questions you have with your health care provider. Document Released: 05/07/2005 Document Revised: 04/20/2015 Document Reviewed: [employer] Patient Information 2016 [employer] (formerly [employer]). No follow up information was provided. Extracted from: Title: GERD, HTN, morbid obesity Author: Lex Lyons MD Date: 10/29/15 Impression and Plan Diagnosis Chronic ethmoidal sinusitis (ECA34-LY J32.2, Working, Medical). Waldenstrom macroglobulinemia (BPS24-UI C88.0, Working, Medical). Impaired fasting blood sugar (LSL83-YU R73.01, Working, Medical). GERD (gastroesophageal reflux disease) (WVU76-VP K21.9, Working, Medical). Morbid obesity (UKG77-AE E66.01, Working, Medical). Benign essential hypertension (WLX59-JF I10, Working, Medical). Adult hypothyroidism (CGJ65-JK E03.9, Working, Medical). GILDA on CPAP (EFN16-DG G47.33, Working, Medical). Plan: 1) Lab within one week. 2) Healthy diet and daily exercise helps most things. 3) Restart your Rabeprazole daily for GERD. 4) Continue your present meds otherwise. 5) Handicapped parking application filled out. 6) See me in 4 months and as needed.. Orders Orders (Selected) Outpatient Orders Ordered Office Visit Level 4 Est 40430: Future (On Hold) Hgb A1c: TSH 3rd Generation: . Dx/Order Association Plan: Diagnosis: Adult hypothyroidism Comment: Ordered: Office Visit Level 4 Est 74266; 10/29/15 8:55:00 CDT, Benign essential hypertension | Chronic ethmoidal sinusitis | Impaired fasting blood sugar | Adult hypothyroidism | Waldenstrom macroglobulinemia Diagnosis: Benign essential hypertension Comment: Ordered: Office Visit Level 4 Est 98490; 10/29/15 8:55:00 CDT, Benign essential hypertension | Chronic ethmoidal sinusitis | Impaired fasting blood sugar | Adult hypothyroidism | Waldenstrom macroglobulinemia Diagnosis: Chronic ethmoidal sinusitis Comment: Ordered: Office Visit Level 4 Est 59724; 10/29/15 8:55:00 CDT, Benign essential hypertension | Chronic ethmoidal sinusitis | Impaired fasting blood sugar | Adult hypothyroidism | Waldenstrom macroglobulinemia Diagnosis: GERD (gastroesophageal reflux disease) Comment: Diagnosis: Impaired fasting blood sugar Comment: Ordered: Office Visit Level 4 Est 01333; 10/29/15 8:55:00 CDT, Benign essential hypertension | Chronic ethmoidal sinusitis | Impaired fasting blood sugar | Adult hypothyroidism | Waldenstrom macroglobulinemia Diagnosis: Morbid obesity Comment: Diagnosis: GILDA on CPAP Comment: Diagnosis: Waldenstrom macroglobulinemia Comment: Ordered: Office Visit Level 4 Est 19894; 10/29/15 8:55:00 CDT, Benign essential hypertension | Chronic ethmoidal sinusitis | Impaired fasting blood sugar | Adult hypothyroidism | Waldenstrom macroglobulinemia Diagnosis: Adult hypothyroidism Comment: Diagnosis: Impaired fasting blood sugar Comment: End of Orders ."
--- OUTSIDE RECORDS SUMMARY | 2016-07-21 06:34 | XMS REPORT | Referral Summary ---
Author Author [facility] Organization [facility] Address Unknown Phone Unavailable Care Team Providers Care Coring Machine Operator Name Role Phone Brijesh Lyons Primary Care Physician [phone] Encounter Date(s): 11/29/15 - 11/29/15 [facility] [place], [facility] [address] [place] [address] Discharge Diagnosis: Severe obstructive sleep apnea Discharge Disposition: 01-Home or Self Care Attending Physician: Suzanne Russo Admitting Physician: Suzanne Russo Vital Signs Most recent to 1 oldest [Reference Range]: Peripheral Pulse 76 bpm Rate [60-100 bpm] (11/29/15 11:08 AM) Blood Pressure 132/78 mmHg [90-140/60-90 mmHg] (11/29/15 11:08 AM) SpO2 94 % (11/29/15 11:08 AM) Problem List Condition Effective Dates Status [...] DAILY, # 30 tabs, 2 Refill(s), eRx: [facility] #[id number], TAKE ONE TABLET BY MOUTH DAILY Start Date: 11/27/15 Status: Ordered Aspirin Low Dose 81 mg, Oral, Daily, 0 Refill(s) Start Date: 07/30/15 Status: Ordered bisoprolol 5 mg oral tablet 2.5 mg 0.5 tabs, Oral, Daily, # 45 tabs, 6 Refill(s), Pharmacy: [facility] #[id number], 0.5 tabs Oral Daily Start Date: 05/02/15 Status: Ordered levothyroxine 25 mcg (0.025 mg) oral tablet See Instructions, TAKE ONE TABLET BY MOUTH DAILY, # 30 tabs, 11 Refill(s), eRx: [facility] #[id number], TAKE ONE TABLET BY MOUTH DAILY Start Date: 11/08/15 Status: Ordered metFORMIN 500 mg oral tablet, extended release See Instructions, 1 tablet oral with supper for 1 week and then 2 with supper daily, # 60 Each, 11 Refill(s), Pharmacy: [facility] #[id number], 1 tablet oral with supper for 1 week and then 2 with supper daily Start Date: 11/02/15 Status: Ordered Miscellaneous DME DME Item Accu check Lindsay test strips. Test blood sugar one time daily for diabetes type 2. E11.9, See Instructions, # 100 Each, 3 Refill(s), Pharmacy: [facility] #[id number], Accu check Lindsay test strips. Test blood sugar one time daily for mark... Start Date: 01/25/15 Status: Ordered Miscellaneous DME DME Item Accu check Lindsay Lancets. Use to test blood sugar daily for diabetes type 2 E11.9, See Instructions, # 100 Each, 3 Refill(s), Pharmacy: [facility] #[id number], Accu check Lindsay Lancets. Use to test [...] Title: Office Visit Note Author: Suzanne Russo Date: 11/29/15 Assessment/Plan 1.Severe obstructive sleep apnea - Adequate treatment with CPAP symptomatically and objectivelyat current pressure withexcellent adherence to therapy. She does have borderline residual apneas and will increase her pressure to 10cm. Continue CPAP with all sleep at 10cm. -CPAP download reviewed with the patient and patient is complying with and benefitting from treatment. -Avoid driving , partaking in hazardous activities, or operating heavy machinery if drowsy. -Continue appropriate cleaning of the machine/humidifier and update of all supplies including mask , tubing , and filters . -Return for follow-up in 3 months for recheck on new pressure. Return/call sooner if any problems arise in the meantime.
--- OUTSIDE RECORDS SUMMARY | 2016-07-21 06:34 | XMS REPORT | Referral Summary ---
Author Author [facility] Organization [facility] Address Unknown Phone Unavailable Care Team Providers Care Employment Manager Name Role Phone Brijesh Lyons Primary Care Physician [phone] Encounter Date(s): 07/30/15 - 07/30/15 [facility], [facility] [address] [place] [address] Discharge Disposition: 01-Home or Self Care [...] # 30 tabs, 3 Refill(s), eRx: [facility] #[id number], TAKE ONE TABLET BY MOUTH DAILY Start Date: 07/19/15 Status: Ordered Aspirin Low Dose 81 mg, Oral, Daily, 0 Refill(s) Start Date: 07/30/15 Status: Ordered bisoprolol 5 mg oral tablet 2.5 mg 0.5 tabs, Oral, Daily, # 45 tabs, 6 Refill(s), Pharmacy: [facility] #[id number], 0.5 tabs Oral Daily Start Date: 05/02/15 Status: Ordered levothyroxine 25 mcg (0.025 mg) oral tablet 25 mcg 1 tabs, Oral, Daily, # 30 tabs, 11 Refill(s), Pharmacy: [facility] #[id number], 1 tabs Oral Daily Start Date: 11/16/14 Status: Ordered Miscellaneous DME DME Item Accu check Lindsay test strips. Test blood sugar one time daily for diabetes type 2. E11.9, See Instructions, # 100 Each, 3 Refill(s), Pharmacy: [facility] #[id number], Accu check Lindsay test strips. Test blood sugar one time daily for mark... Start Date: 01/25/15 Status: Ordered Miscellaneous DME DME Item Accu check Lindsay Lancets. Use to test blood sugar daily for diabetes type 2 E11.9, See Instructions, # 100 Each, 3 Refill(s), Pharmacy: [facility] #[id number], Accu check Lindsay Lancets. Use to test blood sugar daily for diabetes type 2 E11.... Start Date: 01/25/15 Status: Ordered nystatin 100,000 units/mL oral suspension 500,000 units 5 mL, Oral, QID, swish and swallow, X 14 days, # 280 mL, 0 Refill( s), Pharmacy: [facility] #[id number], 5 mL Oral QID,x14 days,Instr:swish and swallow [...]
[2016-07-21 06:38] VITALS: Ht 167.6 cm; Wt 151.7 kg
[2016-07-21 06:41] VITALS: BP 147/81; PULSE 69; RESP 18; TEMP 98; O2SAT 94
[2016-07-21] MEDS ORDERED: PROPOFOL 500mg 50 ML IV ONE (06:58)
[2016-07-21] MEDS ORDERED: LIDOCAINE 1% (10mg/ml) 2ml SDV INJ ONE (07:00)
[2016-07-21] MEDS ORDERED: LR 1,000 ML IV SCH (07:00)
--- NOTE | 2016-07-21 07:18 | ANESPREOP ---
Anesthesia Record Date and Time DATE: 07/21/16 TIME: 07:17 Pre-Op Diagnosis change in bowel habits Proposed Surgical Procedure COLONOSCOPY NPO since: 2199 Allergies: Coded Allergies: citalopram (Verified Allergy, Unknown, 07/21/16) tramadol (Verified Adverse Reaction, Mild, NAUSEA, 07/21/16) lisinopril (Verified Adverse Reaction, Unknown, cough, racing heart beat, 07/21/16) pantoprazole (Verified Adverse Reaction, Unknown, worsened coughing, ) Ht/Wt/BMI Height: 5 ' 6.00 " Weight: 151.700 kg BMI: 54.0 kg/m2 Vital Signs Date Time Temp Pulse Resp B/P Pulse Ox O2 Delivery O2 Flow Rate FiO2 07/21/16 06:41 98.0 69 18 147/81 94 Room Air Medications Inpatient Medications Current Medications Medications (Trade) Dose Ordered Sig/You Start Time Stop Time Status Last Admin Dose Admin Lactated Ringer's (Lactated Ringers) 1,000 ml @ 30 mls/hr Q24H 07/21/16 07:00 07/21/16 07:06 30 MLS/HR Acetaminophen (Tylenol Extra Strength) 500 Mg Tablet, 1-2 TAB PO Q6H PRN for PAIN/FEVER, (Reported) Last Taken: on 07/20/16 2230 Amlodipine Besylate (Amlodipine Besylate) 5 Mg Tablet, 1 TAB PO 2PM, (Reported) Last Taken: on 07/20/16 1400 Aspirin (Aspir 81) 81 Mg Tablet.dr, 1 TAB PO DAILY, (Reported) Last Taken: on 07/19/16 0800 Bisoprolol Fumarate (Bisoprolol Fumarate) 5 Mg Tablet, 0.5 TAB PO 2PM, (Reported) Last Taken: on 07/20/16 1400 Cholecalciferol (Vitamin D3) (Vitamin D-3) 2, 000 Unit Tablet, 1 TAB PO DAILY, (Reported) Last Taken: on 07/19/16 0800 Levothyroxine Sodium (Levothyroxine Sodium) 25 Mcg Tablet, 1 TAB PO DAILY, (Reported) Last Taken: on 07/21/16 0515 Metformin HCl (Metformin HCl ER) 500 Mg Tab.er.24h, 1 TAB PO BID, (Reported) Last Taken: on 07/20/16 1800 Rabeprazole Sodium (Rabeprazole Sodium) 20 Mg Tablet.dr, 20 MG PO ACB, (Reported) Take 1 tablet, by mouth, 1 a day before breakfast. Last Taken: on 07/20/16 2100 Discontinued Medications Acetaminophen (Tylenol) 325 Mg Tablet, 1-2 TAB PO QID PRN for PAIN, (Reported) Currently on Beta Dev: Yes Beta Dev Last Taken: BISPROLOL 07/20/16 @ 1400 Medical/Surgical History Anesthesia PMH: Reports: *Angina (HX. 2000 PER H&P), *Diabetes, *Hypertension ( PER H&P), Arthritis (OA), Cancer (LYMPHOMA ), Obesity, Reflux (PER H&P), Sleep Apnea, Thyroid Disease (hypo. per h&p), Denies: *AL, Anesthesia Reactions (NO AIRWAY ISSUES), Blood Transfusion Reac, CHF, Deep Vein Thrombosis, Glaucoma, Hepatitis, Hiatal Hernia, Malignant Hyperthermia, Rheumatic Fever Smoking Status: Never smoker Has pt. smoked today?: No Use Chewing Tobacco?: No Second Hand Exposure: No Substance Use Type: does not use Alcohol Intake: none HX of Last Menstrual Period: YEARS AGO AGE 50 Past Surgical History Orthopedic Surgeries: Yes - BONE MARROW BIOPSY PER H&P Abdominal Surgeries: Yes - UMBILICAL HERNIA, LISA PER H&P Genitourinary Surgeries: Cardiac Surgeries: Endocrine Surgeries: Reproductive Surgeries: Yes - PER H&P Neurological Surgeries: Ear Surgeries: Nose Surgeries: Yes - NASAL ENDOSCOPY-REMOVAL OF POLYP PER H&P Throat Surgeries: Yes - TONSILLECTOMY Other Surgeries: Yes - COLONOSCOPY, EGD PER H&P Anesthesia Adverse Reactions: FOUND none Hx of Motion Sickness: No Pertinent Findings EKG Rhythm: Sinus Rhythm EKG Ectopy: PAC Physical Exam Respiratory: Lungs clear Cardiovascular: FOUND Regular rate, rhythm, FOUND No murmur Airway Assessment Mallampati Score: III TMD: 3 Fingerbreadths Neck Extension: Good Teeth: Chipped Teeth/Crowns Overall Assessment: May Be Diff Mask Vent., May Be Diff Intubation ASA: 3 Plan Anesthesia Plan: TIVA Discussion Discussed risks/options/alternatives of anesthesia and questions answered. Patient consents. Nursing pain assessment noted. Present: Family Member Attestation Statement Prior to the delivery of any anesthetic medication, I examined the patient, developed the plan, obtained the patient's consent and discussed the risk and benefits of the procedure with the patient/guardian. PADMINI MONTE I NIGHT WAREHOUSE MANAGER Jul 21, 2016 07:18
[2016-07-21] MEDS ORDERED: PROPOFOL 200mg 20 ML IV ONE (08:38)
[2016-07-21 08:43] VITALS: BP 124/63; PULSE 76; RESP 16; TEMP 97.2; O2SAT 97
[2016-07-21 08:57] VITALS: BP 126/60; PULSE 69; RESP 18; O2SAT 95
[2016-07-21 09:15] VITALS: BP 135/66; PULSE 65; RESP 18; O2SAT 94
--- NOTE | 2016-07-21 09:26 | ANESPO ---
Post-Op Note Date 07/21/16 Time: 09:26 Status Pt Participated in Evaluation: Pt participated in person Vital Signs Date Time Temp Pulse Resp B/P Pulse Ox O2 Delivery O2 Flow Rate FiO2 07/21/16 09:15 65 18 135/66 94 Room Air 07/21/16 08:43 97.2 5.00 Respiratory Function: Airway patent, Regular respirations Cardiovascular Function: Regular pulse Mental Status: Alert/oriented Pain Level Intensity: 0 Unable to Assess Pain Due To: Medicated/Sleeping Hydration: Taking po fluids Complications during Recovery None apparent Follow-Up Instructions Instructions Per Surgeon PADMINI MONTE CRNA Jul 21, 2016 09:26
--- NOTE | 2016-07-21 14:08 | OPNOTEF ---
DATE OF SERVICE 07/21/2016 SURGEON Arsenio Hsieh MD PREOPERATIVE DIAGNOSIS Personal history for diarrhea/change in bowel habits. POSTOPERATIVE DIAGNOSIS Personal history for diarrhea/change in bowel habits, sigmoid diverticulosis, colonic polyp x1 within mid transverse colon. PROCEDURE Colonoscopy with snare polypectomy, random biopsies throughout entire colon via cold biopsy technique. ANESTHESIA TIVA BRIEF HISTORY/INDICATIONS Mrs. Patino is a 66-year-old female who recently presented to my office as a result of her history of increasing stool frequency and at times a component of severe fecal urgency. As a result of the above indications, it was recommended to the patient she undergo a colonoscopy for further evaluation. FINDINGS Upon colonoscopy there was no evidence for angiodysplastic lesions or mercy malignancies. The patient was found to have a single polyp on the order of about 8-9 mm in diameter located within the mid transverse colon. She was found to have a few scattered diverticula within the sigmoid colon region. There was no evidence for underlying colitis but nonetheless given her history for change in bowel habits, I elected to proceed with multiple random biopsies throughout the colon to rule in or rule out the process of microscopic/collagenous colitis. DESCRIPTION OF PROCEDURE After informed consent was obtained, the patient was brought to the endoscopy suite and placed on the table in left lateral decubitus position. The patient subsequently underwent total intravenous anesthesia by the nurse drier unloader per my request. A formal time-out was then completed. Next, a digital rectal examination was performed. Normal sphincter tone. No rectal masses were appreciated. An Olympus colonoscope was inserted in the anus and advanced through the lumen of the colon under direct visualization at all times until the cecum was ascertained. Triangulation of the teniae coli and ileocecal were identified. The scope was then slowly withdrawn, again while maintaining visualization of the lumen at all times. As the scope was being slowly withdrawn, multiple random biopsies were obtained from the ascending colon, transverse colon, descending colon and rectum and placed within a single container via cold biopsy technique. Additionally as the scope was being slowly withdrawn, a single polyp as discussed above was identified within the mid transvers colon. This polyp was transected in its entirety via snare polypectomy technique and suctioned into a colonic trap. Patient was also found to have a few scattered diverticula within the sigmoid colon region. Once the scope was withdrawn back to the rectal vault. A J-maneuver was then performed. The patient was found to have a benign appearing anal papilla but no worrisome perianal pathology was noted. Scope was allowed to straighten and withdrawn through the anal verge. The patient tolerated the procedure without difficulty and was sent back to the preop area in stable condition. Await the biopsy results from today's colonoscopy and proceed accordingly with further recommendations thereafter. MERARY
== END 2016-07-21 09:24 | disposition home or self-care (01) ==
LOC: NSC 06:27
PROVIDERS: ATTEND Surgery
DX: K63.89 Other specified diseases of intestine (principal); K57.30 Diverticulosis of large intestine without perforation or abscess without bleeding; I10 Essential (primary) hypertension; E03.9 Hypothyroidism, unspecified; K21.9 Gastro-esophageal reflux disease without esophagitis; G47.33 Obstructive sleep apnea (adult) (pediatric); E66.01 Morbid (severe) obesity due to excess calories; Z79.84 Long term (current) use of oral hypoglycemic drugs; Z79.82 Long term (current) use of aspirin; Z79.899 Other long term (current) drug therapy; Z88.5 Allergy status to narcotic agent; Z88.8 Allergy status to other drugs, medicaments and biological substances; Z68.43 Body mass index [BMI] 50.0-59.9, adult; Z90.49 Acquired absence of other specified parts of digestive tract; Z83.71 Family history of colonic polyps
CPT/HCPCS: 45380; 45385; 82948; J2704; J7120